=== PATIENT | male | born 1965 | race Caucasian/White ===

== ENCOUNTER 2016-09-19 11:50 | Inpatient (IN) | payer MEDICARE, OTHER ==
[2016-09-19] VITALS (7 sets, daily range): BP systolic 130–153; BP diastolic 80–96
[~2016-09-19] VITALS: Ht 182.9 cm; Wt 86.0 kg
[~2016-09-19 11:50] MED LIST: ALBU83IN INH; ATIV1TAB7 PO; BACL10TA2 PO; DEXT30SUSP PO; DOXY10CA PO; FENT25PA TD; GABA600T PO; GABA800T PO; KETO10TAB PO; METO50TA2 PO; MIRT30TA3 PO; MUCI600T34 PO; NAPR500T2 PO; NEUR300C PO; OXYC-517 PO; PARO30TA70 PO; PARO40TA2 PO; PRAZ2CAP PO; PRED10TA FT; PROA1AER INH; SPIR1CAP INH; SYMB16INH INH; SYMB80INH INH; TRAZ50TA4 PO; TYLE1TAB5 PO
[2016-09-19] MEDS ORDERED: NS 1,000 ML IV SCH (12:38)
[2016-09-19] MEDS ORDERED: LORazepam 2 MG/ML VIAL (J2060) IV STA ×2 (12:38→14:41)
[2016-09-19] MEDS ORDERED: PANTOPRAZOLE 40MG INJ (PROTONIX) (C9113) IV ONE (12:45)
[2016-09-19] MEDS ORDERED: NS 500 ML IV ONE ×2 (12:45→14:00)
[2016-09-19 12:57] LABS: BASO # 0.1 K/mm3 (0.0-0.2); BASO % 0.8 % (0.0-1.0); EOS % 0.7 % (0.0-3.0); LARGE UNSTAINED CELL # 0.1 K/mm3 (0.0-0.4); LARGE UNSTAINED CELL % 1.3 % (0.0-4.0); LYMPH # 1.5 K/mm3 (1.5-4.5); LYMPH % 18.9 % (24.0-44.0); MEAN CORPUSCULAR HEMOGLOBIN 32.1 pg (27.0-33.0); MEAN CORPUSCULAR HGB CONC 33.1 g/dl (32.0-36.5); MEAN CORPUSCULAR VOLUME 97.1 fl (80.0-96.0); MONO # 0.6 K/mm3 (0.0-0.8); MONO % 8.1 % (0.0-5.0); NEUTROPHILS # 5.1 K/mm3 (1.8-7.7); NEUTROPHILS % 70.1 % (36.0-66.0); PLATELET COUNT, AUTOMATED 148 k/mm3 (150-450); RED CELL DISTRIBUTION WIDTH 13.4 % (11.5-14.5); WHITE BLOOD COUNT 7.3 K/mm3 (4.0-10.0)
[2016-09-19 13:01] LABS: INR 1.03
[2016-09-19 13:07] LABS: ALBUMIN/GLOBULIN RATIO 1.05 (1.00-1.93); ALKALINE PHOSPHATASE 79 U/L (45-117); ALT/SGPT 98 U/L (12-78); AMYLASE 109 U/L (25-115); ANION GAP 15 MEQ/L (8-16); AST/SGOT 127 U/L (15-37); BILIRUBIN,DIRECT 0.2 MG/DL (0.0-0.2); BILIRUBIN,TOTAL 0.7 MG/DL (0.2-1.0); BLOOD UREA NITROGEN 5 MG/DL (7-18); CALCIUM LEVEL 8.7 MG/DL (8.5-10.1); CARBON DIOXIDE LEVEL 18 MEQ/L (21-32); CHLORIDE LEVEL 106 MEQ/L (98-107); CREATININE FOR GFR 0.82 MG/DL (0.70-1.30); GLOMERULAR FILTRATION RATE > 60.0 (>56); GLUCOSE, FASTING 166 MG/DL (70-105); POTASSIUM SERUM 3.7 MEQ/L (3.5-5.1); SODIUM LEVEL 139 MEQ/L (136-145); TOTAL PROTEIN 7.8 GM/DL (6.4-8.2)
--- NOTE | 2016-09-19 13:54 | REP ---
PORTABLE CHEST: AP portable view of the chest is performed and compared to a prior study of 06/12/2016. Interstitial fibrosis bilaterally appears essentially stable. The cardiomediastinal silhouette has not definitely changed. The patient is somewhat rotated and the chin overlies the medial lung apices bilaterally. IMPRESSION: Grossly stable with no acute finding. Signed by Hermilo Aldridge MD 09/19/2016 04:53 P
[2016-09-19] MEDS ORDERED: ISOVUE-370 76% 100ML VIAL (Q9967) As Ordered ONE (14:15)
--- NOTE | 2016-09-19 15:28 | REP ---
CT ABDOMEN AND PELVIS WITH IV CONTRAST: TECHNIQUE: Axial contrast enhanced images from the lung bases to the pubic symphysis using 100 mL Isovue 370 intravenous contrast material with multiplanar reformations. Visualized lung bases again demonstrate dense calcific nodular opacities along the pleural surfaces on the right as seen on prior CT of the chest 06/12/2016. This is again suggestive of previous talc pleurodesis. Liver demonstrates diffuse fatty infiltration. Gallbladder is grossly unremarkable. The spleen, adrenals, pancreas and kidneys are unremarkable. There is no abdominal aortic aneurysm with mild scattered atherosclerotic calcifications. There is no adenopathy. There is no free air or free fluid. There is no bowel wall thickening. The appendix is normal. There is sigmoid and left colonic diverticulosis without evidence of acute diverticulitis. There is no pelvic mass. The urinary bladder is not well distended and not well evaluated. There is a left inguinal hernia which contains fat. There is an oval structure inferiorly in the left inguinal canal which I suspect represents the left testicle located in the canal. IMPRESSION: Small left inguinal hernia contains fat and the left testicle appears to be located in the left inguinal canal. Colonic diverticulosis without acute diverticulitis. No free air or free fluid. Fatty infiltration of the liver. Signed by Hermilo Aldridge MD 09/19/2016 04:55 P
[2016-09-19] MEDS ORDERED: NS 1,000 ML IV ONE (15:30)
[2016-09-19] MEDS ORDERED: LORazepam 2 MG TAB PO PRN (15:45)
[2016-09-19] MEDS ORDERED: SUCRALFATE 1 GM TAB PO ONE (16:00)
[2016-09-19] MEDS ORDERED: MULTIVITAMIN -ADULT INJECTION 10 ML, THIAMINE INJection 100 MG, FOLIC ACID 1 MG in NS 1... IV ONE (16:00)
[2016-09-19] MEDS ORDERED: IPRATROPIUM 0.5MG/ALBUTEROL 2.5MG INH SOL UD 3ML (DUONEB)(J7620) NEB PRN (16:15)
[2016-09-19] MEDS ORDERED: LEVALBUTEROL 1.25 MG/0.5 ML CONCENTRATE NEB NEB ONE (16:30)
[2016-09-19] MEDS ORDERED: METOPROLOL TART 50 MG TAB PO ONE (16:30)
[2016-09-19] MEDS ORDERED: diazePAM 5 MG TAB PO ONE (16:30)
[2016-09-19] MEDS ORDERED: LEVALBUTEROL 1.25 MG/0.5 ML CONCENTRATE NEB INH PRN (16:30)
[2016-09-19] MEDS: cloNIDine 0.1 MG TAB PO SCH ×3 (17:00→23:56)
[2016-09-19 18:37] LABS: ANION GAP 9 MEQ/L (8-16); BLOOD UREA NITROGEN 4 MG/DL (7-18); CALCIUM LEVEL 7.6 MG/DL (8.5-10.1); CARBON DIOXIDE LEVEL 21 MEQ/L (21-32); CHLORIDE LEVEL 110 MEQ/L (98-107); GLOMERULAR FILTRATION RATE > 60.0 (>56); GLUCOSE, FASTING 101 MG/DL (70-105); SODIUM LEVEL 140 MEQ/L (136-145)
--- NOTE | 2016-09-19 19:11 | ECGEPIP ---
Stationary ECG Study [facility] - ED Test Date: 2016-09-19 Pat Name: GENOVEVA LUNA Department: Room: - Gender: M Chief Strategy Officer: minnie : 1965 Requested By: INGRID Leon Order Number: [id number] Reading MD: Fahad Carlson Measurements Intervals [place] Rate: 120 P: 8 ND: 293 QRS: 13 QRSD: 83 T: -4 QT: 305 QTc: 432 Interpretive Statements SINUS TACHYCARDIA NSTTW ABNORMALITIES SIMILAR TO 06/12/16 Electronically Signed On 09-19-2016 19:10:39 EDT by Fahad Carlson
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
[2016-09-19] MEDS: IPRATROPIUM 0.5MG/ALBUTEROL 2.5MG INH SOL UD 3ML (DUONEB)(J7620) NEB SCH (20:00)
[2016-09-19] MEDS: ONDANSETRON 4MG/2ML VIAL (J2405) IV PRN (20:15)
[2016-09-19] MEDS: chlordiazePOXIDE 25 MG CAP PO SCH ×2 (20:16→21:56)
[2016-09-19] MEDS: METOPROLOL TART 50 MG TAB PO SCH (20:16)
[2016-09-19] MEDS: LISINOPRIL 5 MG TAB PO SCH (20:16)
[2016-09-19] MEDS: PANTOPRAZOLE 40MG INJ (PROTONIX) (C9113) IV SCH (20:16)
[2016-09-19] MEDS: LORazepam 1 MG TAB PO PRN ×2 (20:18→23:56)
[2016-09-19] MEDS: SUCRALFATE 1 GM TAB PO SCH (21:56)
[2016-09-19] MEDS: LEVALBUTEROL 1.25 MG/0.5 ML CONCENTRATE NEB INH SCH (22:06)
[2016-09-20] VITALS (13 sets, daily range): BP systolic 117–143; BP diastolic 72–95
[2016-09-20] MEDS ORDERED: MULTIVITAMIN -ADULT INJECTION 10 ML, THIAMINE INJection 100 MG, FOLIC ACID 1 MG in NS 1... IV ONE (02:00)
[2016-09-20] MEDS: SUCRALFATE 1 GM TAB PO SCH ×4 (03:23→20:55)
[2016-09-20] MEDS: chlordiazePOXIDE 25 MG CAP PO SCH ×3 (03:23→12:04)
[2016-09-20] MEDS: LEVALBUTEROL 1.25 MG/0.5 ML CONCENTRATE NEB INH SCH ×6 (04:00→19:55)
[2016-09-20] MEDS: cloNIDine 0.1 MG TAB PO SCH ×2 (05:00→09:00)
[2016-09-20 05:26] LABS: BASO % 0.4 % (0.0-1.0); EOS # 0.1 K/mm3 (0.0-0.50); EOS % 2.3 % (0.0-3.0); LARGE UNSTAINED CELL # 0.1 K/mm3 (0.0-0.4); LYMPH # 1.1 K/mm3 (1.5-4.5); MEAN CORPUSCULAR HEMOGLOBIN 32.1 pg (27.0-33.0); MEAN CORPUSCULAR HGB CONC 33.3 g/dl (32.0-36.5); MEAN CORPUSCULAR VOLUME 96.1 fl (80.0-96.0); MONO # 0.3 K/mm3 (0.0-0.8); MONO % 8.9 % (0.0-5.0); NEUTROPHILS # 2.3 K/mm3 (1.8-7.7); NEUTROPHILS % 60.5 % (36.0-66.0); RED CELL DISTRIBUTION WIDTH 13.3 % (11.5-14.5); WHITE BLOOD COUNT 3.9 K/mm3 (4.0-10.0)
[2016-09-20 05:29] LABS: PLATELET COUNT, AUTOMATED 82 k/mm3 (150-450)
[2016-09-20 05:31] LABS: ALBUMIN 2.8 GM/DL (3.2-5.2); ALBUMIN/GLOBULIN RATIO 1.04 (1.00-1.93); ALKALINE PHOSPHATASE 54 U/L (45-117); ALT/SGPT 64 U/L (12-78); ANION GAP 7 MEQ/L (8-16); AST/SGOT 68 U/L (15-37); BILIRUBIN,DIRECT 0.3 MG/DL (0.0-0.2); BILIRUBIN,TOTAL 1.1 MG/DL (0.2-1.0); BLOOD UREA NITROGEN 5 MG/DL (7-18); CALCIUM LEVEL 7.1 MG/DL (8.5-10.1); CARBON DIOXIDE LEVEL 24 MEQ/L (21-32); CHLORIDE LEVEL 110 MEQ/L (98-107); CREATININE FOR GFR 0.68 MG/DL (0.70-1.30); GLOMERULAR FILTRATION RATE > 60.0 (>56); GLUCOSE, FASTING 88 MG/DL (70-105); POTASSIUM SERUM 3.5 MEQ/L (3.5-5.1); SODIUM LEVEL 141 MEQ/L (136-145); TOTAL PROTEIN 5.5 GM/DL (6.4-8.2)
[2016-09-20] MEDS: IPRATROPIUM 0.5MG/ALBUTEROL 2.5MG INH SOL UD 3ML (DUONEB)(J7620) NEB SCH ×4 (07:23→19:55)
[2016-09-20 07:48] LABS: MAGNESIUM LEVEL 1.5 MG/DL (1.8-2.4)
[2016-09-20] MEDS: LISINOPRIL 5 MG TAB PO SCH ×2 (09:00→20:55)
[2016-09-20] MEDS: METOPROLOL TART 50 MG TAB PO SCH ×2 (09:00→20:55)
[2016-09-20] MEDS: PANTOPRAZOLE 40MG INJ (PROTONIX) (C9113) IV SCH ×2 (09:35→20:50)
[2016-09-20 10:14] LABS: VITAMIN B12 LEVEL 370 PG/ML (247-911)
[2016-09-20] MEDS: LORazepam 1 MG TAB PO PRN ×2 (10:25→11:36)
[2016-09-20] MEDS ORDERED: SLF 3 ML SYR IV PRN (10:30)
--- NOTE | 2016-09-20 12:20 | REP ---
SCROTAL ULTRASOUND: Real-time sonographic evaluation of the scrotum and contents performed. Correlation with CT 09/19/2016. On the CT exam, there was a question raised of possible left testicle in the left inguinal canal. Both testicles are within the scrotum and are normal in size and echotexture, right testicle measuring 3.6 x 2.2 x 3.2 cm and the left testicle 4.1 x 2.3 x 2.9 cm. There is no testicular mass or torsion. Blood flow is seen in each testicle with duplex Doppler evaluation, RI right testicle 0.8, left testicle 0.61. A cyst in the body of the right epididymis measures 10 x 7 x 8 mm. Mildly prominent venous structures posteriorly on the left suggest a small varicocele with venous structures measuring up to 3 mm in diameter. IMPRESSION: Both testicles within the scrotal sac with no mass or torsion. Cyst in the body of the right epididymis. Small left varicocele. Signed by Hermilo Aldridge MD 09/20/2016 05:37 P
[2016-09-20] MEDS ORDERED: LORazepam 2 MG/ML VIAL (J2060) IV PRN (12:45)
[2016-09-20] MEDS ORDERED: POTASSIUM CHLORIDE 10 MEQ SR TABLET PO ONE (12:45)
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
--- NOTE | 2016-09-20 12:58 | IPNPDOC ---
Date Seen The patient was seen on 09/20/16. Progress Note SUBJECTIVE: Patient tells me that he feels well today he tells me that he still is having shakes and tremors but he denies nausea or vomiting he tells me that he has no abdominal pain whatsoever and no chest pain or no shortness of breath. He feels better than he did yesterday OBJECTIVE PHYSICAL EXAMINATION: VITAL SIGNS: Please see below. GENERAL: Disheveled middle-aged man laying in bed on his right side he does not appear to be in any acute distress HEENT: Disheveled old facial scars poor dentation malodorous moist mucous membranes, he is not diaphoretic CARDIOVASCULAR: S1-S2 not tachycardic. RESPIRATORY: Clear to auscultation bilaterally. ABDOMINAL: Sounds are present abdomen soft obese and nontender EXTREMITIES: No clubbing cyanosis or edema LABORATORY DATA: Please see below. MICROBIOLOGY: Please see below. IMAGING: He had a chest x-ray that was grossly stable with no acute findings The patient had a CT of the abdomen and pelvis, which revealed small left inguinal hernia contains fat and possibly left testicle in the left inguinal canal colonic diverticulosis without acute diverticulitis no free air fatty infiltrate of the liver Scrotal ultrasound revealed both testicles within the scrotal sac with no mass or torsion small left varicocele and assist in the body of the right epididymis DVT prophylaxis ordered?: Sequentials and teds no pharmacological agents in the setting of possible bleeding ASSESSMENT AND PLAN: This is a 51-year-old man with alcohol withdrawal syndrome. PROBLEMS: (1) Alcohol withdrawal The patient's symptoms are well-controlled at this time he is not hypertensive diaphoretic febrile or tachycardic. At this time we'll discontinue the Librium protocol and provide him with Librium when necessary and IV Ativan when necessary only. He does appear to still have some tremors on exam. The patient is on full gases multivitamin and thiamine. This is also likely the etiology for the patient's mild pancytopenia we'll check a peripheral smear. (2) Upper GI bleed The patient is on Protonix and Carafate he has been seen by Dr. Ervin who reportedly told him there were no intervention needed at this time and Dr. Ervin has advanced his diet to a regular diet, the patient may have had a mild Kady-Roca tear secondary to dry heaving. Continue to monitor H&H continue with PPI Protonix and the patient does have a history of taking ibuprofen and an increased rate for chronic pain at the present time is not having any abdominal symptoms. (3) Depression with suicidal ideation The patient reported that he thought about taking a whole lot of pills or ramming his car into another car to end his own life. For the time being we'll continue with a one-to-one sitter he would likely benefit from a psychiatry consultation prior to any dispositioning to ensure he does not require inpatient mental health services (4) Left inguinal hernia Dr. Ervin's help is appreciated there is no testicular torsion or migration. The patient has a left-sided varicocele which would benefit from outpatient follow-up along with his left internal hernia (5) Marfan syndrome optimize BP control the patient is not exhibiting any signs or symptoms of aortic dissection at this time his symptoms are resolving we'll hold off on echocardiogram will reassess if there is a change in the patient's clinical status (6) History of type C viral hepatitis received ribavirin treatment in past- around year 1999 reportedly obtained hepatitis C from blood transfusion when he was in the many [place], [place]. May be contributing factor to his fatty liver but also likely significant alcohol abuse (7) Chronic back pain dorsal column stimulator, would avoid NSAIDs in the acute setting appears quite comfortable at this time (8) Abdominal pain Resolved likely related to dry heaves potentially some gastritis continue with PPI and Carafate (9) HTN (hypertension) Continue home metoprolol the patient has also been had lisinopril added monitor his blood pressures closely. We'll hold off on clonidine as he does not appear to be the most compliant patient I suspect he would suffer from a rebound hypertension if he would have her stop taking this. At this time it also does not appear that he needs his medications to control his blood pressure (10) COPD (chronic obstructive pulmonary disease) Stable he is not requiring any oxygen he is at his baseline respiratory status continue with Xopenex DISPOSITION: We'll continue to monitor the patient closely. VS, I&O, 24H, Fishbone Vital Signs/I&O Vital Signs Date Time Temp Pulse Resp B/P Pulse Ox O2 Delivery O2 Flow Rate FiO2 09/20/16 11:35 80 135/89 09/20/16 11:30 97.9 22 96 Room Air I&O- Last 24 Hours up to 6 AM 09/20/16 06:00 Intake Total 4560 ml Output Total 300 ml Balance 4260 ml Laboratory Data 24H LABS Laboratory Tests 2 09/19/16 16:50: Lactic Acid Level 1.4 09/19/16 17:53: Anion Gap 9, Blood Urea Nitrogen 4L, Creatinine 0.80, Sodium Level 140, Potassium Level 4.0, Chloride Level 110H, Carbon Dioxide Level 21, Calcium Level 7.6L, Folate 24.0, Glomerular Filtration Rate > 60.0, Vitamin B12 Level 370 09/19/16 20:44: Lactic Acid Level 1.3 09/20/16 05:00: Anion Gap 7L, Calcium Level 7.1L, Glomerular Filtration Rate > 60.0, Aspartate Amino Transf (AST/SGOT) 68H, Alanine Aminotransferase (ALT/SGPT) 64, Alkaline Phosphatase 54, Total Bilirubin 1.1#H, Direct Bilirubin 0.3H, Albumin 2.8#L, Albumin/Globulin Ratio 1.04, White Blood Count 3.9L, Red Blood Count 4.07L, Hemoglobin 13.1L, Hematocrit 39.1L, Mean Corpuscular Volume 96.1H, Mean Corpuscular Hemoglobin 32.1, Mean Corpuscular Hemoglobin Concent 33.3, Red Cell Distribution Width 13.3, Platelet Count 82L, Neutrophils (%) (Auto) 60.5, Lymphocytes (%) (Auto) 26.0, Monocytes (%) (Auto) 8.9H, Eosinophils (%) (Auto) 2.3, Basophils (%) (Auto) 0.4, Neutrophils # (Auto) 2.3, Lymphocytes # (Auto) 1.1L, Monocytes # (Auto) 0.3, Eosinophils # (Auto) 0.1, Basophils # (Auto) 0.0, Large Unclassified Cells # 0.1, Large Unclassified Cells % 2.0, Magnesium Level 1.5L, Thyroid Stimulating Hormone (TSH) 2.670, Total Protein 5.5#L CBC/BMP Laboratory Tests 09/19/16 17:53 Calcium Level 7.6 L 09/19/16 23:43 09/20/16 05:00 Red Blood Count 4.07 L, Mean Corpuscular Volume 96.1 H, Mean Corpuscular Hemoglobin 32.1, Mean Corpuscular Hemoglobin Concent 33.3, Red Cell Distribution Width 13.3, Neutrophils (%) (Auto) 60.5, Lymphocytes (%) (Auto) 26.0, Monocytes (%) (Auto) 8.9 H, Eosinophils (%) (Auto) 2.3, Basophils (%) ( Auto) 0.4, Neutrophils # (Auto) 2.3, Lymphocytes # (Auto) 1.1 L, Monocytes # ( Auto) 0.3, Eosinophils # (Auto) 0.1, Basophils # (Auto) 0.0 Microbiology Microbiology 09/19/16 Blood Culture, Received Pending 09/19/16 Blood Culture, Received Pending MEI ENRIQUEZ MD Sep 20, 2016 12:58
--- NOTE | 2016-09-20 13:01 | IPN ---
DATE: 09/20/2016 The patient overnight has been stable. No hematemesis. No nausea, vomiting. Has not undergone any significant DTs overnight. From a GI standpoint, has not had any melanotic stools. No blood per rectum. Has tolerated clears without any nausea, vomiting, and states that overall his abdominal epigastric pain has resolved/resolving. His laboratory findings reveal that he has a stable hematocrit this morning. Since last night, his lactic acid is stable and not elevated. He has been afebrile. Abdomen is benign on exam. IMPRESSION AND PLAN: 1. Patient has GI bleeding and seems to be stable at this time. I would recommend that we start him on a regular diet and if he tolerates a regular diet and has a stable hematocrit, he can be discharged to home from a surgical standpoint and followup with GI as an outpatient. I do feel that a GI followup is more appropriate given that he has a much higher risk of esophageal varices or gastric varices, although I am not seeing any evidence of this on the CAT scan for gastric varices, esophageal varices. I am concerned there is some contrast along the distal esophagus in the mucosa suggesting some venous phase uptake, i.e. veins are prominent in this area. If GI evaluation/followup is not arranged, I would be glad to see him in my office in 2-3 weeks for followup. 2. Inguinal hernia. As I stated previously, I am not seeing a significant abnormality on his physical exam. His scrotal ultrasound results are not back as of yet. I do not see any evidence of significant abnormality on the left-hand side. Thus, he can followup on a as needed basis concerning this issue as well. If the final ultrasound report dictates something contrary to this, I would recommend urology followup.
[2016-09-20 13:39] LABS: REASON FOR REVIEW COMPREHENSIVE REVIEW
[2016-09-20] MEDS: MAG SULF 1GM/100ML (MAG RUN) 1 GM in APPROPRIATE DILUENT 1 EA IV SCH ×2 (14:00→14:20)
[2016-09-20] MEDS: SLF 3 ML SYR IV SCH ×2 (14:21→20:56)
[2016-09-20] MEDS: MULTIVITAMINS/MINERALS THERAP 1 TAB PO SCH (14:49)
[2016-09-20] MEDS: ONDANSETRON 4MG/2ML VIAL (J2405) IV PRN ×2 (14:49→20:50)
[2016-09-20] MEDS: THIAMINE 100 MG TAB PO SCH (14:49)
[2016-09-20] MEDS: FOLIC ACID 1 MG TAB PO SCH (14:49)
[2016-09-20] MEDS ORDERED: ALBUTEROL 90 MCG/ACT 8GM HFA INHALER INH PRN (17:15)
[2016-09-20] MEDS: GABAPENTIN 300 MG CAP PO SCH ×2 (18:00→20:54)
[2016-09-20] MEDS: chlordiazePOXIDE 25 MG CAP PO PRN (18:18)
[2016-09-20] MEDS: PARoxetine 10MG TABLET PO SCH (18:45)
--- NOTE | 2016-09-20 19:32 | ECHO ---
DATE OF PROCEDURE: 09/20/2016 AGE: 51 GENDER: Male HEIGHT: 72 inches WEIGHT: 169 pounds BODY SURFACE AREA: 1.99 m2. Inpatient progressive care unit (PCU) Room 3219. REFERRING PHYSICIAN: Brianna Bose INDICATION: Marfan's. Dilated aortic root. Murmur. MEASUREMENTS: 2-D measurements: RV - 4.2 cm LV - 5.2 cm Septum- 1.1 cm Posterior wall- 1.1 cm Aortic root- 4.1 cm LA - 3.8 cm LVEF- 65% Doppler measurements: AV - 1.2 m/s LVOT - 0.98 m/s LVOT diameter 2.2 cm MV-E - 77 A- 86 E/A ratio 0.9 Early mitral deceleration time: 190 m/s E-Prime 6.2 A-Prime 14 E/E Prime ratio 12.5 PV - 0.8 m/s Pulmonary artery acceleration time 99 m/s RVSP- 34 mmHg IVC - 2.1 cm COMMENTS: Normal sinus rhythm without intraventricular conduction disturbance. Slightly challenging study in light of the patient's chest configuration but diagnostically useful information was still obtained. Left atrial size upper limits of normal. Normal left ventricular size. Right heart chamber sizes were both of borderline increased. Normal left ventricle (LV) wall thickness. On real-time imaging from the parasternal and apical injections, wall motion appeared to be symmetrical and normal. Normal-appearing mitral valvular apparatus and leaflet excursion with no posterior systolic buckling. Three equal size aortic cusps of normal thickness and cusp separation. At least mildly dilated aortic root but normal ascending aortic size. No apparent intracardiac mass or pericardial effusion. Color flow Doppler study taken from the parasternal and projection showed at least mild aortic, very mild mitral and trace aortic insufficiency. Guided continuous wave Doppler of his aortic valve showed a normal peak systolic velocity against LV outflow tract obstruction. Pulsed and continuous wave Doppler of his LV inflow tract taken from the apical four-chamber projection showed normal diastolic filling velocities against mitral stenosis. There was slightly more prominent late diastolic / atrial dependent filling pattern. His early mitral deceleration time was normal but tissue Doppler of his mitral annulus to suggest degree of LV diastolic dysfunction as well. Current estimated mean left atrial pressure however was upper limits of normal at 12 - 13 mmHg. Pulsed and continuous wave Doppler of his pulmonary trunk showed a normal peak systolic velocity against right ventricular (RV) outflow tract obstruction. His pulmonary artery acceleration time was mildly abbreviated suggestive an elevated pulmonary vascular resistance. Guided continuous wave Doppler of his tricuspid valve allowed our estimation of his right ventricular systolic pressure (at least mildly elevated). His inferior vena cava was upper limits of normal in size. CONCLUSIONS: Normal left ventricular size, wall thickness and wall motion. Borderline dilated left atrium with Doppler evidence of an impairment of LV diastolic function but currently normal to upper limits of normal estimated mean left atrial pressure. Borderline dilated right heart chambers with Doppler with normal right ventricular systolic function. Mildly elevated pulmonary arterial pressure. Slightly dilated IVC size. At least mildly dilated aortic root with mild aortic insufficiency. No intrinsic aortic valvular abnormality. Normal appearing mitral valve with very mild insufficiency.
[2016-09-20] MEDS: SYMBICORT 160/4.5MCG INHALER 6GM INH SCH (19:54)
[2016-09-20] MEDS ORDERED: TIOTROPIUM INHALER/CAPSULE (SPIRIVA) INH SCH (20:00)
[2016-09-20] MEDS: BACLOFEN 10 MG TAB PO SCH (20:55)
[2016-09-20] MEDS ORDERED: traZODone 100 MG TAB PO SCH (21:00)
[2016-09-20] MEDS ORDERED: chlordiazePOXIDE 25 MG CAP PO SCH (21:00)
[2016-09-20] MEDS ORDERED: MIRTAZAPINE 15 MG TAB PO SCH (21:00)
[2016-09-20] MEDS ORDERED: PRAZOSIN 1 MG CAP PO SCH (21:00)
[2016-09-21] VITALS (7 sets, daily range): BP systolic 93–155; BP diastolic 55–107
[2016-09-21] MEDS: chlordiazePOXIDE 25 MG CAP PO PRN ×3 (01:35→15:40)
[2016-09-21] MEDS: LEVALBUTEROL 1.25 MG/0.5 ML CONCENTRATE NEB INH SCH ×5 (04:00→16:00)
[2016-09-21] MEDS: SLF 3 ML SYR IV SCH ×2 (04:01→12:18)
[2016-09-21] MEDS: SUCRALFATE 1 GM TAB PO SCH ×3 (04:01→15:39)
[2016-09-21] MEDS ORDERED: ACETAMINOPHEN TAB 650MG DOSE (2X325MG) PO ONE (04:15)
[2016-09-21 05:37] LABS: BASO % 0.3 % (0.0-1.0); EOS # 0.1 K/mm3 (0.0-0.50); EOS % 1.7 % (0.0-3.0); LARGE UNSTAINED CELL # 0.1 K/mm3 (0.0-0.4); LARGE UNSTAINED CELL % 1.8 % (0.0-4.0); LYMPH % 24.8 % (24.0-44.0); MEAN CORPUSCULAR HEMOGLOBIN 32.5 pg (27.0-33.0); MEAN CORPUSCULAR VOLUME 98.6 fl (80.0-96.0); MONO # 0.2 K/mm3 (0.0-0.8); MONO % 5.7 % (0.0-5.0); NEUTROPHILS # 2.6 K/mm3 (1.8-7.7); NEUTROPHILS % 65.6 % (36.0-66.0); RED CELL DISTRIBUTION WIDTH 13.1 % (11.5-14.5)
[2016-09-21 05:43] LABS: PLATELET COUNT, AUTOMATED 86 k/mm3 (150-450)
[2016-09-21 05:51] LABS: ALBUMIN 2.9 GM/DL (3.2-5.2); ALBUMIN/GLOBULIN RATIO 1.12 (1.00-1.93); ALKALINE PHOSPHATASE 55 U/L (45-117); ALT/SGPT 51 U/L (12-78); ANION GAP 8 MEQ/L (8-16); AST/SGOT 48 U/L (15-37); BILIRUBIN,DIRECT 0.2 MG/DL (0.0-0.2); BILIRUBIN,TOTAL 0.8 MG/DL (0.2-1.0); BLOOD UREA NITROGEN 4 MG/DL (7-18); CALCIUM LEVEL 7.7 MG/DL (8.5-10.1); CARBON DIOXIDE LEVEL 25 MEQ/L (21-32); CHLORIDE LEVEL 111 MEQ/L (98-107); CREATININE FOR GFR 0.81 MG/DL (0.70-1.30); GLOMERULAR FILTRATION RATE > 60.0 (>56); GLUCOSE, FASTING 145 MG/DL (70-105); POTASSIUM SERUM 3.3 MEQ/L (3.5-5.1); SODIUM LEVEL 144 MEQ/L (136-145); TOTAL PROTEIN 5.5 GM/DL (6.4-8.2)
[2016-09-21] MEDS: IPRATROPIUM 0.5MG/ALBUTEROL 2.5MG INH SOL UD 3ML (DUONEB)(J7620) NEB SCH ×3 (07:36→15:26)
[2016-09-21] MEDS: SYMBICORT 160/4.5MCG INHALER 6GM INH SCH (07:36)
[2016-09-21] MEDS: PANTOPRAZOLE 40MG INJ (PROTONIX) (C9113) IV SCH (08:59)
[2016-09-21] MEDS: BACLOFEN 10 MG TAB PO SCH (09:00)
[2016-09-21] MEDS: THIAMINE 100 MG TAB PO SCH (09:00)
[2016-09-21] MEDS: FOLIC ACID 1 MG TAB PO SCH (09:00)
[2016-09-21] MEDS: LISINOPRIL 5 MG TAB PO SCH (09:00)
[2016-09-21] MEDS: GABAPENTIN 300 MG CAP PO SCH ×2 (09:01→15:39)
[2016-09-21] MEDS: PARoxetine 10MG TABLET PO SCH (09:01)
[2016-09-21] MEDS: MULTIVITAMINS/MINERALS THERAP 1 TAB PO SCH (09:01)
[2016-09-21] MEDS: METOPROLOL TART 50 MG TAB PO SCH (09:01)
[2016-09-21] MEDS: oxyCODONE 5MG TAB PO PRN ×2 (11:07→17:38)
[2016-09-21] MEDS ORDERED: oxyCODONE 5MG TAB PO ONE (12:15)
[2016-09-21] MEDS ORDERED: chlordiazePOXIDE 25 MG CAP PO SCH (19:00)
[2016-09-21] MEDS ORDERED: SUCR1TA PO (19:13)
[2016-09-21] MEDS ORDERED: VITMTA PO (19:13)
[2016-09-21] MEDS ORDERED: THIA100TA PO (19:13)
[2016-09-21] MEDS ORDERED: FOLI1TAB2 PO (19:13)
[2016-09-21] MEDS ORDERED: CHLO25CA PO (19:13)
[2016-09-21] MEDS ORDERED: PROT1TAB2 PO (19:13)
--- NOTE | 2016-09-22 08:16 | CR ---
DATE OF CONSULTATION: 09/21/2016 HISTORY OF PRESENT ILLNESS: This is a 51-year-old white man with serious problems with alcohol abuse who is admitted for delirium tremens and mild gastrointestinal bleed. At this point, he seems to be stable and seemed to be detoxifying without any major complications. I was asked to see the patient because at some point the patient had voiced thoughts of suicide saying that he wanted to take pills or maybe crash his car. The patient tells me that he said that early on when he was not feeling good physically because he was detoxing. He said that they asked him if he was going to hurt himself and how he would hurt himself and he said that is why he mentioned no specific manner. He says that he had no suicidal intention then or now. He says that he is feeling much better now that he has completed detoxification. He denies that he is having depression at this point. We discussed the fact that apparently his had kicked him out of the home and that he had been staying at a motel. He says that his plan is to go back to that motel but then he has decided that he does not want to drink anymore and he wants to seek treatment for that. He does say that he gets psychiatric treatment through the [facility] and they have him on Paxil 25 mg once daily. He says that he has some posttraumatic stress disorder (PTSD) symptoms, mostly in the form of nightmares, but again this is a chronic condition for the patient. I did not elicit any hypomanic or manic-like symptoms in this patient, or obsessive compulsive disorder (OCD) or panic disorder. PAST PSYCHIATRIC HISTORY: He has never had any admission to a psychiatric unit. As I said above, he has [facility] for PTSD symptoms, mostly in the way of nightmares, and he is on Paxil 25 mg daily. SUBSTANCE ABUSE HISTORY: He says that he was drinking anywhere from 12 to 20 beers every day. He denies using any drugs. ABUSE HISTORY: He denies any history of physical or sexual abuse. FAMILY HISTORY: He says that he was adopted. MEDICAL HISTORY: As I said, he has just completed detoxification and it appears that he was having delirium tremens when he was first admitted. 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 MENTAL STATUS EXAMINATION: This patient is alert and oriented times three. Eye contact is fairly good. Psychomotor activity is normal. There is no formal thought disorder. He said his mood is good. Affect is full range and appropriate. He is not suicidal. Concentration is fair. Memory intact. Insight and judgment good. DIAGNOSES: 1. Posttraumatic stress disorder (PTSD) by history. 2. Alcohol use disorder, severe. 3. Status post alcohol withdrawal syndrome. TREATMENT PLAN: I do want to clarify that in reviewing the patient's admission note and progress notes, the patient did have withdrawal symptoms, but there was no evidence of any delirium tremens. At this point, the patient is denying suicidal ideation. He did say that he voiced some suicidal thoughts but that was at the beginning when he was not feeling good physically. Therefore, from a psychiatric point of view, he is not committable. He does not want to the psychiatric unit. He is determined, he says, that he does not want to go back to drinking again after going back to the motel, but he is aware that [facility] outpatient addictions program has walk-in appointments every day in the morning. I told him to get there as soon as possible in the morning on Friday and he said that he will. I discussed with the patient that he might benefit from inpatient treatment and that they might be able to then help him with referral. The patient's father had actually been visiting the patient and I asked him if it was possible for him to go and stay with his parents, but basically he says that both parents tend to drink every day also and so that is not a stable environment for him.
--- NOTE | 2016-09-22 14:52 | DSES ---
DATE OF ADMISSION: 09/19/2016 DATE OF DISCHARGE: 09/21/2016 DISCHARGE DIAGNOSIS: Alcohol withdrawal. SECONDARY DIAGNOSES: 1. Depression with suicidal ideation. 2. Upper gastrointestinal bleed. 3. Left inguinal hernia. 4. Questionable Marfan's syndrome. 5. Hepatitis C. 6. Chronic back pain. 7. Hypertension. 8. Chronic obstructive pulmonary disease (COPD). HOSPITALIZATION COURSE: The patient is a 51-year-old man who recently had an argument with his and was living in a motel. He has chronic severe alcohol use disorder. He has been drinking more heavily in the recent weeks. He has been trying to stop drinking, but he began having severe nausea, vomiting, abdominal pain. He did have some hematemesis. The patient was admitted to the medical/surgical floor and was admitted to the hospitalist service. He was seen in consultation by Dr. Ervin. Initially, there was some concern that one of his testicles was in his inguinal sac based on imaging; however, physical examination and scrotal ultrasound did not reveal this and instead it was noted to be likely a varicocele. Hemoglobin and hematocrit remained stable. It was felt that his bleeding may have been related to some gastritis. Dr. Ervin was concerned that given his history of hepatitis C he may be at risk for esophageal varices and suggested that he should followup with gastroenterology in the near future on the outpatient setting. 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 No interventions were required. He was placed on proton pump inhibitor and Carafate. In regard to his inguinal hernia, there was no significant abnormality and he should likely have outpatient urology referral as well in regard to his varicocele. In terms of his alcohol withdrawal, the patient was treated medically. His symptoms did resolve and were easily controlled. In regard to his suicidal ideation, he was seen by Dr. Eddy of psychiatry, who did not feel that he warranted inpatient mental health and did not feel that he was a risk to himself. He was provided with contact information as a walk in to [facility] addictions services on Friday morning. SUBJECTIVE: The patient reports that he is feeling well. He denies any complaints and wants to go home. OBJECTIVE: VITAL SIGNS: Temperature 98.2, pulse 86, respiratory rate 19, blood pressure 140/74, oxygen saturation 98% on room air. GENERAL: He is a disheveled, middle aged, man resting comfortably in bed. No acute distress. HEENT: He has old facial scars. Moist mucous membranes. No elevation in central venous pressure. CARDIOVASCULAR EXAM: S1, S2. Regular. RESPIRATORY EXAM: Clear. ABDOMINAL EXAM: Obese. He has some tenderness in the right upper quadrant. EXTREMITIES: No clubbing, cyanosis or edema. There is no tremor. LABORATORY STUDIES: WBC 4.0, hemoglobin 12.8, platelet count is 86. Chemistry panel: Sodium 144, potassium 3.3, chloride 111, bicarbonate 25, BUN 4, creatinine 0.8. IMAGING: The patient had a scrotal ultrasound that revealed a cyst in the body of the right epididymis, small left varicocele. ASSESSMENT AND PLAN: 51-year-old man with alcohol withdrawal syndrome. 1. Alcohol withdrawal syndrome. He will be discharged with medications to control his symptoms as he is recovering. He is provided with contact information and advised to report to [facility] addiction services Friday morning at 8:00 a.m. He is provided with folic acid, multivitamin, and thiamine. This is most likely the etiology for his pancytopenia. 2. Upper gastrointestinal bleed, likely secondary to some mild gastritis associated . 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 Avoid taking ibuprofen. 3. Depression with suicidal ideation. Dr. Eddy's help is appreciated. Dr. Eddy does not feel as though he is a risk to himself and does not warrant inpatient mental health services. 4. Left sided epididymal cyst and small varicocele. Consider outpatient urology followup. 5. Marfan's syndrome. Blood pressure controlled. No issues at this time. He had an echocardiogram, which revealed borderline dilated right hear chambers without significant gross abnormality. 6. Hepatitis C, status post treatment and reported cure in the year 1999. 7. Chronic pain. He has a dorsal column stimulator. Would avoid nonsteroidal antiinflammatory drugs in the future. 8. Hypertension. He was on metoprolol. This seems to be enough to control his blood pressure. He does not require any new prescriptions for this on his discharge. 9. Chronic obstructive pulmonary disease (COPD). He is at his baseline respiratory status. DISPOSITION: The patient is discharged home to his previous living environment. He is to followup with his primary care provider in 7 days, followup with psychiatric as soon as possible, followup with [facility] addiction clinic Friday morning. His activity and diet are as prior to admission; however, he is to avoid alcohol. I tried to electronically prescribe controlled substance but was having a computer malfunction and it was unable to be transmitted. As such, a paper prescription was provided for chloride chlordiazepoxide 50 mg every four hours as needed for withdrawal symptoms, #18, folic acid 1 mg daily, multivitamin one tablet daily, Protonix 40 mg daily, Carafate 1 gram every 6 hours, thiamine 100 mg daily, ProAir HFA 108 mcg two puffs four times a day as needed for shortness of breath, Baclofen 10 mg twice a day, Symbicort 160/4.5 two puffs inhaled twice a day, gabapentin 600 mg three times a day, metoprolol tartrate 50 mg twice a day, mirtazapine 30 mg at night, paroxetine 30 mg daily, Prazosin 6 mg at night, Spiriva 18 mcg inhaled at night, trazodone 100 mg at night. Greater than 30 minutes was spent organizing disposition.
[2016-09-22] MEDS ORDERED: chlordiazePOXIDE 25 MG CAP PO SCH (21:00)
== END 2016-09-21 19:50 | disposition home or self-care (01) | DRG 896 ==
LOC: M ED 13:40 → M ED INP 15:15 → M PCU 18:40
PROVIDERS: ADMIT General Practice; ATTEND Internal Medicine
DX: F10.239 Alcohol dependence with withdrawal, unspecified (principal); K29.21 Alcoholic gastritis with bleeding; Q87.40 Marfan syndrome, unspecified; D61.818 Other pancytopenia; J44.9 Chronic obstructive pulmonary disease, unspecified; F32.9 Major depressive disorder, single episode, unspecified; I10 Essential (primary) hypertension; R91.8 Other nonspecific abnormal finding of lung field; K76.0 Fatty (change of) liver, not elsewhere classified; F17.210 Nicotine dependence, cigarettes, uncomplicated; R10.13 Epigastric pain; K40.90 Unilateral inguinal hernia, without obstruction or gangrene, not specified as recurrent; M54.9 Dorsalgia, unspecified; I86.1 Scrotal varices; F43.12 Post-traumatic stress disorder, chronic; E66.9 Obesity, unspecified; N50.3 Cyst of epididymis; G89.29 Other chronic pain; Z88.8 Allergy status to other drugs, medicaments and biological substances; Z79.899 Other long term (current) drug therapy; Z86.19 Personal history of other infectious and parasitic diseases

== ENCOUNTER 2017-06-15 15:04 | Emergency (ER) | payer OTHER, MEDICARE ==
[2017-06-15] MEDS: ALBUTEROL SULFATE 2.5 MG/0.5 ML INH NEB SOLN NEB ×2 (18:12→20:08)
[2017-06-15 18:35] LABS: BASO # 0.1 10^3/uL (0.0-0.2); BASO % 0.7 % (0.0-1.0); EOS # 0.3 10^3/uL (0.0-0.50); EOS % 4.5 % (0.0-3.0); HEMOGLOBIN 14.8 g/dl (14.0-18.0); IMMATURE GRANULOCYTE % 0.4 % (0-0); LYMPH # 2.3 10^3/uL (1.5-4.5); LYMPH % 31.4 % (24.0-44.0); MEAN CORPUSCULAR HEMOGLOBIN 30.6 pg (27.0-33.0); MEAN CORPUSCULAR HGB CONC 33.6 g/dl (32.0-36.5); MEAN CORPUSCULAR VOLUME 90.9 fl (80.0-96.0); MONO # 0.6 10^3/uL (0.0-0.8); PLATELET COUNT, AUTOMATED 150 10^3/uL (150-450); RED BLOOD COUNT 4.84 10^6/uL (4.30-6.10); RED CELL DISTRIBUTION WIDTH 12.9 % (11.5-14.5); WHITE BLOOD COUNT 7.4 10^3/uL (4.0-10.0)
[2017-06-15] MEDS: NS 1,000 ML IV (18:40)
[2017-06-15] MEDS: KETOROLAC 30 MG/ML VIAL (J1885) IV (18:40)
[2017-06-15] MEDS: methylPREDNISolone INJ 125 MG/2 ML VIAL (J2930) IV (18:40)
[2017-06-15 18:59] LABS: ALBUMIN 4.1 GM/DL (3.2-5.2); ALBUMIN/GLOBULIN RATIO 1.32 (1.00-1.93); ALKALINE PHOSPHATASE 59 U/L (45-117); ALT/SGPT 21 U/L (12-78); ANION GAP 10 MEQ/L (8-16); AST/SGOT 18 U/L (7-37); BILIRUBIN,DIRECT < 0.1 MG/DL (0.0-0.2); BILIRUBIN,TOTAL 0.3 MG/DL (0.2-1.0); BLOOD UREA NITROGEN 9 MG/DL (7-18); CALCIUM LEVEL 8.3 MG/DL (8.5-10.1); CARBON DIOXIDE LEVEL 26 MEQ/L (21-32); CHLORIDE LEVEL 106 MEQ/L (98-107); CREATININE FOR GFR 1.19 MG/DL (0.70-1.30); GLOMERULAR FILTRATION RATE > 60.0 (>56); GLUCOSE, FASTING 108 MG/DL (70-105); NT-PRO BNP 22 PG/ML (<125); POTASSIUM SERUM 3.8 MEQ/L (3.5-5.1); SODIUM LEVEL 142 MEQ/L (136-145); TOTAL PROTEIN 7.2 GM/DL (6.4-8.2)
[2017-06-15] MEDS: LevoFLOXacin IV 750 MG in APPROPRIATE DILUENT 1 EA IV (19:51)
[2017-06-15] MEDS: MORPHINE 2 MG/ML 1ML SYRINGE IV (20:05)
== END 2017-06-15 22:21 | disposition home or self-care (01) ==
LOC: M ED 15:04
DX: J44.0 Chronic obstructive pulmonary disease with (acute) lower respiratory infection (principal); I10 Essential (primary) hypertension; B19.9 Unspecified viral hepatitis without hepatic coma; E78.5 Hyperlipidemia, unspecified; F33.9 Major depressive disorder, recurrent, unspecified; K21.9 Gastro-esophageal reflux disease without esophagitis; F10.11 Alcohol abuse, in remission; F17.210 Nicotine dependence, cigarettes, uncomplicated; Z79.899 Other long term (current) drug therapy; Z88.8 Allergy status to other drugs, medicaments and biological substances; Z87.09 Personal history of other diseases of the respiratory system; Z87.820 Personal history of traumatic brain injury; Z86.39 Personal history of other endocrine, nutritional and metabolic disease; Z98.890 Other specified postprocedural states; Z90.2 Acquired absence of lung [part of]
CPT/HCPCS: J1956

== ENCOUNTER 2017-07-16 20:13 | Inpatient (IN) | payer OTHER ==
[2017-07-16] MEDS: PRAVASTATIN 20 MG TAB PO (21:00)
[2017-07-16] MEDS: traZODone 50 MG TAB PO (21:00)
[2017-07-16] MEDS: dexameTHASONE 20 MG/5 ML VIAL (J1100) IV (21:15)
[2017-07-16] MEDS: IPRATROPIUM 0.5MG/ALBUTEROL 2.5MG INH SOL UD 3ML (DUONEB)(J7620) NEB ×3 (21:22→21:23)
[2017-07-16 23:07] LABS: ABG BASE EXCESS 0.4 (-2.0-2.0); ABG HCO3 23.3 MEQ/L (22.0-26.0); ABG O2 SATURATION 91.9 % (95.0-99.0); ABG PARTIAL PRESSURE CO2 32.4 mmHg (35.0-45.0); ABG PARTIAL PRESSURE O2 59.7 mmHg (75.0-100.0); ABG STANDARD HCO3 24.7 MEQ/L (22.0-26.0); ABG TOTAL CO2 24.3 MEQ/L (22.0-29.0); ABG pH (ARTERIAL) 7.474 UNITS (7.350-7.450)
[2017-07-16 23:23] LABS: BASO # 0.1 10^3/uL (0.0-0.2); BASO % 0.8 % (0.0-1.0); EOS # 0.2 10^3/uL (0.0-0.50); EOS % 2.7 % (0.0-3.0); HEMATOCRIT 38.3 % (42.0-52.0); HEMOGLOBIN 13.1 g/dl (14.0-18.0); IMMATURE GRANULOCYTE # 0.1 10^3/uL (0-0); IMMATURE GRANULOCYTE % 1.6 % (0-0); LYMPH # 1.2 10^3/uL (1.5-4.5); LYMPH % 15.7 % (24.0-44.0); MEAN CORPUSCULAR HEMOGLOBIN 30.8 pg (27.0-33.0); MEAN CORPUSCULAR HGB CONC 34.2 g/dl (32.0-36.5); MEAN CORPUSCULAR VOLUME 90.1 fl (80.0-96.0); MONO # 0.8 10^3/uL (0.0-0.8); MONO % 9.9 % (0.0-5.0); NEUTROPHILS # 5.5 10^3/uL (1.8-7.7); NEUTROPHILS % 69.3 % (36.0-66.0); PLATELET COUNT, AUTOMATED 135 10^3/uL (150-450); RED BLOOD COUNT 4.25 10^6/uL (4.30-6.10); RED CELL DISTRIBUTION WIDTH 13.1 % (11.5-14.5); WHITE BLOOD COUNT 7.9 10^3/uL (4.0-10.0)
[2017-07-16 23:45] LABS: ANION GAP 9 MEQ/L (8-16); BLOOD UREA NITROGEN 20 MG/DL (7-18); CALCIUM LEVEL 8.2 MG/DL (8.5-10.1); CARBON DIOXIDE LEVEL 24 MEQ/L (21-32); CHLORIDE LEVEL 105 MEQ/L (98-107); CREATININE FOR GFR 1.04 MG/DL (0.70-1.30); GLOMERULAR FILTRATION RATE > 60.0 (>56); GLUCOSE, FASTING 88 MG/DL (70-100); NT-PRO BNP 18 PG/ML (<125); POTASSIUM SERUM 4.1 MEQ/L (3.5-5.1); SODIUM LEVEL 138 MEQ/L (136-145)
[2017-07-17] MEDS: IPRATROPIUM 0.5MG/ALBUTEROL 2.5MG INH SOL UD 3ML (DUONEB)(J7620) NEB ×4 (00:29→19:49)
[2017-07-17] MEDS ORDERED: ONDANSETRON 4MG/2ML VIAL (J2405) IV ×2 (01:45→14:30)
[2017-07-17 02:18] LABS: LACTIC ACID SEPSIS PROTOCOL 1.1 MMOL/L (0.4-2.0)
[2017-07-17] MEDS: KETOROLAC 30 MG/ML VIAL (J1885) IV ×3 (03:08→19:57)
[2017-07-17] MEDS: MIRTAZAPINE 15 MG TAB PO ×2 (03:56→20:39)
[2017-07-17] MEDS: methylPREDNISolone INJ 40 MG/1 ML VIAL (J2920) IV ×2 (05:55→18:00)
[2017-07-17] MEDS: BENZONATATE 100 MG CAP PO ×3 (05:55→20:39)
[2017-07-17] MEDS: FIORICET TAB PO ×3 (06:04→20:40)
[2017-07-17] MEDS: ENOXAPARIN 40 MG/0.4 ML SYRINGE (J1650) SC (08:31)
[2017-07-17] MEDS: buPROPion **XL** TABLET 150MG (WELLBUTRIN XL) PO (08:31)
[2017-07-17] MEDS: GABAPENTIN 300 MG CAP PO ×3 (08:31→20:36)
[2017-07-17] MEDS: DOXYCYCLINE HYCLATE 100 MG TAB PO ×2 (08:32→20:40)
[2017-07-17] MEDS: BACLOFEN 10 MG TAB PO ×3 (08:32→20:39)
[2017-07-17] MEDS: TAMSULOSIN 0.4 MG CAP PO (08:33)
[2017-07-17] MEDS: METOPROLOL SUCC (TopROL XL) 50MG **XL** TAB PO ×2 (08:33→20:38)
[2017-07-17] MEDS: QUEtiapine FUMARATE 50 MG TAB PO ×3 (08:33→20:36)
[2017-07-17] MEDS: FAMOTIDINE 20 MG TAB PO ×2 (08:33→18:00)
[2017-07-17] MEDS: SENOKOT S TAB PO ×2 (08:33→20:40)
[2017-07-17] MEDS: FORMOTEROL FUMARATE 20 MCG/2 ML INHALATION SOLUTION (PERFOROMIST) INH ×2 (09:14→19:48)
[2017-07-17] MEDS: BUDESONIDE 0.5 MG/2 ML INHALATION SUSPENSION INH ×2 (09:14→19:48)
[2017-07-17] MEDS: PERCOCET 5MG/325MG TAB PO ×2 (09:53→18:07)
[2017-07-17 13:17] LABS: BEDSIDE GLUCOSE 575 MG/DL (70-105)
[2017-07-17] MEDS ORDERED: HEPARIN SOD (PORCINE) 5000 UNITS/ML VIAL SC (14:00)
[2017-07-17 14:03] LABS: BEDSIDE GLUCOSE CONFIRMATION 576 MG/DL (LESS THAN 200)
[2017-07-17] MEDS ORDERED: GLUCOSE 4 GM CHEW TABLET PO (14:15)
[2017-07-17] MEDS ORDERED: GLUCAGON FOR INJ 1 MG VIAL (J1610) SC (14:15)
[2017-07-17] MEDS ORDERED: DEXTROSE 50% 50 ML SYRINGE IV (14:15)
[2017-07-17] MEDS ORDERED: ACETAMINOPHEN TAB 650MG DOSE (2X325MG) PO (14:30)
[2017-07-17] MEDS: HumaLOG INSULIN (NovoLOG) PER UNIT SC ×3 (14:42→20:36)
[2017-07-17 14:54] LABS: BASO % 0.1 % (0.0-1.0); HEMATOCRIT 34.4 % (42.0-52.0); HEMOGLOBIN 11.8 g/dl (14.0-18.0); IMMATURE GRANULOCYTE # 0.1 10^3/uL (0-0); IMMATURE GRANULOCYTE % 0.7 % (0-0); LYMPH # 0.7 10^3/uL (1.5-4.5); LYMPH % 5.1 % (24.0-44.0); MEAN CORPUSCULAR HEMOGLOBIN 31.1 pg (27.0-33.0); MEAN CORPUSCULAR HGB CONC 34.3 g/dl (32.0-36.5); MEAN CORPUSCULAR VOLUME 90.5 fl (80.0-96.0); MONO # 0.6 10^3/uL (0.0-0.8); MONO % 4.9 % (0.0-5.0); NEUTROPHILS # 11.7 10^3/uL (1.8-7.7); NEUTROPHILS % 89.2 % (36.0-66.0); PLATELET COUNT, AUTOMATED 132 10^3/uL (150-450); RED CELL DISTRIBUTION WIDTH 13.1 % (11.5-14.5); WHITE BLOOD COUNT 13.1 10^3/uL (4.0-10.0)
[2017-07-17 15:07] LABS: INR 1.06; PARTIAL THROMBOPLASTIN TIME 29.8 SECONDS (26.8-37.9); PROTHROMBIN TIME 13.9 SECONDS (12.4-14.5)
[2017-07-17 15:16] LABS: ANION GAP 11 MEQ/L (8-16); BLOOD UREA NITROGEN 22 MG/DL (7-18); CARBON DIOXIDE LEVEL 21 MEQ/L (21-32); CHLORIDE LEVEL 101 MEQ/L (98-107); CREATININE FOR GFR 1.52 MG/DL (0.70-1.30); GLOMERULAR FILTRATION RATE 51.9 (>56); POTASSIUM SERUM 4.3 MEQ/L (3.5-5.1); SODIUM LEVEL 133 MEQ/L (136-145)
[2017-07-17 15:20] LABS: CK-MB VALUE MASS 1.3 NG/ML (0.0-3.6); CPK CREATINE PHOSPHOKINASE 81 U/L (39-308); TROPONIN I < 0.02 NG/ML (< 0.10)
[2017-07-17 15:26] LABS: GLUCOSE, FASTING 502 MG/DL (70-100)
[2017-07-17 15:38] LABS: ESTIMATED AVERAGE GLUCOSE 126 MG/DL (60-110)
[2017-07-17 17:07] LABS: BEDSIDE GLUCOSE 346 MG/DL (70-105)
[2017-07-17 20:20] LABS: BEDSIDE GLUCOSE 360 MG/DL (70-105)
[2017-07-17] MEDS: LEVEMIR (INSULIN DETEMIR) 1 UNITS/0.01ML SC (20:35)
[2017-07-17] MEDS: PRAZOSIN 1 MG CAP PO (20:37)
[2017-07-17] MEDS: traZODone 50 MG TAB PO (20:38)
[2017-07-17] MEDS: PRAVASTATIN 20 MG TAB PO (20:38)
[2017-07-17] MEDS: DOCUSATE SODIUM 100 MG CAP PO (20:39)
[2017-07-17] MEDS ORDERED: PREGABALIN 50 MG CAP (LYRICA) PO (21:00)
[2017-07-17 21:02] LABS: CK-MB VALUE MASS 1.8 NG/ML (0.0-3.6); CPK CREATINE PHOSPHOKINASE 92 U/L (39-308); MB/CK RELATIVE INDEX 1.95 (< OR =4); TROPONIN I < 0.02 NG/ML (< 0.10)
[2017-07-17 21:45] LABS: BEDSIDE GLUCOSE 505 MG/DL (70-105)
[2017-07-17] MEDS ORDERED: NS 500 ML IV (22:30)
[2017-07-17] MEDS ORDERED: MORPHINE 2 MG/ML 1ML SYRINGE IV (22:30)
[2017-07-17] MEDS ORDERED: NS 1,000 ML IV (22:45)
[2017-07-18] MEDS: PREGABALIN 50 MG CAP (LYRICA) PO (01:54)
[2017-07-18] MEDS: PERCOCET 5MG/325MG TAB PO (01:59)
[2017-07-18] MEDS: IPRATROPIUM 0.5MG/ALBUTEROL 2.5MG INH SOL UD 3ML (DUONEB)(J7620) NEB ×5 (02:00→20:00)
[2017-07-18 02:44] LABS: INFLUENZA A AMPLIFICATION NEGATIVE (NEGATIVE); INFLUENZA B AMPLIFICATION NEGATIVE (NEGATIVE); RSV AMPLIFICATION NEGATIVE (NEGATIVE)
[2017-07-18 04:32] LABS: KETONE, URINE AUTO RFX NEGATIVE (NEGATIVE); LEUKOCYTE ESTERASE UR AUTO RFX NEGATIVE (NEGATIVE); NITRITE, URINE AUTO RFX NEGATIVE (NEGATIVE); RBC, URINE AUTO RFX 0 /HPF (0-3); SPECIFIC GRAVITY UR AUTO RFX 1.032 (1.002-1.035); SQUAM EPITHELIAL CELL UR AURFX 0 /HPF (0-6); WBC, URINE AUTO RFX 0 /HPF (0-3)
[2017-07-18] MEDS: NS 500 ML IV (04:33)
[2017-07-18 04:50] LABS: CREATININE,RANDOM URINE 97.6 MG/DL
[2017-07-18 04:50] LABS: SODIUM,RANDOM URINE 20 MEQ/L
[2017-07-18] MEDS: HEPARIN SOD (PORCINE) 5000 UNITS/ML VIAL SC (05:54)
[2017-07-18] MEDS: methylPREDNISolone INJ 40 MG/1 ML VIAL (J2920) IV (05:54)
[2017-07-18] MEDS: BENZONATATE 100 MG CAP PO ×3 (05:54→21:22)
[2017-07-18] MEDS: FIORICET TAB PO ×3 (05:55→21:23)
[2017-07-18] MEDS: NS 1,000 ML IV ×3 (06:00→21:24)
[2017-07-18] MEDS: BUDESONIDE 0.5 MG/2 ML INHALATION SUSPENSION INH ×2 (06:54→21:01)
[2017-07-18] MEDS: FORMOTEROL FUMARATE 20 MCG/2 ML INHALATION SOLUTION (PERFOROMIST) INH ×2 (06:54→21:01)
[2017-07-18 06:55] LABS: BASO % 0.1 % (0.0-1.0); HEMOGLOBIN 11.7 g/dl (14.0-18.0); IMMATURE GRANULOCYTE # 0.2 10^3/uL (0-0); IMMATURE GRANULOCYTE % 1.3 % (0-0); LYMPH # 1.2 10^3/uL (1.5-4.5); LYMPH % 8.3 % (24.0-44.0); MEAN CORPUSCULAR HEMOGLOBIN 31.4 pg (27.0-33.0); MEAN CORPUSCULAR HGB CONC 34.4 g/dl (32.0-36.5); MEAN CORPUSCULAR VOLUME 91.2 fl (80.0-96.0); MONO # 1.3 10^3/uL (0.0-0.8); MONO % 9.3 % (0.0-5.0); NEUTROPHILS # 11.4 10^3/uL (1.8-7.7); PLATELET COUNT, AUTOMATED 134 10^3/uL (150-450); RED BLOOD COUNT 3.73 10^6/uL (4.30-6.10); RED CELL DISTRIBUTION WIDTH 13.4 % (11.5-14.5); WHITE BLOOD COUNT 14.1 10^3/uL (4.0-10.0)
[2017-07-18 07:04] LABS: INR 0.93; PROTHROMBIN TIME 12.5 SECONDS (12.4-14.5)
[2017-07-18 07:05] LABS: PARTIAL THROMBOPLASTIN TIME 29.2 SECONDS (26.8-37.9)
[2017-07-18 07:08] LABS: ANION GAP 8 MEQ/L (8-16); BLOOD UREA NITROGEN 21 MG/DL (7-18); CALCIUM LEVEL 7.9 MG/DL (8.5-10.1); CARBON DIOXIDE LEVEL 24 MEQ/L (21-32); CHLORIDE LEVEL 108 MEQ/L (98-107); CREATININE FOR GFR 1.09 MG/DL (0.70-1.30); GLOMERULAR FILTRATION RATE > 60.0 (>56); GLUCOSE, FASTING 259 MG/DL (70-100); POTASSIUM SERUM 4.2 MEQ/L (3.5-5.1); SODIUM LEVEL 140 MEQ/L (136-145)
[2017-07-18 07:19] LABS: LACTIC ACID SEPSIS PROTOCOL 3.5 MMOL/L (0.4-2.0)
[2017-07-18 07:26] LABS: ALBUMIN 3.5 GM/DL (3.2-5.2); ALKALINE PHOSPHATASE 57 U/L (45-117); ALT/SGPT 20 U/L (12-78); AST/SGOT 12 U/L (7-37); BILIRUBIN,DIRECT < 0.1 MG/DL (0.0-0.2); BILIRUBIN,TOTAL 0.2 MG/DL (0.2-1.0); C REACTIVE PROTEIN QUANTITATIV 1.99 MG/DL (0.00-0.30); LIPASE 102 U/L (73-393); NT-PRO BNP 262 PG/ML (<125); THYROID STIMULATING HORMONE 0.613 uIU/ML (0.358-3.740); TOTAL PROTEIN 6.2 GM/DL (6.4-8.2)
[2017-07-18] MEDS: HumaLOG INSULIN (NovoLOG) PER UNIT SC ×4 (07:58→21:00)
[2017-07-18] MEDS: MORPHINE 2 MG/ML 1ML SYRINGE IV ×4 (07:59→21:16)
[2017-07-18] MEDS: DOCUSATE SODIUM 100 MG CAP PO ×2 (09:00→21:20)
[2017-07-18] MEDS: SENOKOT S TAB PO (09:00)
[2017-07-18] MEDS: BACLOFEN 10 MG TAB PO ×3 (09:15→21:22)
[2017-07-18] MEDS: LEVEMIR (INSULIN DETEMIR) 1 UNITS/0.01ML SC ×2 (09:15→21:17)
[2017-07-18] MEDS: DOXYCYCLINE HYCLATE 100 MG TAB PO ×2 (09:16→21:21)
[2017-07-18] MEDS: QUEtiapine FUMARATE 50 MG TAB PO ×3 (09:16→21:20)
[2017-07-18] MEDS: METOPROLOL SUCC (TopROL XL) 50MG **XL** TAB PO ×2 (09:16→21:23)
[2017-07-18] MEDS: GABAPENTIN 300 MG CAP PO ×3 (09:16→21:21)
[2017-07-18] MEDS: buPROPion **XL** TABLET 150MG (WELLBUTRIN XL) PO (09:16)
[2017-07-18] MEDS: LIDOCAINE 5% (LIDODERM) PATCH TD (09:17)
[2017-07-18] MEDS: traMADol 50 MG TAB PO (09:17)
[2017-07-18] MEDS: DUTASTERIDE 0.5 MG CAP (AVODART) PO (10:34)
[2017-07-18] MEDS: DEXTROMETHORPHAN 60MG/10ML SUSP 90ML BTL(DELSYM) PO (11:57)
[2017-07-18 12:07] LABS: BEDSIDE GLUCOSE 272 MG/DL (70-105)
[2017-07-18 12:20] LABS: ABG BASE EXCESS -2.8 (-2.0-2.0); ABG HCO3 21.1 MEQ/L (22.0-26.0); ABG O2 SATURATION 95.4 % (95.0-99.0); ABG PARTIAL PRESSURE CO2 33.8 mmHg (35.0-45.0); ABG PARTIAL PRESSURE O2 79.3 mmHg (75.0-100.0); ABG STANDARD HCO3 22.1 MEQ/L (22.0-26.0); ABG TOTAL CO2 22.1 MEQ/L (22.0-29.0); ABG pH (ARTERIAL) 7.413 UNITS (7.350-7.450)
[2017-07-18 12:54] LABS: D-DIMER QUANT 376.3 ng/ml (<500)
[2017-07-18] MEDS: methylPREDNISolone INJ 125 MG/2 ML VIAL (J2930) IV ×2 (14:14→21:16)
[2017-07-18] MEDS: **NOTE PATIENT COMMENT** MISC XX (14:28)
[2017-07-18] MEDS: ALBUTEROL SULFATE 2.5 MG/0.5 ML INH NEB SOLN NEB (15:23)
[2017-07-18] MEDS: FAMOTIDINE 20 MG TAB PO (17:31)
[2017-07-18 17:46] LABS: BEDSIDE GLUCOSE 243 MG/DL (70-105)
[2017-07-18] MEDS: CYCLOBENZAPRINE 5MG TABLET PO (19:01)
[2017-07-18] MEDS: traZODone 50 MG TAB PO (21:18)
[2017-07-18] MEDS: MIRTAZAPINE 15 MG TAB PO (21:18)
[2017-07-18 21:19] LABS: BEDSIDE GLUCOSE 165 MG/DL (70-105)
[2017-07-18] MEDS: PRAZOSIN 1 MG CAP PO (21:19)
[2017-07-18] MEDS: PRAVASTATIN 20 MG TAB PO (21:21)
[2017-07-18] MEDS: LIDOCAINE 4% CREAM 5GM (LMX4) TOP (21:24)
[2017-07-19] MEDS: DEXTROMETHORPHAN 60MG/10ML SUSP 90ML BTL(DELSYM) PO ×2 (00:55→12:43)
[2017-07-19] MEDS: CYCLOBENZAPRINE 5MG TABLET PO ×5 (00:55→23:46)
[2017-07-19] MEDS: MORPHINE 2 MG/ML 1ML SYRINGE IV ×5 (00:56→22:14)
[2017-07-19] MEDS: LIDOCAINE 4% CREAM 5GM (LMX4) TOP ×7 (00:58→23:46)
[2017-07-19] MEDS: IPRATROPIUM 0.5MG/ALBUTEROL 2.5MG INH SOL UD 3ML (DUONEB)(J7620) NEB ×4 (01:16→21:02)
[2017-07-19] MEDS: BENZONATATE 100 MG CAP PO ×3 (06:11→20:45)
[2017-07-19] MEDS: FIORICET TAB PO ×3 (06:12→20:45)
[2017-07-19] MEDS: methylPREDNISolone INJ 125 MG/2 ML VIAL (J2930) IV ×2 (06:12→17:23)
[2017-07-19] MEDS: NS 1,000 ML IV (06:13)
[2017-07-19 06:43] LABS: BASO % 0.2 % (0.0-1.0); HEMATOCRIT 35.2 % (42.0-52.0); HEMOGLOBIN 11.8 g/dl (14.0-18.0); IMMATURE GRANULOCYTE # 0.4 10^3/uL (0-0); LYMPH % 8.1 % (24.0-44.0); MEAN CORPUSCULAR HEMOGLOBIN 30.7 pg (27.0-33.0); MEAN CORPUSCULAR HGB CONC 33.5 g/dl (32.0-36.5); MEAN CORPUSCULAR VOLUME 91.7 fl (80.0-96.0); MONO # 0.9 10^3/uL (0.0-0.8); MONO % 7.3 % (0.0-5.0); NEUTROPHILS # 9.6 10^3/uL (1.8-7.7); NEUTROPHILS % 81.4 % (36.0-66.0); PLATELET COUNT, AUTOMATED 127 10^3/uL (150-450); RED BLOOD COUNT 3.84 10^6/uL (4.30-6.10); RED CELL DISTRIBUTION WIDTH 13.7 % (11.5-14.5); WHITE BLOOD COUNT 11.8 10^3/uL (4.0-10.0)
[2017-07-19 07:06] LABS: ANION GAP 6 MEQ/L (8-16); BLOOD UREA NITROGEN 12 MG/DL (7-18); CALCIUM LEVEL 7.9 MG/DL (8.5-10.1); CARBON DIOXIDE LEVEL 27 MEQ/L (21-32); CHLORIDE LEVEL 110 MEQ/L (98-107); CREATININE FOR GFR 0.95 MG/DL (0.70-1.30); GLOMERULAR FILTRATION RATE > 60.0 (>56); GLUCOSE, FASTING 252 MG/DL (70-100); POTASSIUM SERUM 4.9 MEQ/L (3.5-5.1); SODIUM LEVEL 143 MEQ/L (136-145)
[2017-07-19] MEDS: FORMOTEROL FUMARATE 20 MCG/2 ML INHALATION SOLUTION (PERFOROMIST) INH (07:09)
[2017-07-19] MEDS: BUDESONIDE 0.5 MG/2 ML INHALATION SUSPENSION INH (07:09)
[2017-07-19] MEDS: ADVAIR HFA 230/21MCG INHALER INH ×2 (08:00→20:00)
[2017-07-19] MEDS: LEVEMIR (INSULIN DETEMIR) 1 UNITS/0.01ML SC ×2 (08:23→20:43)
[2017-07-19] MEDS: buPROPion **XL** TABLET 150MG (WELLBUTRIN XL) PO (08:24)
[2017-07-19] MEDS: GABAPENTIN 300 MG CAP PO ×3 (08:24→20:46)
[2017-07-19] MEDS: HumaLOG INSULIN (NovoLOG) PER UNIT SC ×4 (08:24→20:48)
[2017-07-19] MEDS: DOXYCYCLINE HYCLATE 100 MG TAB PO ×2 (08:24→20:47)
[2017-07-19] MEDS: BACLOFEN 10 MG TAB PO ×3 (08:24→20:46)
[2017-07-19] MEDS: DOCUSATE SODIUM 100 MG CAP PO ×2 (08:24→20:50)
[2017-07-19] MEDS: QUEtiapine FUMARATE 50 MG TAB PO ×3 (08:25→20:46)
[2017-07-19] MEDS: METOPROLOL SUCC (TopROL XL) 50MG **XL** TAB PO ×2 (08:25→20:47)
[2017-07-19] MEDS: DUTASTERIDE 0.5 MG CAP (AVODART) PO (08:25)
[2017-07-19 12:52] LABS: BEDSIDE GLUCOSE 294 MG/DL (70-105)
[2017-07-19] MEDS: traMADol 50 MG TAB PO ×2 (14:22→20:47)
[2017-07-19] MEDS: FAMOTIDINE 20 MG TAB PO (16:24)
[2017-07-19] MEDS: VOLTAREN 1% TOP ×2 (16:25→20:42)
[2017-07-19 17:11] LABS: BEDSIDE GLUCOSE 193 MG/DL (70-105)
[2017-07-19] MEDS: FLUTICASONE PROP 0.05% NASAL SPRAY 16 GM (FLONASE) (20:38)
[2017-07-19] MEDS: AZELASTINE 137MCG NASAL SPY 30 ML (ASTELIN) (20:40)
[2017-07-19] MEDS: PRAZOSIN 1 MG CAP PO (20:44)
[2017-07-19] MEDS: MIRTAZAPINE 15 MG TAB PO (20:46)
[2017-07-19] MEDS: traZODone 50 MG TAB PO (20:46)
[2017-07-19] MEDS: PRAVASTATIN 20 MG TAB PO (20:48)
[2017-07-20] MEDS: IPRATROPIUM 0.5MG/ALBUTEROL 2.5MG INH SOL UD 3ML (DUONEB)(J7620) NEB ×4 (02:00→20:00)
[2017-07-20 03:24] LABS: BEDSIDE GLUCOSE 123 MG/DL (70-105)
[2017-07-20] MEDS: LIDOCAINE 4% CREAM 5GM (LMX4) TOP ×5 (03:24→21:00)
[2017-07-20] MEDS: methylPREDNISolone INJ 125 MG/2 ML VIAL (J2930) IV ×3 (04:53→21:00)
[2017-07-20] MEDS: BENZONATATE 100 MG CAP PO ×3 (04:54→21:02)
[2017-07-20] MEDS: CYCLOBENZAPRINE 5MG TABLET PO ×3 (04:54→17:11)
[2017-07-20] MEDS: DEXTROMETHORPHAN 60MG/10ML SUSP 90ML BTL(DELSYM) PO ×2 (04:55→17:12)
[2017-07-20] MEDS: ALBUTEROL SULFATE 2.5 MG/0.5 ML INH NEB SOLN NEB ×3 (05:29→15:30)
[2017-07-20 06:51] LABS: BASO % 0.2 % (0.0-1.0); EOS % 0.1 % (0.0-3.0); HEMATOCRIT 35.4 % (42.0-52.0); HEMOGLOBIN 12.1 g/dl (14.0-18.0); IMMATURE GRANULOCYTE # 0.5 10^3/uL (0-0); IMMATURE GRANULOCYTE % 4.3 % (0-0); LYMPH # 1.4 10^3/uL (1.5-4.5); LYMPH % 11.5 % (24.0-44.0); MEAN CORPUSCULAR HGB CONC 34.2 g/dl (32.0-36.5); MEAN CORPUSCULAR VOLUME 90.8 fl (80.0-96.0); MONO # 1.4 10^3/uL (0.0-0.8); NEUTROPHILS # 9.1 10^3/uL (1.8-7.7); NEUTROPHILS % 72.9 % (36.0-66.0); PLATELET COUNT, AUTOMATED 133 10^3/uL (150-450); RED CELL DISTRIBUTION WIDTH 13.5 % (11.5-14.5); WHITE BLOOD COUNT 12.4 10^3/uL (4.0-10.0)
[2017-07-20 07:18] LABS: ANION GAP 7 MEQ/L (8-16); BLOOD UREA NITROGEN 16 MG/DL (7-18); CARBON DIOXIDE LEVEL 27 MEQ/L (21-32); CHLORIDE LEVEL 107 MEQ/L (98-107); CREATININE FOR GFR 0.79 MG/DL (0.70-1.30); GLOMERULAR FILTRATION RATE > 60.0 (>56); GLUCOSE, FASTING 132 MG/DL (70-100); SODIUM LEVEL 141 MEQ/L (136-145)
[2017-07-20] MEDS: ADVAIR HFA 230/21MCG INHALER INH ×2 (08:21→21:19)
[2017-07-20] MEDS: QUEtiapine FUMARATE 50 MG TAB PO ×3 (08:27→21:03)
[2017-07-20] MEDS: METOPROLOL SUCC (TopROL XL) 50MG **XL** TAB PO ×2 (08:27→21:04)
[2017-07-20] MEDS: DOCUSATE SODIUM 100 MG CAP PO ×2 (08:28→21:04)
[2017-07-20] MEDS: GABAPENTIN 300 MG CAP PO ×3 (08:28→21:03)
[2017-07-20] MEDS: buPROPion **XL** TABLET 150MG (WELLBUTRIN XL) PO (08:28)
[2017-07-20] MEDS: BACLOFEN 10 MG TAB PO ×3 (08:28→21:03)
[2017-07-20] MEDS: FIORICET TAB PO (08:28)
[2017-07-20] MEDS: LEVEMIR (INSULIN DETEMIR) 1 UNITS/0.01ML SC ×2 (08:29→21:01)
[2017-07-20] MEDS: DUTASTERIDE 0.5 MG CAP (AVODART) PO (08:29)
[2017-07-20] MEDS: CEFTRIAXONE SOD 2 GM in APPROPRIATE DILUENT 1 EA IV (08:29)
[2017-07-20] MEDS: HumaLOG INSULIN (NovoLOG) PER UNIT SC ×4 (08:30→21:00)
[2017-07-20] MEDS: VOLTAREN 1% TOP ×2 (08:30→21:00)
[2017-07-20] MEDS: FLUTICASONE PROP 0.05% NASAL SPRAY 16 GM (FLONASE) ×2 (08:31→20:59)
[2017-07-20] MEDS: AZELASTINE 137MCG NASAL SPY 30 ML (ASTELIN) ×2 (08:31→20:59)
[2017-07-20] MEDS: DOXYCYCLINE HYCLATE 100 MG TAB PO (09:00)
[2017-07-20 11:01] LABS: C REACTIVE PROTEIN QUANTITATIV 0.73 MG/DL (0.00-0.30)
[2017-07-20] MEDS: MORPHINE 2 MG/ML 1ML SYRINGE IV ×4 (11:49→21:02)
[2017-07-20] MEDS: CHLORASEPTIC SPRAY MT ×2 (15:05→21:05)
[2017-07-20] MEDS: FAMOTIDINE 20 MG TAB PO (17:11)
[2017-07-20 18:44] LABS: BEDSIDE GLUCOSE 124 MG/DL (70-105)
[2017-07-20] MEDS: traMADol 50 MG TAB PO (19:55)
[2017-07-20 20:05] LABS: BEDSIDE GLUCOSE 170 MG/DL (70-105)
[2017-07-20] MEDS: MIRTAZAPINE 15 MG TAB PO (21:02)
[2017-07-20] MEDS: PRAZOSIN 1 MG CAP PO (21:03)
[2017-07-20] MEDS: PRAVASTATIN 20 MG TAB PO (21:04)
[2017-07-20] MEDS: traZODone 50 MG TAB PO (21:04)
[2017-07-21] MEDS: CYCLOBENZAPRINE 5MG TABLET PO ×5 (00:13→23:44)
[2017-07-21] MEDS: LIDOCAINE 4% CREAM 5GM (LMX4) TOP ×7 (00:14→23:45)
[2017-07-21] MEDS: IPRATROPIUM 0.5MG/ALBUTEROL 2.5MG INH SOL UD 3ML (DUONEB)(J7620) NEB ×4 (01:31→20:00)
[2017-07-21] MEDS: MORPHINE 2 MG/ML 1ML SYRINGE IV ×6 (02:41→21:25)
[2017-07-21] MEDS: methylPREDNISolone INJ 125 MG/2 ML VIAL (J2930) IV ×3 (05:57→21:25)
[2017-07-21] MEDS: DEXTROMETHORPHAN 60MG/10ML SUSP 90ML BTL(DELSYM) PO (06:00)
[2017-07-21] MEDS: BENZONATATE 100 MG CAP PO ×3 (06:00→21:27)
[2017-07-21] MEDS: HumaLOG INSULIN (NovoLOG) PER UNIT SC ×4 (07:30→21:00)
[2017-07-21] MEDS: ADVAIR HFA 230/21MCG INHALER INH ×2 (07:53→20:00)
[2017-07-21] MEDS: ALBUTEROL SULFATE 2.5 MG/0.5 ML INH NEB SOLN NEB ×2 (07:54→17:52)
[2017-07-21 07:56] LABS: HEMATOCRIT 34.6 % (42.0-52.0); HEMOGLOBIN 11.7 g/dl (14.0-18.0); MEAN CORPUSCULAR HGB CONC 33.8 g/dl (32.0-36.5); MEAN CORPUSCULAR VOLUME 91.8 fl (80.0-96.0); PLATELET COUNT, AUTOMATED 141 10^3/uL (150-450); RED BLOOD COUNT 3.77 10^6/uL (4.30-6.10); RED CELL DISTRIBUTION WIDTH 13.6 % (11.5-14.5); WHITE BLOOD COUNT 15.3 10^3/uL (4.0-10.0)
[2017-07-21 08:05] LABS: ADD MANUAL DIFFER YES; DIFF SLIDE NUMBER 28; POS COUNT POS FLAG; POSITIVE MORPH POS FLAG
[2017-07-21 08:39] LABS: BANDS 3 % (< 11); LYMPHOCYTES 7 % (16-52); MONOCYTES 7 % (0-8); MYELOCYTES 3 % (0-0); NEUTROPHILS 80 % (35-75)
[2017-07-21 08:40] LABS: PLATELET CLUMPS SMALL AMT; PLATELET ESTIMATE NORMAL (NORMAL)
[2017-07-21 08:46] LABS: ANION GAP 7 MEQ/L (8-16); BLOOD UREA NITROGEN 19 MG/DL (7-18); C REACTIVE PROTEIN QUANTITATIV 0.74 MG/DL (0.00-0.30); CALCIUM LEVEL 8.5 MG/DL (8.5-10.1); CARBON DIOXIDE LEVEL 26 MEQ/L (21-32); CHLORIDE LEVEL 107 MEQ/L (98-107); CREATININE FOR GFR 0.88 MG/DL (0.70-1.30); GLOMERULAR FILTRATION RATE > 60.0 (>56); GLUCOSE, FASTING 204 MG/DL (70-100); POTASSIUM SERUM 4.2 MEQ/L (3.5-5.1); SODIUM LEVEL 140 MEQ/L (136-145)
[2017-07-21] MEDS: LEVEMIR (INSULIN DETEMIR) 1 UNITS/0.01ML SC ×2 (09:00→21:24)
[2017-07-21] MEDS: GABAPENTIN 300 MG CAP PO ×3 (09:01→21:28)
[2017-07-21] MEDS: DOCUSATE SODIUM 100 MG CAP PO ×2 (09:01→21:27)
[2017-07-21] MEDS: DUTASTERIDE 0.5 MG CAP (AVODART) PO (09:01)
[2017-07-21] MEDS: buPROPion **XL** TABLET 150MG (WELLBUTRIN XL) PO (09:02)
[2017-07-21] MEDS: METOPROLOL SUCC (TopROL XL) 50MG **XL** TAB PO ×2 (09:02→21:28)
[2017-07-21] MEDS: QUEtiapine FUMARATE 50 MG TAB PO ×3 (09:02→21:27)
[2017-07-21] MEDS: BACLOFEN 10 MG TAB PO ×3 (09:02→21:26)
[2017-07-21] MEDS: AZELASTINE 137MCG NASAL SPY 30 ML (ASTELIN) ×2 (09:03→21:30)
[2017-07-21] MEDS: CEFTRIAXONE SOD 2 GM in APPROPRIATE DILUENT 1 EA IV (09:03)
[2017-07-21] MEDS: FLUTICASONE PROP 0.05% NASAL SPRAY 16 GM (FLONASE) ×2 (09:03→21:29)
[2017-07-21 11:36] LABS: BEDSIDE GLUCOSE 306 MG/DL (70-105)
[2017-07-21] MEDS: TIOTROPIUM INHALER/CAPSULE (SPIRIVA) INH (13:31)
[2017-07-21] MEDS: traMADol 50 MG TAB PO (14:17)
[2017-07-21] MEDS: FAMOTIDINE 20 MG TAB PO (16:02)
[2017-07-21 17:23] LABS: BEDSIDE GLUCOSE 260 MG/DL (70-105)
[2017-07-21 20:03] LABS: BEDSIDE GLUCOSE 268 MG/DL (70-105)
[2017-07-21] MEDS: PRAZOSIN 1 MG CAP PO (21:26)
[2017-07-21] MEDS: MIRTAZAPINE 15 MG TAB PO (21:27)
[2017-07-21] MEDS: PRAVASTATIN 20 MG TAB PO (21:28)
[2017-07-21] MEDS: traZODone 50 MG TAB PO (21:34)
[2017-07-22] MEDS: MORPHINE 2 MG/ML 1ML SYRINGE IV ×7 (00:39→22:52)
[2017-07-22] MEDS: IPRATROPIUM 0.5MG/ALBUTEROL 2.5MG INH SOL UD 3ML (DUONEB)(J7620) NEB ×4 (00:47→20:00)
[2017-07-22] MEDS: LIDOCAINE 4% CREAM 5GM (LMX4) TOP ×6 (05:54→23:36)
[2017-07-22] MEDS: CYCLOBENZAPRINE 5MG TABLET PO ×4 (05:54→23:36)
[2017-07-22] MEDS: BENZONATATE 100 MG CAP PO ×3 (05:54→21:41)
[2017-07-22] MEDS: methylPREDNISolone INJ 125 MG/2 ML VIAL (J2930) IV ×3 (05:54→21:45)
[2017-07-22] MEDS: DEXTROMETHORPHAN 60MG/10ML SUSP 90ML BTL(DELSYM) PO ×2 (05:55→21:46)
[2017-07-22 06:39] LABS: HEMATOCRIT 36.5 % (42.0-52.0); HEMOGLOBIN 12.5 g/dl (14.0-18.0); MEAN CORPUSCULAR HEMOGLOBIN 31.1 pg (27.0-33.0); MEAN CORPUSCULAR HGB CONC 34.2 g/dl (32.0-36.5); MEAN CORPUSCULAR VOLUME 90.8 fl (80.0-96.0); PLATELET COUNT, AUTOMATED 158 10^3/uL (150-450); RED BLOOD COUNT 4.02 10^6/uL (4.30-6.10); RED CELL DISTRIBUTION WIDTH 13.4 % (11.5-14.5)
[2017-07-22 06:43] LABS: ADD MANUAL DIFFER YES; DIFF SLIDE NUMBER 16; POS COUNT POS FLAG; POSITIVE MORPH POS FLAG
[2017-07-22 06:52] LABS: ANION GAP 8 MEQ/L (8-16); BLOOD UREA NITROGEN 20 MG/DL (7-18); C REACTIVE PROTEIN QUANTITATIV 0.49 MG/DL (0.00-0.30); CALCIUM LEVEL 8.1 MG/DL (8.5-10.1); CARBON DIOXIDE LEVEL 27 MEQ/L (21-32); CHLORIDE LEVEL 103 MEQ/L (98-107); CREATININE FOR GFR 1.01 MG/DL (0.70-1.30); GLOMERULAR FILTRATION RATE > 60.0 (>56); GLUCOSE, FASTING 260 MG/DL (70-100); POTASSIUM SERUM 4.3 MEQ/L (3.5-5.1); SODIUM LEVEL 138 MEQ/L (136-145)
[2017-07-22] MEDS: ADVAIR HFA 230/21MCG INHALER INH ×2 (07:16→20:32)
[2017-07-22] MEDS: TIOTROPIUM INHALER/CAPSULE (SPIRIVA) INH (07:18)
[2017-07-22 07:23] LABS: ATYPICAL LYMPH 3 % (0-5); BANDS 1 % (< 11); LYMPHOCYTES 7 % (16-52); METAMYELOCYTES 1 % (0-0); MONOCYTES 5 % (0-8); MYELOCYTES 3 % (0-0); NEUTROPHILS 80 % (35-75); PLATELET ESTIMATE NORMAL (NORMAL)
[2017-07-22 07:24] LABS: ANISOCYTOSIS 1+; POLYCHROMASIA 1+
[2017-07-22 08:06] LABS: ALPHA 1 ANTITRYPSIN 145 mg/dL (90-200)
[2017-07-22] MEDS: HumaLOG INSULIN (NovoLOG) PER UNIT SC ×4 (08:13→21:45)
[2017-07-22] MEDS: CEFTRIAXONE SOD 2 GM in APPROPRIATE DILUENT 1 EA IV (08:13)
[2017-07-22] MEDS: LEVEMIR (INSULIN DETEMIR) 1 UNITS/0.01ML SC ×2 (08:14→21:44)
[2017-07-22] MEDS: METOPROLOL SUCC (TopROL XL) 50MG **XL** TAB PO ×2 (08:15→21:44)
[2017-07-22] MEDS: DOCUSATE SODIUM 100 MG CAP PO ×2 (08:15→21:42)
[2017-07-22] MEDS: BACLOFEN 10 MG TAB PO ×3 (08:15→21:42)
[2017-07-22] MEDS: GABAPENTIN 300 MG CAP PO ×3 (08:16→21:43)
[2017-07-22] MEDS: AZELASTINE 137MCG NASAL SPY 30 ML (ASTELIN) ×2 (08:16→21:40)
[2017-07-22] MEDS: DUTASTERIDE 0.5 MG CAP (AVODART) PO (08:16)
[2017-07-22] MEDS: QUEtiapine FUMARATE 50 MG TAB PO ×3 (08:16→21:42)
[2017-07-22] MEDS: FLUTICASONE PROP 0.05% NASAL SPRAY 16 GM (FLONASE) ×2 (08:16→21:40)
[2017-07-22] MEDS: buPROPion **XL** TABLET 150MG (WELLBUTRIN XL) PO (08:16)
[2017-07-22 12:13] LABS: BEDSIDE GLUCOSE 276 MG/DL (70-105)
[2017-07-22 12:13] LABS: BEDSIDE GLUCOSE 247 MG/DL (70-105)
[2017-07-22 14:16] LABS: GAD-65 AUTOANTIBODY <5.0 U/mL (0.0-5.0)
[2017-07-22] MEDS: FAMOTIDINE 20 MG TAB PO (17:07)
[2017-07-22 17:39] LABS: BEDSIDE GLUCOSE 297 MG/DL (70-105)
[2017-07-22 20:53] LABS: BEDSIDE GLUCOSE 297 MG/DL (70-105)
[2017-07-22] MEDS: MIRTAZAPINE 15 MG TAB PO (21:41)
[2017-07-22] MEDS: traZODone 50 MG TAB PO (21:42)
[2017-07-22] MEDS: PRAZOSIN 1 MG CAP PO (21:43)
[2017-07-22] MEDS: PRAVASTATIN 20 MG TAB PO (21:43)
[2017-07-23] MEDS: ALBUTEROL SULFATE 2.5 MG/0.5 ML INH NEB SOLN NEB ×2 (00:35→05:56)
[2017-07-23] MEDS: IPRATROPIUM 0.5MG/ALBUTEROL 2.5MG INH SOL UD 3ML (DUONEB)(J7620) NEB ×4 (00:36→20:27)
[2017-07-23] MEDS: LIDOCAINE 4% CREAM 5GM (LMX4) TOP ×5 (04:00→21:06)
[2017-07-23] MEDS: CYCLOBENZAPRINE 5MG TABLET PO ×3 (05:27→17:22)
[2017-07-23] MEDS: methylPREDNISolone INJ 125 MG/2 ML VIAL (J2930) IV ×2 (05:27→15:32)
[2017-07-23] MEDS: BENZONATATE 100 MG CAP PO ×3 (05:27→21:06)
[2017-07-23] MEDS: MORPHINE 2 MG/ML 1ML SYRINGE IV ×6 (05:28→21:07)
[2017-07-23 07:01] LABS: HEMATOCRIT 36.8 % (42.0-52.0); HEMOGLOBIN 12.4 g/dl (14.0-18.0); MEAN CORPUSCULAR HEMOGLOBIN 30.3 pg (27.0-33.0); MEAN CORPUSCULAR HGB CONC 33.7 g/dl (32.0-36.5); PLATELET COUNT, AUTOMATED 135 10^3/uL (150-450); RED BLOOD COUNT 4.09 10^6/uL (4.30-6.10); RED CELL DISTRIBUTION WIDTH 13.4 % (11.5-14.5); WHITE BLOOD COUNT 17.7 10^3/uL (4.0-10.0)
[2017-07-23 07:04] LABS: ADD MANUAL DIFFER YES; DIFF SLIDE NUMBER 5; POS COUNT POS FLAG; POSITIVE MORPH POS FLAG
[2017-07-23 07:13] LABS: ANION GAP 7 MEQ/L (8-16); BLOOD UREA NITROGEN 19 MG/DL (7-18); C REACTIVE PROTEIN QUANTITATIV 0.66 MG/DL (0.00-0.30); CALCIUM LEVEL 8.1 MG/DL (8.5-10.1); CARBON DIOXIDE LEVEL 30 MEQ/L (21-32); CHLORIDE LEVEL 102 MEQ/L (98-107); CREATININE FOR GFR 0.94 MG/DL (0.70-1.30); GLOMERULAR FILTRATION RATE > 60.0 (>56); GLUCOSE, FASTING 240 MG/DL (70-100); POTASSIUM SERUM 3.9 MEQ/L (3.5-5.1); SODIUM LEVEL 139 MEQ/L (136-145)
[2017-07-23 07:45] LABS: ANISOCYTOSIS 1+; ATYPICAL LYMPH 1 % (0-5); BANDS 1 % (< 11); EOSINOPHILS 1 % (0-5); HYPOCHROMASIA 1+; LYMPHOCYTES 13 % (16-52); MONOCYTES 5 % (0-8); MYELOCYTES 3 % (0-0); NEUTROPHILS 76 % (35-75); PLATELET ESTIMATE DECREASED (NORMAL); POLYCHROMASIA 1+
[2017-07-23] MEDS: DUTASTERIDE 0.5 MG CAP (AVODART) PO (08:24)
[2017-07-23] MEDS: DOCUSATE SODIUM 100 MG CAP PO ×2 (08:24→21:06)
[2017-07-23] MEDS: GABAPENTIN 300 MG CAP PO ×3 (08:25→21:04)
[2017-07-23] MEDS: HumaLOG INSULIN (NovoLOG) PER UNIT SC ×4 (08:25→21:03)
[2017-07-23] MEDS: BACLOFEN 10 MG TAB PO ×3 (08:25→21:06)
[2017-07-23] MEDS: LEVEMIR (INSULIN DETEMIR) 1 UNITS/0.01ML SC ×2 (08:25→21:04)
[2017-07-23] MEDS: buPROPion **XL** TABLET 150MG (WELLBUTRIN XL) PO (08:26)
[2017-07-23] MEDS: QUEtiapine FUMARATE 50 MG TAB PO ×3 (08:26→21:04)
[2017-07-23] MEDS: CEFDINIR 300 MG CAP (OMNICEF) PO ×2 (08:26→21:06)
[2017-07-23] MEDS: METOPROLOL TART 50 MG TAB PO (08:32)
[2017-07-23] MEDS: cloNIDine 0.1 MG TAB PO (08:32)
[2017-07-23] MEDS: AZELASTINE 137MCG NASAL SPY 30 ML (ASTELIN) ×2 (08:33→21:08)
[2017-07-23] MEDS: FLUTICASONE PROP 0.05% NASAL SPRAY 16 GM (FLONASE) ×2 (08:33→21:08)
[2017-07-23] MEDS: ADVAIR HFA 230/21MCG INHALER INH ×2 (08:42→20:27)
[2017-07-23] MEDS: TIOTROPIUM INHALER/CAPSULE (SPIRIVA) INH (08:42)
[2017-07-23 12:18] LABS: BEDSIDE GLUCOSE 353 MG/DL (70-105)
[2017-07-23 16:58] LABS: BEDSIDE GLUCOSE 363 MG/DL (70-105)
[2017-07-23] MEDS: FAMOTIDINE 20 MG TAB PO (17:22)
[2017-07-23] MEDS: NYSTATIN 500,000 U/5 ML SUSP UDC SS ×2 (17:22→21:05)
[2017-07-23 20:47] LABS: BEDSIDE GLUCOSE 397 MG/DL (70-105)
[2017-07-23] MEDS: DEXTROMETHORPHAN 60MG/10ML SUSP 90ML BTL(DELSYM) PO (21:04)
[2017-07-23] MEDS: PRAZOSIN 1 MG CAP PO (21:05)
[2017-07-23] MEDS: traZODone 50 MG TAB PO (21:05)
[2017-07-23] MEDS: MIRTAZAPINE 15 MG TAB PO (21:06)
[2017-07-23] MEDS: PRAVASTATIN 20 MG TAB PO (21:06)
[2017-07-23] MEDS: METOPROLOL SUCC (TopROL XL) 50MG **XL** TAB PO (21:13)
[2017-07-24 00:07] LABS: A1A FOR PHENOTYPE 152 mg/dL (90-200)
[2017-07-24] MEDS: MORPHINE 2 MG/ML 1ML SYRINGE IV ×6 (01:34→16:27)
[2017-07-24] MEDS: IPRATROPIUM 0.5MG/ALBUTEROL 2.5MG INH SOL UD 3ML (DUONEB)(J7620) NEB ×4 (02:00→20:00)
[2017-07-24] MEDS: LIDOCAINE 4% CREAM 5GM (LMX4) TOP ×6 (04:00→21:34)
[2017-07-24] MEDS: BENZONATATE 100 MG CAP PO ×3 (06:15→21:36)
[2017-07-24] MEDS: CYCLOBENZAPRINE 5MG TABLET PO ×4 (06:15→18:21)
[2017-07-24] MEDS: amLODIPine 10 MG TAB PO (06:56)
[2017-07-24 07:09] LABS: HEMATOCRIT 37.3 % (42.0-52.0); HEMOGLOBIN 12.7 g/dl (14.0-18.0); PLATELET COUNT, AUTOMATED 150 10^3/uL (150-450); RED CELL DISTRIBUTION WIDTH 13.5 % (11.5-14.5); WHITE BLOOD COUNT 20.3 10^3/uL (4.0-10.0)
[2017-07-24 07:18] LABS: ADD MANUAL DIFFER YES; DIFF SLIDE NUMBER 9; POS COUNT POS FLAG; POSITIVE MORPH POS FLAG
[2017-07-24 07:28] LABS: ANION GAP 10 MEQ/L (8-16); BLOOD UREA NITROGEN 20 MG/DL (7-18); C REACTIVE PROTEIN QUANTITATIV 0.41 MG/DL (0.00-0.30); CARBON DIOXIDE LEVEL 27 MEQ/L (21-32); CHLORIDE LEVEL 99 MEQ/L (98-107); CREATININE FOR GFR 0.87 MG/DL (0.70-1.30); GLOMERULAR FILTRATION RATE > 60.0 (>56); GLUCOSE, FASTING 271 MG/DL (70-100); SODIUM LEVEL 136 MEQ/L (136-145)
[2017-07-24 07:39] LABS: BANDS 1 % (< 11); LYMPHOCYTES 7 % (16-52); METAMYELOCYTES 4 % (0-0); MONOCYTES 4 % (0-8); MYELOCYTES 3 % (0-0); NEUTROPHILS 81 % (35-75)
[2017-07-24 07:40] LABS: PLATELET ESTIMATE DECREASED (NORMAL)
[2017-07-24] MEDS: ADVAIR HFA 230/21MCG INHALER INH ×2 (07:48→20:51)
[2017-07-24] MEDS: TIOTROPIUM INHALER/CAPSULE (SPIRIVA) INH (07:48)
[2017-07-24] MEDS: LEVEMIR (INSULIN DETEMIR) 1 UNITS/0.01ML SC ×2 (08:05→21:34)
[2017-07-24] MEDS: DUTASTERIDE 0.5 MG CAP (AVODART) PO (08:06)
[2017-07-24] MEDS: HumaLOG INSULIN (NovoLOG) PER UNIT SC ×4 (08:06→21:00)
[2017-07-24] MEDS: NYSTATIN 500,000 U/5 ML SUSP UDC SS ×3 (08:06→21:36)
[2017-07-24] MEDS: CEFDINIR 300 MG CAP (OMNICEF) PO ×2 (08:07→21:38)
[2017-07-24] MEDS: QUEtiapine FUMARATE 50 MG TAB PO ×3 (08:07→21:37)
[2017-07-24] MEDS: predniSONE 20 MG TAB PO (08:07)
[2017-07-24] MEDS: DOCUSATE SODIUM 100 MG CAP PO ×2 (08:08→21:37)
[2017-07-24] MEDS: GABAPENTIN 300 MG CAP PO ×3 (08:09→21:37)
[2017-07-24] MEDS: MORPHINE 30 MG SA TAB PO (08:09)
[2017-07-24] MEDS: buPROPion **XL** TABLET 150MG (WELLBUTRIN XL) PO (08:09)
[2017-07-24] MEDS: METOPROLOL SUCC (TopROL XL) 50MG **XL** TAB PO ×2 (08:10→21:38)
[2017-07-24] MEDS: BACLOFEN 10 MG TAB PO ×3 (08:12→21:36)
[2017-07-24] MEDS: FLUTICASONE PROP 0.05% NASAL SPRAY 16 GM (FLONASE) ×2 (08:12→21:36)
[2017-07-24] MEDS: AZELASTINE 137MCG NASAL SPY 30 ML (ASTELIN) ×2 (08:13→21:36)
[2017-07-24] MEDS ORDERED: NALOXONE INJ 0.4 MG/1 ML VIAL (J2310) IV (09:45)
[2017-07-24] MEDS: LISINOPRIL 10 MG TAB PO (11:21)
[2017-07-24] MEDS: DEXTROMETHORPHAN 60MG/10ML SUSP 90ML BTL(DELSYM) PO (18:21)
[2017-07-24] MEDS: FAMOTIDINE 20 MG TAB PO (18:21)
[2017-07-24] MEDS: ALPRAZolam 0.5 MG TAB PO (20:07)
[2017-07-24] MEDS: traMADol 50 MG TAB PO (20:07)
[2017-07-24 20:35] LABS: BEDSIDE GLUCOSE 198 MG/DL (70-105)
[2017-07-24 20:35] LABS: BEDSIDE GLUCOSE 241 MG/DL (70-105)
[2017-07-24] MEDS: VOLTAREN 1% TOP (21:35)
[2017-07-24] MEDS: traZODone 50 MG TAB PO (21:36)
[2017-07-24] MEDS: MIRTAZAPINE 15 MG TAB PO (21:37)
[2017-07-24] MEDS: PRAVASTATIN 20 MG TAB PO (21:37)
[2017-07-24] MEDS: PRAZOSIN 1 MG CAP PO (21:39)
[2017-07-24] MEDS: ALBUTEROL SULFATE 2.5 MG/0.5 ML INH NEB SOLN NEB (22:03)
[2017-07-25] MEDS: CYCLOBENZAPRINE 5MG TABLET PO ×3 (00:19→12:06)
[2017-07-25] MEDS: LIDOCAINE 4% CREAM 5GM (LMX4) TOP ×4 (00:19→12:08)
[2017-07-25] MEDS: IPRATROPIUM 0.5MG/ALBUTEROL 2.5MG INH SOL UD 3ML (DUONEB)(J7620) NEB ×2 (02:00→08:00)
[2017-07-25] MEDS: BENZONATATE 100 MG CAP PO (05:10)
[2017-07-25] MEDS: ALPRAZolam 0.5 MG TAB PO ×2 (05:10→12:07)
[2017-07-25] MEDS: traMADol 50 MG TAB PO (05:11)
[2017-07-25 06:57] LABS: HEMATOCRIT 36.3 % (42.0-52.0); HEMOGLOBIN 12.2 g/dl (14.0-18.0); MEAN CORPUSCULAR HGB CONC 33.6 g/dl (32.0-36.5); MEAN CORPUSCULAR VOLUME 92.4 fl (80.0-96.0); PLATELET COUNT, AUTOMATED 113 10^3/uL (150-450); RED BLOOD COUNT 3.93 10^6/uL (4.30-6.10); RED CELL DISTRIBUTION WIDTH 13.7 % (11.5-14.5); WHITE BLOOD COUNT 17.4 10^3/uL (4.0-10.0)
[2017-07-25 07:01] LABS: ADD MANUAL DIFFER YES; DIFF SLIDE NUMBER 55; POS COUNT POS FLAG; POSITIVE MORPH POS FLAG
[2017-07-25] MEDS: ADVAIR HFA 230/21MCG INHALER INH (07:13)
[2017-07-25] MEDS: TIOTROPIUM INHALER/CAPSULE (SPIRIVA) INH (07:15)
[2017-07-25 07:19] LABS: ANION GAP 5 MEQ/L (8-16); BLOOD UREA NITROGEN 22 MG/DL (7-18); CALCIUM LEVEL 7.9 MG/DL (8.5-10.1); CARBON DIOXIDE LEVEL 32 MEQ/L (21-32); CHLORIDE LEVEL 104 MEQ/L (98-107); CREATININE FOR GFR 0.88 MG/DL (0.70-1.30); GLOMERULAR FILTRATION RATE > 60.0 (>56); GLUCOSE, FASTING 146 MG/DL (70-100); POTASSIUM SERUM 4.2 MEQ/L (3.5-5.1); SODIUM LEVEL 141 MEQ/L (136-145)
[2017-07-25 07:47] LABS: ATYPICAL LYMPH 1 % (0-5); BANDS 2 % (< 11); LYMPHOCYTES 17 % (16-52); METAMYELOCYTES 4 % (0-0); MONOCYTES 8 % (0-8); MYELOCYTES 6 % (0-0); NEUTROPHILS 62 % (35-75); PLATELET ESTIMATE DECREASED (NORMAL)
[2017-07-25] MEDS: GABAPENTIN 300 MG CAP PO (07:51)
[2017-07-25] MEDS: LEVEMIR (INSULIN DETEMIR) 1 UNITS/0.01ML SC (07:51)
[2017-07-25] MEDS: BACLOFEN 10 MG TAB PO (07:52)
[2017-07-25] MEDS: buPROPion **XL** TABLET 150MG (WELLBUTRIN XL) PO (07:52)
[2017-07-25] MEDS: NYSTATIN 500,000 U/5 ML SUSP UDC SS (07:52)
[2017-07-25] MEDS: predniSONE 20 MG TAB PO (07:52)
[2017-07-25] MEDS: DOCUSATE SODIUM 100 MG CAP PO (07:52)
[2017-07-25] MEDS: CEFDINIR 300 MG CAP (OMNICEF) PO (07:52)
[2017-07-25] MEDS: DUTASTERIDE 0.5 MG CAP (AVODART) PO (07:53)
[2017-07-25] MEDS: QUEtiapine FUMARATE 50 MG TAB PO ×2 (07:53→12:07)
[2017-07-25] MEDS: LISINOPRIL 10 MG TAB PO (07:53)
[2017-07-25] MEDS: FLUTICASONE PROP 0.05% NASAL SPRAY 16 GM (FLONASE) (07:54)
[2017-07-25] MEDS: HumaLOG INSULIN (NovoLOG) PER UNIT SC ×2 (07:54→12:08)
[2017-07-25] MEDS: AZELASTINE 137MCG NASAL SPY 30 ML (ASTELIN) (07:55)
[2017-07-25] MEDS: METOPROLOL SUCC (TopROL XL) 50MG **XL** TAB PO (07:56)
[2017-07-25] MEDS: MORPHINE 30 MG TAB **MSIR PO (08:03)
[2017-07-25 11:39] LABS: BEDSIDE GLUCOSE 381 MG/DL (70-105)
[2017-07-26 18:14] LABS: BEDSIDE GLUCOSE 301 MG/DL (70-105)
== END 2017-07-25 12:45 | disposition home or self-care (01) | DRG 191 ==
LOC: M ED INP 07-17 01:31 → M MS5PR 07-17 02:48 → M ED 20:13
DX: J44.1 Chronic obstructive pulmonary disease with (acute) exacerbation (principal); E87.2 Acidosis; N17.9 Acute kidney failure, unspecified; Q87.40 Marfan syndrome, unspecified; F32.9 Major depressive disorder, single episode, unspecified; I10 Essential (primary) hypertension; G89.29 Other chronic pain; N40.0 Benign prostatic hyperplasia without lower urinary tract symptoms; R07.89 Other chest pain; J98.01 Acute bronchospasm; R73.03 Prediabetes; F41.9 Anxiety disorder, unspecified; E78.5 Hyperlipidemia, unspecified; Z79.899 Other long term (current) drug therapy; Z87.891 Personal history of nicotine dependence; Z88.8 Allergy status to other drugs, medicaments and biological substances; Z90.2 Acquired absence of lung [part of]

== ENCOUNTER 2017-09-12 17:35 | Emergency (ER) | payer OTHER ==
[2017-09-12 18:58] LABS: BASO % 0.5 % (0.0-1.0); EOS # 0.3 10^3/uL (0.0-0.50); EOS % 3.1 % (0.0-3.0); HEMATOCRIT 40.5 % (42.0-52.0); HEMOGLOBIN 13.8 g/dl (13.5-17.5); IMMATURE GRANULOCYTE % 0.3 % (0-3.0); LYMPH # 2.3 10^3/uL (1.5-4.5); LYMPH % 25.9 % (24.0-44.0); MEAN CORPUSCULAR HEMOGLOBIN 30.7 pg (27.0-33.0); MEAN CORPUSCULAR HGB CONC 34.1 g/dl (32.0-36.5); MEAN CORPUSCULAR VOLUME 90.2 fl (80.0-96.0); MONO # 0.9 10^3/uL (0.0-0.8); NEUTROPHILS # 5.3 10^3/uL (1.8-7.7); NEUTROPHILS % 60.2 % (36.0-66.0); PLATELET COUNT, AUTOMATED 166 10^3/uL (150-450); RED BLOOD COUNT 4.49 10^6/uL (4.30-6.10); RED CELL DISTRIBUTION WIDTH 12.9 % (11.5-14.5); WHITE BLOOD COUNT 8.8 10^3/uL (4.0-10.0)
[2017-09-12] MEDS: KETOROLAC 30 MG/ML VIAL (J1885) IV (18:58)
[2017-09-12 19:22] LABS: ERYTHROCYTE SEDIMENTATION RATE 24 mm/hr (0-20)
[2017-09-12 19:28] LABS: ANION GAP 6 MEQ/L (8-16); BLOOD UREA NITROGEN 12 MG/DL (7-18); C REACTIVE PROTEIN QUANTITATIV 1.16 MG/DL (0.00-0.30); CALCIUM LEVEL 8.7 MG/DL (8.5-10.1); CARBON DIOXIDE LEVEL 25 MEQ/L (21-32); CHLORIDE LEVEL 108 MEQ/L (98-107); CREATININE FOR GFR 0.95 MG/DL (0.70-1.30); GLOMERULAR FILTRATION RATE > 60.0 (>56); GLUCOSE, FASTING 68 MG/DL (70-100); POTASSIUM SERUM 4.4 MEQ/L (3.5-5.1); SODIUM LEVEL 139 MEQ/L (136-145)
[2017-09-12] MEDS ORDERED: ISOVUE-370 76% 100ML VIAL (Q9967) As Ordered (19:32)
[2017-09-12] MEDS: CLINDAMYCIN 150 MG CAP PO (20:39)
[2017-09-12] MEDS: ACETAMINOPHEN 325 MG TAB PO (20:39)
== END 2017-09-12 21:00 | disposition home or self-care (01) ==
LOC: M ED 17:35
DX: L03.211 Cellulitis of face (principal); I10 Essential (primary) hypertension; N40.0 Benign prostatic hyperplasia without lower urinary tract symptoms; K21.9 Gastro-esophageal reflux disease without esophagitis; K75.9 Inflammatory liver disease, unspecified; J43.9 Emphysema, unspecified; Q87.40 Marfan syndrome, unspecified; F10.10 Alcohol abuse, uncomplicated; F43.10 Post-traumatic stress disorder, unspecified; F17.200 Nicotine dependence, unspecified, uncomplicated; Z79.899 Other long term (current) drug therapy; Z88.8 Allergy status to other drugs, medicaments and biological substances; Z98.890 Other specified postprocedural states; Z87.820 Personal history of traumatic brain injury
CPT/HCPCS: Q9967

== ENCOUNTER 2017-09-29 11:24 | Emergency (ER) | payer OTHER ==
[2017-09-29] MEDS: TETRACAINE 0.5% OPHTH SOLN 4ML OS (13:30)
[2017-09-29] MEDS: FLUORESCEIN OPHTH 1 MG STRIP OS (13:30)
== END 2017-09-29 14:45 | disposition home or self-care (01) ==
LOC: M ED 11:24
DX: H57.12 Ocular pain, left eye (principal); H57.8 Other specified disorders of eye and adnexa; I10 Essential (primary) hypertension; E78.5 Hyperlipidemia, unspecified; K21.9 Gastro-esophageal reflux disease without esophagitis; N40.0 Benign prostatic hyperplasia without lower urinary tract symptoms; B18.2 Chronic viral hepatitis C; K76.0 Fatty (change of) liver, not elsewhere classified; F33.9 Major depressive disorder, recurrent, unspecified; F41.9 Anxiety disorder, unspecified; F17.210 Nicotine dependence, cigarettes, uncomplicated; R56.9 Unspecified convulsions; Z87.820 Personal history of traumatic brain injury; Z96.1 Presence of intraocular lens; Z85.821 Personal history of Merkel cell carcinoma
CPT/HCPCS: 99283

== ENCOUNTER 2017-12-21 14:25 | Emergency (ER) | payer OTHER ==
[2017-12-21] MEDS: predniSONE 20 MG TAB PO (17:00)
[2017-12-21] MEDS ORDERED: MOXIFLOXACIN 400 MG TAB PO (17:15)
== END 2017-12-21 17:18 | disposition home or self-care (01) ==
LOC: M ED 14:25
DX: J44.1 Chronic obstructive pulmonary disease with (acute) exacerbation (principal); I10 Essential (primary) hypertension; E78.00 Pure hypercholesterolemia, unspecified; F17.200 Nicotine dependence, unspecified, uncomplicated; K76.0 Fatty (change of) liver, not elsewhere classified; Q87.40 Marfan syndrome, unspecified; F33.9 Major depressive disorder, recurrent, unspecified; F43.10 Post-traumatic stress disorder, unspecified; Z88.8 Allergy status to other drugs, medicaments and biological substances; Z79.899 Other long term (current) drug therapy; Z87.01 Personal history of pneumonia (recurrent)
CPT/HCPCS: 71046

== ENCOUNTER 2018-04-10 00:20 | Inpatient (IN) | payer OTHER ==
[2018-04-10 01:11] LABS: BASO % 0.6 % (0.0-1.0); EOS # 0.2 10^3/uL (0.0-0.50); EOS % 2.5 % (0.0-3.0); HEMATOCRIT 39.6 % (42.0-52.0); HEMOGLOBIN 13.4 g/dl (13.5-17.5); IMMATURE GRANULOCYTE % 1.2 % (0-3.0); LYMPH # 1.7 10^3/uL (1.5-4.5); LYMPH % 24.8 % (24.0-44.0); MEAN CORPUSCULAR HGB CONC 33.8 g/dl (32.0-36.5); MEAN CORPUSCULAR VOLUME 91.7 fl (80.0-96.0); MONO # 0.7 10^3/uL (0.0-0.8); MONO % 10.7 % (0.0-5.0); NEUTROPHILS # 4.1 10^3/uL (1.8-7.7); NEUTROPHILS % 60.2 % (36.0-66.0); PLATELET COUNT, AUTOMATED 123 10^3/uL (150-450); RED BLOOD COUNT 4.32 10^6/uL (4.30-6.10); RED CELL DISTRIBUTION WIDTH 13.3 % (11.5-14.5); WHITE BLOOD COUNT 6.7 10^3/uL (4.0-10.0)
[2018-04-10] MEDS: NS 1,000 ML IV ×3 (01:11→04:30)
[2018-04-10] MEDS: PANTOPRAZOLE 40MG INJ (PROTONIX) (C9113) IV ×4 (01:11→20:31)
[2018-04-10 01:19] LABS: INR 0.98; PROTHROMBIN TIME 13.1 SECONDS (12.1-14.4)
[2018-04-10 01:20] LABS: PARTIAL THROMBOPLASTIN TIME 26.7 SECONDS (25.4-37.6)
[2018-04-10 01:31] LABS: ALT/SGPT 78 U/L (12-78); ANION GAP 9 MEQ/L (8-16); AST/SGOT 60 U/L (7-37); BLOOD UREA NITROGEN 12 MG/DL (7-18); CALCIUM LEVEL 8.5 MG/DL (8.5-10.1); CARBON DIOXIDE LEVEL 27 MEQ/L (21-32); CHLORIDE LEVEL 104 MEQ/L (98-107); GLOMERULAR FILTRATION RATE > 60.0 (>56); GLUCOSE, FASTING 126 MG/DL (70-100); POTASSIUM SERUM 4.3 MEQ/L (3.5-5.1); SODIUM LEVEL 140 MEQ/L (136-145)
[2018-04-10 01:32] LABS: ALBUMIN 3.6 GM/DL (3.2-5.2); ALBUMIN/GLOBULIN RATIO 1.29 (1.00-1.93); ALKALINE PHOSPHATASE 72 U/L (45-117); BILIRUBIN,DIRECT 0.1 MG/DL (0.0-0.2); BILIRUBIN,TOTAL 0.3 MG/DL (0.2-1.0); LIPASE 112 U/L (73-393); TOTAL PROTEIN 6.4 GM/DL (6.4-8.2)
[2018-04-10] MEDS: LORazepam 2 MG/ML VIAL (J2060) IV (01:55)
[2018-04-10] MEDS ORDERED: ALBUTEROL 90 MCG/ACT 8GM HFA INHALER INH (03:15)
[2018-04-10] MEDS: NICOTINE 14 MG/24 HR TRANSDERMAL TD (04:16)
[2018-04-10] MEDS: MORPHINE 4 MG/ML 1ML VIAL/SYRINGE (J2270) IV ×4 (04:27→21:38)
[2018-04-10] MEDS ORDERED: OXAZEPAM 10 MG CAP PO (07:45)
[2018-04-10] MEDS ORDERED: IPRATROPIUM 0.5MG/ALBUTEROL 2.5MG INH SOL UD 3ML (DUONEB)(J7620) NEB (07:45)
[2018-04-10 07:50] LABS: HEMATOCRIT 34.8 % (42.0-52.0); HEMOGLOBIN 11.7 g/dl (13.5-17.5)
[2018-04-10] MEDS: IPRATROPIUM 0.5MG/ALBUTEROL 2.5MG INH SOL UD 3ML (DUONEB)(J7620) NEB ×3 (08:00→20:00)
[2018-04-10 08:12] LABS: ETHYL ALCOHOL (ETHANOL) < 0.003 % (0.000-0.010)
[2018-04-10] MEDS: TIOTROPIUM INHALER/CAPSULE (SPIRIVA) INH (10:21)
[2018-04-10] MEDS: SYMBICORT 160/4.5MCG INHALER 6GM INH ×2 (10:21→19:55)
[2018-04-10] MEDS: SUCRALFATE SUSP 1GM/10ML UD PO ×3 (10:21→17:27)
[2018-04-10] MEDS: TAMSULOSIN 0.4 MG CAP PO (10:22)
[2018-04-10] MEDS: GABAPENTIN 400 MG CAP PO ×3 (10:22→20:29)
[2018-04-10] MEDS: MULTIVITAMINS/MINERALS THERAP 1 TAB PO (10:23)
[2018-04-10] MEDS: FOLIC ACID 1 MG TAB PO (10:23)
[2018-04-10] MEDS: QUEtiapine FUMARATE 50 MG TAB PO ×2 (10:23→17:27)
[2018-04-10] MEDS: THIAMINE 100 MG TAB PO (10:23)
[2018-04-10] MEDS: ROSUVASTATIN 10 MG TAB (CRESTOR) PO (10:23)
[2018-04-10 12:38] LABS: HEMATOCRIT 35.4 % (42.0-52.0); HEMOGLOBIN 12.1 g/dl (13.5-17.5)
[2018-04-10 18:02] LABS: HEMATOCRIT 35.3 % (42.0-52.0)
[2018-04-10 18:09] LABS: POS COUNT POS FLAG
[2018-04-10] MEDS ORDERED: MORPHINE 4 MG/ML 1ML VIAL/SYRINGE (J2270) IV (18:15)
[2018-04-10] MEDS: ONDANSETRON 4 MG TAB (S0181) PO (20:27)
[2018-04-10] MEDS: buPROPion **XL** TABLET 150MG (WELLBUTRIN XL) PO (20:28)
[2018-04-10] MEDS: traZODone 50 MG TAB PO (20:29)
[2018-04-10] MEDS: MIRTAZAPINE 15 MG TAB PO (20:29)
[2018-04-10] MEDS: PRAZOSIN 1 MG CAP PO (20:30)
[2018-04-10] MEDS: QUEtiapine FUMARATE 200 MG TAB PO (21:00)
[2018-04-11 00:46] LABS: HEMATOCRIT 33.9 % (42.0-52.0); HEMOGLOBIN 11.4 g/dl (13.5-17.5)
[2018-04-11] MEDS: NS 1,000 ML IV ×2 (01:00→12:36)
[2018-04-11] MEDS: IPRATROPIUM 0.5MG/ALBUTEROL 2.5MG INH SOL UD 3ML (DUONEB)(J7620) NEB ×4 (02:00→19:48)
[2018-04-11] MEDS: MORPHINE 4 MG/ML 1ML VIAL/SYRINGE (J2270) IV ×3 (03:59→21:45)
[2018-04-11 05:37] LABS: HEMOGLOBIN 11.3 g/dl (13.5-17.5); MEAN CORPUSCULAR HGB CONC 33.2 g/dl (32.0-36.5); MEAN CORPUSCULAR VOLUME 93.4 fl (80.0-96.0); PLATELET COUNT, AUTOMATED 101 10^3/uL (150-450); RED BLOOD COUNT 3.64 10^6/uL (4.30-6.10); RED CELL DISTRIBUTION WIDTH 13.5 % (11.5-14.5); WHITE BLOOD COUNT 4.8 10^3/uL (4.0-10.0)
[2018-04-11 06:01] LABS: ALBUMIN 3.1 GM/DL (3.2-5.2); ALBUMIN/GLOBULIN RATIO 1.15 (1.00-1.93); ALKALINE PHOSPHATASE 62 U/L (45-117); ALT/SGPT 52 U/L (12-78); ANION GAP 9 MEQ/L (8-16); AST/SGOT 34 U/L (7-37); BILIRUBIN,TOTAL 0.4 MG/DL (0.2-1.0); BLOOD UREA NITROGEN 9 MG/DL (7-18); CALCIUM LEVEL 7.8 MG/DL (8.5-10.1); CARBON DIOXIDE LEVEL 26 MEQ/L (21-32); CHLORIDE LEVEL 108 MEQ/L (98-107); CREATININE FOR GFR 0.95 MG/DL (0.70-1.30); GLOMERULAR FILTRATION RATE > 60.0 (>56); GLUCOSE, FASTING 94 MG/DL (70-100); POTASSIUM SERUM 4.1 MEQ/L (3.5-5.1); SODIUM LEVEL 143 MEQ/L (136-145); TOTAL PROTEIN 5.8 GM/DL (6.4-8.2)
[2018-04-11] MEDS: SUCRALFATE SUSP 1GM/10ML UD PO ×3 (07:30→17:41)
[2018-04-11] MEDS: QUEtiapine FUMARATE 50 MG TAB PO ×2 (08:00→11:36)
[2018-04-11] MEDS: PANTOPRAZOLE 40MG INJ (PROTONIX) (C9113) IV ×2 (08:32→21:42)
[2018-04-11] MEDS: TIOTROPIUM INHALER/CAPSULE (SPIRIVA) INH (08:39)
[2018-04-11] MEDS: SYMBICORT 160/4.5MCG INHALER 6GM INH ×2 (08:39→19:48)
[2018-04-11] MEDS ORDERED: PROPOFOL 200 MG/20 ML VIAL As Ordered ×2 (09:07→10:13)
[2018-04-11] MEDS ORDERED: LIDOCAINE 2% INJ 100 MG/5 ML SDV (FOR ANES.) As Ordered (09:07)
[2018-04-11] MEDS ORDERED: fentaNYL 100 MCG/2 ML INJECTION (J3010) As Ordered (10:02)
[2018-04-11] MEDS ORDERED: PERCOCET 5MG/325MG TAB As Ordered (10:51)
[2018-04-11] MEDS: PERCOCET 5MG/325MG TAB PO (10:54)
[2018-04-11] MEDS ORDERED: ONDANSETRON 4MG/2ML VIAL (J2405) IV (11:00)
[2018-04-11] MEDS ORDERED: fentaNYL 100 MCG/2 ML INJECTION (J3010) IV (11:00)
[2018-04-11] MEDS ORDERED: METOCLOPRAMIDE INJ 10MG/2ML VIAL (J2765) IV (11:00)
[2018-04-11] MEDS: LR 1,000 ML IV (11:00)
[2018-04-11] MEDS: TAMSULOSIN 0.4 MG CAP PO (11:35)
[2018-04-11] MEDS: ROSUVASTATIN 10 MG TAB (CRESTOR) PO (11:35)
[2018-04-11] MEDS: GABAPENTIN 400 MG CAP PO ×3 (11:35→21:35)
[2018-04-11] MEDS: THIAMINE 100 MG TAB PO (11:35)
[2018-04-11] MEDS: MULTIVITAMINS/MINERALS THERAP 1 TAB PO (11:36)
[2018-04-11] MEDS: FOLIC ACID 1 MG TAB PO (11:36)
[2018-04-11 11:47] LABS: HEMATOCRIT 34.4 % (42.0-52.0); HEMOGLOBIN 11.5 g/dl (13.5-17.5)
[2018-04-11] MEDS: CHLORASEPTIC SPRAY MT (17:41)
[2018-04-11 18:02] LABS: HEMATOCRIT 35.1 % (42.0-52.0); HEMOGLOBIN 11.9 g/dl (13.5-17.5)
[2018-04-11] MEDS: PRAZOSIN 1 MG CAP PO (21:35)
[2018-04-11] MEDS: buPROPion **XL** TABLET 150MG (WELLBUTRIN XL) PO (21:36)
[2018-04-11] MEDS: traZODone 50 MG TAB PO (21:36)
[2018-04-11] MEDS: QUEtiapine FUMARATE 200 MG TAB PO (21:41)
[2018-04-11] MEDS: MIRTAZAPINE 15 MG TAB PO (21:41)
[2018-04-11 23:41] LABS: HEMATOCRIT 33.2 % (42.0-52.0); HEMOGLOBIN 11.1 g/dl (13.5-17.5)
[2018-04-12] MEDS: IPRATROPIUM 0.5MG/ALBUTEROL 2.5MG INH SOL UD 3ML (DUONEB)(J7620) NEB ×3 (01:58→13:19)
[2018-04-12 05:57] LABS: HEMATOCRIT 33.1 % (42.0-52.0); HEMOGLOBIN 11.3 g/dl (13.5-17.5); MEAN CORPUSCULAR HEMOGLOBIN 31.7 pg (27.0-33.0); MEAN CORPUSCULAR HGB CONC 34.1 g/dl (32.0-36.5); RED BLOOD COUNT 3.56 10^6/uL (4.30-6.10); RED CELL DISTRIBUTION WIDTH 13.3 % (11.5-14.5); WHITE BLOOD COUNT 4.4 10^3/uL (4.0-10.0)
[2018-04-12 05:58] LABS: PLATELET COUNT, AUTOMATED 99 10^3/uL (150-450)
[2018-04-12 06:01] LABS: IMMATURE PLATELET FRACTION % 7.1 % (0.0-10.9)
[2018-04-12 06:20] LABS: ALT/SGPT 50 U/L (12-78); ANION GAP 8 MEQ/L (8-16); AST/SGOT 33 U/L (7-37); BLOOD UREA NITROGEN 9 MG/DL (7-18); CARBON DIOXIDE LEVEL 27 MEQ/L (21-32); CHLORIDE LEVEL 109 MEQ/L (98-107); CREATININE FOR GFR 0.96 MG/DL (0.70-1.30); GLOMERULAR FILTRATION RATE > 60.0 (>56); GLUCOSE, FASTING 116 MG/DL (70-100); POTASSIUM SERUM 3.8 MEQ/L (3.5-5.1); SODIUM LEVEL 144 MEQ/L (136-145)
[2018-04-12 06:21] LABS: ALBUMIN/GLOBULIN RATIO 1.11 (1.00-1.93); ALKALINE PHOSPHATASE 61 U/L (45-117); BILIRUBIN,TOTAL 0.4 MG/DL (0.2-1.0); MAGNESIUM LEVEL 1.9 MG/DL (1.8-2.4); TOTAL PROTEIN 5.7 GM/DL (6.4-8.2)
[2018-04-12] MEDS: TIOTROPIUM INHALER/CAPSULE (SPIRIVA) INH (07:33)
[2018-04-12] MEDS: SYMBICORT 160/4.5MCG INHALER 6GM INH (07:33)
[2018-04-12] MEDS: TAMSULOSIN 0.4 MG CAP PO (09:04)
[2018-04-12] MEDS: THIAMINE 100 MG TAB PO (09:04)
[2018-04-12] MEDS: FOLIC ACID 1 MG TAB PO (09:04)
[2018-04-12] MEDS: SUCRALFATE SUSP 1GM/10ML UD PO ×2 (09:05→12:07)
[2018-04-12] MEDS: MULTIVITAMINS/MINERALS THERAP 1 TAB PO (09:05)
[2018-04-12] MEDS: GABAPENTIN 400 MG CAP PO (09:05)
[2018-04-12] MEDS: ROSUVASTATIN 10 MG TAB (CRESTOR) PO (09:05)
[2018-04-12] MEDS: PANTOPRAZOLE 40MG TAB (PROTONIX) PO (09:05)
[2018-04-12] MEDS: QUEtiapine FUMARATE 50 MG TAB PO ×2 (09:05→12:09)
[2018-04-12] MEDS: MORPHINE 4 MG/ML 1ML VIAL/SYRINGE (J2270) IV (09:18)
[2018-04-12 11:46] LABS: HEMATOCRIT 34.6 % (42.0-52.0); HEMOGLOBIN 11.6 g/dl (13.5-17.5)
== END 2018-04-12 15:41 | disposition home or self-care (01) | DRG 379 ==
LOC: M ED 00:20 → M ED INP 03:17 → M PCU 11:54
PROC: 0W3P8ZZ Control Bleeding in Gastrointestinal Tract, Via Natural or Artificial Opening Endoscopic (ICD-10-PCS; principal; 2018-04-11 09:00)
PROC: 0DB78ZX Excision of Stomach, Pylorus, Via Natural or Artificial Opening Endoscopic, Diagnostic (ICD-10-PCS; 2018-04-11 09:00)
DX: K28.4 Chronic or unspecified gastrojejunal ulcer with hemorrhage (principal); J44.9 Chronic obstructive pulmonary disease, unspecified; K29.71 Gastritis, unspecified, with bleeding; F32.9 Major depressive disorder, single episode, unspecified; I10 Essential (primary) hypertension; E78.5 Hyperlipidemia, unspecified; F17.210 Nicotine dependence, cigarettes, uncomplicated; G89.29 Other chronic pain; K21.0 Gastro-esophageal reflux disease with esophagitis; Z79.899 Other long term (current) drug therapy; Z88.8 Allergy status to other drugs, medicaments and biological substances

== ENCOUNTER 2018-07-08 11:10 | Emergency (ER) | payer OTHER ==
[~2018-07-08] VITALS: Ht 182.9 cm; Wt 95.5 kg
[~2018-07-08 11:10] MED LIST changes: +AVEL1TAB3 PO; +BACL1TAB9 PO; +BENZ200C70 PO; +BUPR1TAB53 PO; +BUPR300T34 PO; +CEFD300CAP PO; +CHLO25CA PO; +CLEO300C2 PO; +CRES10TA32 PO; +DOXY100T2 PO; -DOXY10CA PO; +EYE5SOL OS; +FIOR1CAP PO; +FLOM0.4C39 PO; +FOLI1TAB11 PO; -GABA600T PO; +GABA600T4 PO; -GABA800T PO; +GABA800T4 PO; +IPRA0.00 INH; +IPRA0.00 NEB; +LEVA750T7 PO; +METO1TAB7 PO; -METO50TA2 PO; +METO50TA7 PO; +MIRT-16 PO; +MIRT45TA4 PO; -MUCI600T34 PO; +MUCI600T37 PO; +NAPR-885 PO; -NAPR500T2 PO; +NICO21DI34 TD; +OCUF0.25 OS; +PANT40TA3 PO; +PARO30TA3 PO; -PARO30TA70 PO; +PATIENT COMMENT; +PRAV40TA2 PO; -PRED10TA FT; +PRED10TA2 FT; +PRED10TA2 PO; +PRED20TA PO; -PROA1AER INH; +PROAAER10 INH; +PROT1TAB2 PO; +QUET5TAB PO; +RANI150T PO; +SUCR10SS PO; +SUCR1TA PO; +THIA100TA PO; +TRAZ-160 PO; -TRAZ50TA4 PO; +VITMTA PO; +VIVI380I IM; +VOLT1GEL15 TD; +ZOFR4TAB14 SL
--- NOTE | 2018-07-08 12:02 | REP ---
Chest two views HISTORY: Cough Comparison: 12/21/2017 A minimal increase in interstitial markings is present in the lungs consistent with chronic interstitial change. The heart is normal in size. The pulmonary vasculature is normal in appearance. The bony structure is intact. A dorsal column stimulator is present in the mid thoracic spinal canal. IMPRESSION: Chronic interstitial change. Electronically Signed by Ran Frost MD 07/08/2018 11:53 A
[2018-07-08 12:18] LABS: INFLUENZA A AMPLIFICATION NEGATIVE (NEGATIVE); INFLUENZA B AMPLIFICATION NEGATIVE (NEGATIVE)
[2018-07-08 12:30] VITALS: BP 136/92
[2018-07-08] MEDS ORDERED: PRED20TA PO (12:37)
== END 2018-07-08 12:50 | disposition home or self-care (01) ==
LOC: M ED 11:10
DX: J06.9 Acute upper respiratory infection, unspecified (principal); J44.9 Chronic obstructive pulmonary disease, unspecified; I10 Essential (primary) hypertension; E78.00 Pure hypercholesterolemia, unspecified; K21.9 Gastro-esophageal reflux disease without esophagitis; F32.9 Major depressive disorder, single episode, unspecified

== ENCOUNTER 2018-07-16 13:10 | Emergency (ER) | payer OTHER ==
[~2018-07-16] VITALS: Ht 182.9 cm; Wt 95.5 kg
[2018-07-16] MEDS ORDERED: PANT40TA3 (13:18)
[2018-07-16] MEDS ORDERED: MORPHINE 4 MG/ML 1ML VIAL/SYRINGE (J2270) IM ONE (14:00)
--- NOTE | 2018-07-16 14:43 | REP ---
Clinical: Trauma. Fall. Technique: Frontal view of the pelvis with neutral and frog lateral views of the right hip. Findings: Osseous structures and joint spaces are intact and there is no evidence for acute fracture dislocation. Mild age-related degenerative changes include increased sclerosis to the acetabular roof with subtle marginal spurring and minimal joint space narrowing. Surrounding soft tissues are unremarkable. Impression: Age-related degenerative changes. No acute fracture or dislocation appreciated. Electronically Signed by Cristiano Trevino MD 07/16/2018 02:35 P
[2018-07-16] MEDS ORDERED: NORCOTAB PO (15:00)
[2018-07-16 15:06] VITALS: BP 125/94
== END 2018-07-16 15:08 | disposition home or self-care (01) ==
LOC: M ED 13:10
DX: S79.911A Unspecified injury of right hip, initial encounter (principal); W19.XXXA Unspecified fall, initial encounter; Y92.018 Other place in single-family (private) house as the place of occurrence of the external cause; K21.9 Gastro-esophageal reflux disease without esophagitis; F33.9 Major depressive disorder, recurrent, unspecified; N40.0 Benign prostatic hyperplasia without lower urinary tract symptoms; Q87.40 Marfan syndrome, unspecified; Z88.8 Allergy status to other drugs, medicaments and biological substances; F17.210 Nicotine dependence, cigarettes, uncomplicated
CPT/HCPCS: 73502; 96372; 99283; J2270

== ENCOUNTER 2018-07-20 21:04 | Emergency (ER) | payer OTHER ==
[~2018-07-20] VITALS: Ht 182.9 cm; Wt 95.5 kg
[2018-07-20 21:04] VITALS: BP 169/106
[~2018-07-20 21:04] MED LIST changes: +NORCOTAB PO; +PANT40TA3
[2018-07-20] MEDS ORDERED: FLUC200T2 PO (23:20)
[2018-07-20] MEDS ORDERED: FLUCONAZOLE 100 MG TAB PO ONE (23:30)
== END 2018-07-21 00:05 | disposition home or self-care (01) ==
LOC: M ED 21:04
DX: B37.0 Candidal stomatitis (principal); B37.81 Candidal esophagitis; I10 Essential (primary) hypertension; J44.9 Chronic obstructive pulmonary disease, unspecified; Z90.2 Acquired absence of lung [part of]; Z87.820 Personal history of traumatic brain injury; K21.9 Gastro-esophageal reflux disease without esophagitis; N40.0 Benign prostatic hyperplasia without lower urinary tract symptoms; K76.0 Fatty (change of) liver, not elsewhere classified; Q87.40 Marfan syndrome, unspecified; F32.9 Major depressive disorder, single episode, unspecified; F10.10 Alcohol abuse, uncomplicated; F43.10 Post-traumatic stress disorder, unspecified; F17.200 Nicotine dependence, unspecified, uncomplicated; Z88.8 Allergy status to other drugs, medicaments and biological substances; Z79.899 Other long term (current) drug therapy; Z79.51 Long term (current) use of inhaled steroids

== ENCOUNTER 2018-08-02 15:09 | Emergency (ER) | payer OTHER ==
[~2018-08-02] VITALS: Ht 182.9 cm; Wt 95.5 kg
[~2018-08-02 15:09] MED LIST changes: +FLUC200T2 PO
[2018-08-02] MEDS ORDERED: KETO10TAB PO (17:25)
[2018-08-02] MEDS ORDERED: PERCOCET 5MG/325MG TAB PO ONE (17:30)
[2018-08-02 17:32] VITALS: BP 126/94
== END 2018-08-02 17:39 | disposition home or self-care (01) ==
LOC: M ED 15:09
DX: R10.30 Lower abdominal pain, unspecified (principal); I10 Essential (primary) hypertension; K21.9 Gastro-esophageal reflux disease without esophagitis; N40.0 Benign prostatic hyperplasia without lower urinary tract symptoms; F10.20 Alcohol dependence, uncomplicated; Z87.820 Personal history of traumatic brain injury; J44.9 Chronic obstructive pulmonary disease, unspecified; F43.10 Post-traumatic stress disorder, unspecified; Q87.40 Marfan syndrome, unspecified; Z86.19 Personal history of other infectious and parasitic diseases; Z96.9 Presence of functional implant, unspecified; Z72.0 Tobacco use; Z79.899 Other long term (current) drug therapy; Z88.8 Allergy status to other drugs, medicaments and biological substances

== ENCOUNTER 2018-08-26 01:10 | Emergency (ER) | payer OTHER ==
[~2018-08-26] VITALS: Ht 182.9 cm; Wt 88.6 kg
[2018-08-26 02:12] LABS: BASO % 0.4 % (0.0-1.0); EOS # 0.1 10^3/uL (0.0-0.50); EOS % 2.4 % (0.0-3.0); HEMOGLOBIN 12.8 g/dl (13.5-17.5); LYMPH # 1.6 10^3/uL (1.5-4.5); LYMPH % 34.9 % (24.0-44.0); MEAN CORPUSCULAR HEMOGLOBIN 32.1 pg (27.0-33.0); MEAN CORPUSCULAR HGB CONC 33.7 g/dl (32.0-36.5); MEAN CORPUSCULAR VOLUME 95.2 fl (80.0-96.0); MONO # 0.4 10^3/uL (0.0-0.8); MONO % 8.5 % (0.0-5.0); NEUTROPHILS # 2.5 10^3/uL (1.8-7.7); NEUTROPHILS % 53.4 % (36.0-66.0); PLATELET COUNT, AUTOMATED 111 10^3/uL (150-450); RED BLOOD COUNT 3.99 10^6/uL (4.30-6.10); WHITE BLOOD COUNT 4.6 10^3/uL (4.0-10.0)
[2018-08-26 02:26] LABS: ALBUMIN 3.1 GM/DL (3.2-5.2); ALT/SGPT 75 U/L (12-78); BILIRUBIN,TOTAL 0.3 MG/DL (0.2-1.0); BLOOD UREA NITROGEN 5 MG/DL (7-18); CALCIUM LEVEL 7.8 MG/DL (8.5-10.1); CARBON DIOXIDE LEVEL 26 MEQ/L (21-32); CHLORIDE LEVEL 107 MEQ/L (98-107); CK-MB VALUE MASS < 1.0 NG/ML (<3.6); CPK CREATINE PHOSPHOKINASE 122 U/L (39-308); CREATININE FOR GFR 0.82 MG/DL (0.70-1.30); GLOMERULAR FILTRATION RATE > 60.0 (>56); GLUCOSE, FASTING 243 MG/DL (70-100); LIPASE 136 U/L (73-393); MB/CK RELATIVE INDEX 0.82 (< OR =4); POTASSIUM SERUM 4.3 MEQ/L (3.5-5.1); SODIUM LEVEL 141 MEQ/L (136-145); TOTAL PROTEIN 5.9 GM/DL (6.4-8.2); TROPONIN I < 0.02 NG/ML (< 0.10)
[2018-08-26] MEDS ORDERED: MULTIVITAMIN -ADULT INJECTION 10 ML, THIAMINE INJection 100 MG, FOLIC ACID 1 MG in NS 1... IV ONE (02:30)
[2018-08-26] MEDS ORDERED: PHENobarbital INJ 65 MG/ML VIAL (J2560) IV STA (02:38)
[2018-08-26] MEDS ORDERED: HumuLIN R (REGULAR) INSULIN (NovoLIN R) **100U/ML** PER UNIT IV ONE (03:15)
[2018-08-26 03:53] VITALS: BP 122/73
--- NOTE | 2018-08-26 20:50 | ECGEPIP ---
Stationary ECG Study [facility] - ED Test Date: 2018-08-26 Pat Name: GENOVEVA LUNA Department: Room: - Gender: M [employer] Operator: [facility] : 1965 Requested By: HARRIET ROBERTS Order Number: [id number] Reading MD: Jordyn Stoner Measurements Intervals [place] Rate: 123 P: 4 VT: 162 QRS: 2 QRSD: 84 T: -8 QT: 313 QTc: 448 Interpretive Statements SINUS TACHYCARDIA PRWP NSTTW ABNORMALITY ABNORMAL RHYTHM ECG Electronically Signed On 08-26-2018 20:50:42 EDT by Jordyn Stoner
== END 2018-08-26 04:03 | disposition home or self-care (01) ==
LOC: M ED 01:10
DX: E11.65 Type 2 diabetes mellitus with hyperglycemia (principal); F10.239 Alcohol dependence with withdrawal, unspecified; R00.0 Tachycardia, unspecified; E78.5 Hyperlipidemia, unspecified; J44.9 Chronic obstructive pulmonary disease, unspecified; G89.29 Other chronic pain; M54.9 Dorsalgia, unspecified; G57.61 Lesion of plantar nerve, right lower limb; Z87.09 Personal history of other diseases of the respiratory system; Z72.0 Tobacco use; Z79.899 Other long term (current) drug therapy; Z88.8 Allergy status to other drugs, medicaments and biological substances
CPT/HCPCS: 80053; 82550; 82553; 83690; 84484; 85025; 93005; 93041; 99284; J2560; J3411

== ENCOUNTER 2018-09-13 01:07 | Emergency (ER) | payer OTHER ==
[~2018-09-13] VITALS: Ht 182.9 cm; Wt 97.1 kg
[~2018-09-13 01:07] MED LIST changes: +CRES10TA PO; -CRES10TA32 PO; +FENT25DI33 TD; -FENT25PA TD; +HYDR-3715 PO; -MIRT-16 PO; +MIRT1TAB16 PO; -NORCOTAB PO
[2018-09-13] MEDS ORDERED: predniSONE 20 MG TAB PO ONE (01:45)
[2018-09-13] MEDS: IPRATROPIUM 0.5MG/ALBUTEROL 2.5MG INH SOL UD 3ML (DUONEB)(J7620) NEB SCH ×3 (01:59→02:28)
[2018-09-13 02:33] LABS: INFLUENZA A AMPLIFICATION NEGATIVE (NEGATIVE); INFLUENZA B AMPLIFICATION NEGATIVE (NEGATIVE)
[2018-09-13 03:03] VITALS: BP 142/82
[2018-09-13] MEDS ORDERED: IPRA0.00 NEB (03:08)
[2018-09-13] MEDS ORDERED: PRED20TA PO (03:08)
[2018-09-13] MEDS ORDERED: DOXY100C37 PO (03:09)
--- NOTE | 2018-09-13 09:14 | REP ---
Clinical: Cough. Technique: PA and lateral. Comparison: 07/08/2018. Findings: Pleuroparenchymal and postsurgical changes involving the right hemithorax remains stable. Prominent appearance to the right hilum is again noted. Cardiac silhouette is normal. Left hemithorax appears clear. Skeletal structures are intact. Impression: 1. Stable pleuroparenchymal and postsurgical changes involving the right hemithorax. 2. Prominent appearance to the right hilum concerning for possible underlying adenopathy. Electronically Signed by Cristiano Trevino MD 09/13/2018 09:06 A
--- NOTE | 2018-09-13 10:49 | ED PDOC ---
Post-Departure Follow-Up karrie neri faxed formal report of cxr for fu Amarilis Jarrett MD Sep 13, 2018 10:49
== END 2018-09-13 03:23 | disposition home or self-care (01) ==
LOC: M ED 01:07
DX: J44.1 Chronic obstructive pulmonary disease with (acute) exacerbation (principal); I10 Essential (primary) hypertension; E78.00 Pure hypercholesterolemia, unspecified; F11.11 Opioid abuse, in remission; F17.200 Nicotine dependence, unspecified, uncomplicated; Z86.19 Personal history of other infectious and parasitic diseases; Z88.8 Allergy status to other drugs, medicaments and biological substances; Z79.899 Other long term (current) drug therapy

== ENCOUNTER 2018-12-17 00:34 | Emergency (ER) | payer OTHER ==
[~2018-12-17] VITALS: Ht 182.9 cm; Wt 90.9 kg
[~2018-12-17 00:34] MED LIST changes: -BUPR300T34 PO; +BUPR300T92 PO; +DOXY100C37 PO; -TRAZ-160 PO; +TRAZ-252 PO
[2018-12-17 02:37] LABS: BASO % 0.6 % (0.0-1.0); EOS # 0.2 10^3/uL (0.0-0.50); EOS % 3.2 % (0.0-3.0); HEMATOCRIT 30.2 % (42.0-52.0); HEMOGLOBIN 9.8 g/dl (13.5-17.5); LYMPH # 1.3 10^3/uL (1.5-4.5); MEAN CORPUSCULAR HEMOGLOBIN 32.5 pg (27.0-33.0); MEAN CORPUSCULAR HGB CONC 32.5 g/dl (32.0-36.5); MONO # 0.5 10^3/uL (0.0-0.8); MONO % 8.7 % (0.0-5.0); PLATELET COUNT, AUTOMATED 134 10^3/uL (150-450); RED BLOOD COUNT 3.02 10^6/uL (4.30-6.10); WHITE BLOOD COUNT 6.2 10^3/uL (4.0-10.0)
[2018-12-17 03:04] LABS: ALBUMIN 2.9 GM/DL (3.2-5.2); ALT/SGPT 51 U/L (12-78); BILIRUBIN,TOTAL 0.7 MG/DL (0.2-1.0); BLOOD UREA NITROGEN 15 MG/DL (7-18); CARBON DIOXIDE LEVEL 24 MEQ/L (21-32); CHLORIDE LEVEL 105 MEQ/L (98-107); CREATININE FOR GFR 0.86 MG/DL (0.70-1.30); GLOMERULAR FILTRATION RATE > 60.0 (>56); GLUCOSE, FASTING 102 MG/DL (70-100); POTASSIUM SERUM 3.9 MEQ/L (3.5-5.1); SODIUM LEVEL 139 MEQ/L (136-145); TOTAL PROTEIN 6.3 GM/DL (6.4-8.2)
[2018-12-17] MEDS ORDERED: PERCOCET 5MG/325MG TAB PO ONE (03:30)
[2018-12-17 03:41] LABS: C REACTIVE PROTEIN QUANTITATIV 6.42 MG/DL (0.00-0.30)
[2018-12-17] MEDS ORDERED: PIPERACILLIN/TAZOBACTAM SOD 3.375 GM in D5W MINI-BAG PLUS 50 ML IV ONE (05:45)
[2018-12-17] MEDS: MORPHINE 4 MG/ML 1ML VIAL/SYRINGE (J2270) IV PRN ×2 (05:56→07:26)
[2018-12-17 07:51] VITALS: BP 139/86
--- NOTE | 2018-12-17 07:57 | REP ---
Clinical: Hip pain. Technique: Neutral and frog lateral views of the right hip. Findings: Evidence for prior hip replacement with orthopedic hardware in appropriate position. Osseous structures are intact and relatively normal. No acute fracture dislocation. No significant degenerative changes. Impression: Essentially normal right hip radiographs. Electronically Signed by Cristiano Trevino MD 12/17/2018 07:48 A
[2019-05-25] MEDS ORDERED: PERC5TAB12 PO ×3 (09:26→16:11)
[2019-05-25] MEDS ORDERED: PRED10TA2 PO ×3 (09:26→16:11)
[2019-05-25] MEDS ORDERED: MUCI1TAB16 PO ×2 (09:26→11:48)
[2019-05-25] MEDS ORDERED: mucomyst INH (09:26)
[2019-05-25] MEDS ORDERED: ACET20%4ML INH (11:48)
== END 2018-12-17 07:53 | disposition short-term general hospital (02) ==
LOC: M ED 00:34
DX: T84.51XA Infection and inflammatory reaction due to internal right hip prosthesis, initial encounter (principal); Y92.9 Unspecified place or not applicable; Y93.9 Activity, unspecified; R56.9 Unspecified convulsions; F10.239 Alcohol dependence with withdrawal, unspecified; Z79.899 Other long term (current) drug therapy; Z88.8 Allergy status to other drugs, medicaments and biological substances
CPT/HCPCS: 73502; 80053; 83605; 85025; 86140; 87040; 96365; 96375; 99285; J2270; J2543

== ENCOUNTER 2019-05-20 11:47 | Inpatient (IN) | payer OTHER ==
[~2019-05-20] VITALS: Ht 182.9 cm; Wt 99.7 kg
[~2019-05-20 11:47] MED LIST changes: +BUPR300T34 PO; -BUPR300T92 PO
[2019-05-20] MEDS ORDERED: METF500T13 PO (12:16)
[2019-05-20] MEDS ORDERED: D 10CHW PO (12:16)
[2019-05-20] MEDS ORDERED: DICL50TA2 PO (12:16)
[2019-05-20 13:04] LABS: BASO % 0.6 % (0.0-1.0); EOS # 0.2 10^3/uL (0.0-0.5); EOS % 2.5 % (0.0-3.0); HEMATOCRIT 38.4 % (42.0-52.0); LYMPH # 1.6 10^3/uL (1.5-5.0); LYMPH % 24.6 % (24.0-44.0); MEAN CORPUSCULAR HEMOGLOBIN 32.1 pg (27.0-33.0); MEAN CORPUSCULAR HGB CONC 33.9 g/dl (32.0-36.5); MEAN CORPUSCULAR VOLUME 94.8 fl (80.0-96.0); MONO # 0.7 10^3/uL (0.0-0.8); NEUTROPHILS # 3.9 10^3/uL (1.5-8.5); NEUTROPHILS % 60.8 % (36.0-66.0); RED BLOOD COUNT 4.05 10^6/uL (4.30-6.10); WHITE BLOOD COUNT 6.3 10^3/uL (4.0-10.0)
[2019-05-20 13:20] LABS: PLATELET COUNT, AUTOMATED 86 10^3/uL (150-450)
[2019-05-20 13:30] LABS: BLOOD UREA NITROGEN 8 MG/DL (7-18); CALCIUM LEVEL 8.7 MG/DL (8.5-10.1); CARBON DIOXIDE LEVEL 26 MEQ/L (21-32); CHLORIDE LEVEL 109 MEQ/L (98-107); CK-MB VALUE MASS < 1.0 NG/ML (<3.6); CPK CREATINE PHOSPHOKINASE 46 U/L (39-308); CREATININE FOR GFR 0.79 MG/DL (0.70-1.30); GLOMERULAR FILTRATION RATE > 60.0 (>56); GLUCOSE, FASTING 106 MG/DL (70-100); MB/CK RELATIVE INDEX 2.17 (< OR =4); POTASSIUM SERUM 4.1 MEQ/L (3.5-5.1); SODIUM LEVEL 141 MEQ/L (136-145); TROPONIN I < 0.02 NG/ML (< 0.10)
[2019-05-20] MEDS ORDERED: ISOVUE-370 76% 100ML VIAL (Q9967) As Ordered ONE (13:38)
--- NOTE | 2019-05-20 14:17 | REP ---
Clinical: Shortness of breath and hemoptysis. Technique: Axial contrast enhanced images from the thoracic inlet to the upper abdomen using 100 ml Isovue 370 intravenous contrast material with multiplanar re-formations. Comparison: 06/12/2016 Findings: Satisfactory enhancement of the pulmonary vasculature is achieved and no filling defects are identified to suggest pulmonary embolus. Further evaluation of the mediastinum demonstrates normal tortuous thoracic aorta without aneurysm or dissection. Heart and pericardium normal. The bilateral lung naranjo chronic scattered partially calcified pleural plaques and nodules along the right hemithorax are consistent with the previous history of talc pleurodesis and stable. No consolidation. No effusion. No pneumothorax. No significant adenopathy. Tracheobronchial tree is patent. Impression: No evidence for pulmonary embolus. No acute mediastinal or pleural parenchymal process. Chronic changes to the right hemithorax consistent with the given history of prior talc pleurodesis. Electronically Signed by Cristiano Trevino MD 05/20/2019 02:09 P
[2019-05-20] MEDS ORDERED: methylPREDNISolone INJ 125 MG/2 ML VIAL (J2930) IV ONE (14:30)
[2019-05-20] MEDS ORDERED: ALBUTEROL SULFATE 2.5 MG/0.5 ML INH NEB SOLN NEB ONE (14:30)
[2019-05-20] MEDS ORDERED: IPRATROPIUM 0.5MG/ALBUTEROL 2.5MG INH SOL UD 3ML (DUONEB)(J7620) NEB ONE (14:30)
[2019-05-20] MEDS ORDERED: ALBUTEROL SULFATE 2.5 MG/0.5 ML INH NEB SOLN NEB PRN (18:00)
--- NOTE | 2019-05-20 18:13 | ECGEPIP ---
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
[2019-05-20] MEDS ORDERED: GABA600T4 PO (18:26)
[2019-05-20] MEDS ORDERED: ROSU40TA4 PO (18:26)
[2019-05-20] MEDS ORDERED: ZYLO300T6 PO (18:26)
[2019-05-20] MEDS ORDERED: MIRT1TAB17 PO (18:26)
--- NOTE | 2019-05-20 18:43 | HPE ---
DATE OF ADMISSION: 05/20/2019 PRIMARY CARE PROVIDER: [facility] [place]. CHIEF COMPLAINT: Cough and fever for five days plus increasing shortness of breath. HISTORY OF PRESENT ILLNESS: Bharathi is a 53-year-old of the [employer] who is presenting to the emergency room (ER) today for cough and fever for about five days. He went to the urgent care, and they told him he had pneumonia. He had increasing shortness of breath, so he was referred here to the emergency department at [facility]. He says that over the last five days he has had increasing shortness of breath and it feels like he can not breathe. He normally does cough because he is a smoker. However, his sputum production has gone from clear and white to green, and if he coughs really hard, sometimes it will have some red specks in it. He states that he used to be a smoker and he quit within the last few months. However, his still does smoke at home. His past medical history is significant for bullous emphysema and spontaneous pneumothorax, for which he has had talc pleurodesis for. He denies orthopnea and wheezes. He says that he could walk all of his property for hunting about two weeks ago. However, he can barely walk 50 feet without stopping and gasping for air. He denies any chest pain or leg swelling. PAST MEDICAL HISTORY: 1. Bullous emphysema with history of spontaneous pneumothorax, status post talc pleurodesis. 2. Hepatitis C from blood transfusion when he was in the , status post treatment with interferon, cured. 3. Type 2 diabetes mellitus. 4. Hypertension. 5. Hyperlipidemia. 6. Posttraumatic stress disorder. HOME MEDICATIONS: - trazodone 150 mg at bedtime - DuoNebs every six hours as needed - albuterol inhaler every four hours as needed - budesonide 4.5 two puffs twice a day - baclofen 20 mg by mouth three times a day as needed - bupropion 300 mg in the morning - vitamin D 1000 units daily - metformin extended release 500 mg twice a day with breakfast and supper - metoprolol succinate 50 mg twice a day for hypertension - mirtazapine 40 mg by mouth daily - multivitamin - gabapentin 1200 mg three times a day - prazosin 6 mg at bedtime - Seroquel 50 mg at noon and nighttime - Crestor 40 mg by mouth daily - tamsulosin 0.4 mg by mouth daily - Spiriva inhaler at night PAST SURGICAL HISTORY: 1. Dorsal column stimulator. 2. Talc pleurodesis. 3. Right hip surgery. ALLERGIES: None. 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 He has been to [place], [place], [place], [place], [place], [place], and [place] as well as all over the [place]. He no longer smokes but was a previously heavy smoker. He also used to drink alcohol heavily but no longer does. He limits his alcohol to weekends, where occasionally he will have a social drink. He lives at home with his . FAMILY HISTORY: He is adopted and does not know his family history. REVIEW OF SYSTEMS: CONSTITUTIONAL: Positive for subjective fevers, maximum temperature (T-max) may have been between 100 and 101 at home. Denies chills, weight changes or night sweats. EYES: Denies visual changes, headaches, double vision, scotomas, floaters or feeling like a curtain got pulled down. EAR, NOSE, AND THROAT: Denies runny nose, epistaxis, sinus pain, stuffy ears, tinnitus, gingival bleeding or odynophagia. CARDIOVASCULAR: Denies chest pain, shortness of breath, paroxysmal nocturnal dyspnea (PND), orthopnea, edema or palpitations. RESPIRATORY: Positive for cough with sputum production and mild/minimal hemoptysis from coughing really hard. Denies wheezes, but does admit to exercise intolerance. GASTROINTESTINAL: Negative for abdominal pain, unintentional weight loss, difficulty swallowing, nausea, vomiting, constipation, obstipation, hematemesis, hematochezia, melena or tenesmus. Positive for chronic diarrhea. GENITOURINARY: Denies incontinence, dysuria, hesitancy or dribbling. MUSCULOSKELETAL: Positive for chronic pain, status dorsal column stimulator. Denies any new stiffness, joint swelling or decreased range of motion. INTEGUMENTARY: Denies any new pruritus, rashes, striae, lesions or wounds. NEUROLOGIC: Denies any changes to sight, smell, hearing, taste, seizures, headaches, paresthesias, or anesthesias. PSYCHIATRIC: Positive for posttraumatic stress disorder (PTSD) as well as some depression and anxiety with difficulty sleeping. Denies any new paranoia, anhedonia or episodes of tristen. ENDOCRINE: Positive for history of diabetes. Denies any tremor, palpitations, visual disturbances, constipation, dry skin, polydipsia or polyphagia. HEMATOLOGIC: Denies any anemia, purpura or petechiae. LYMPHATIC: Denies any new lumps or bumps anywhere. PHYSICAL EXAMINATION: VITAL SIGNS: Temperature 97.8, pulse 103 and regular, respiratory rate 24, blood pressure 131/93, 95% on room air. GENERAL: This is a well-nourished, well-developed, middle-aged female who appears slightly older than his stated age but is pleasant and cooperative. HEENT: Mucous membranes are moist. Conjunctivae are without pallor. Head is atraumatic, normocephalic. The patient has his own teeth and dentition is fair. There is tobacco staining on the front two teeth. NECK: Supple without lymphadenopathy or jugular venous distention (JVD). No thyromegaly. No carotid bruits. RESPIRATORY: Increased anteroposterior (AP) diameter with diminished breath sounds throughout with expiratory wheezes. He has diminished diaphragmatic motion bilaterally. No evidence of dullness to percussion. HEART: Somewhat distant heart sounds, mildly tachycardiac. No murmurs, gallops or rubs. Rhythm is regular. ABDOMEN: Soft with some tenderness to palpation in the epigastric area where he does have a hernia. Normoactive bowel sounds. EXTREMITIES: No clubbing, cyanosis or edema. Capillary refill is less than two seconds bilaterally in all four extremities. NEUROLOGIC: Muscle strength 5/5 throughout. Sensation is intact. Cranial nerves II-XII grossly intact. No focal deficits are noted. PSYCHIATRIC: Affect is full. He answers questions appropriately. No psychomotor agitation is noted. LABORATORY DATA: CBC: WBC 6.3, hemoglobin 13.1, hematocrit 38.4, platelets 86. Differential: Neutrophils 61%, lymphocytes 25%, monocytes 11%. CHEMISTRY: Sodium 141, potassium 4.1, chloride 109, carbon dioxide 26, BUN 8, creatinine 0.79, fasting glucose 106, lactic acid 1.8, calcium 8.7, total creatinine kinase 46, CK-MB less than 1. Troponin is less than 0.02. Microbiology: Respiratory panel negative. Blood culture times one pending. IMAGING STUDIES: CT angiography of the chest: No evidence for pulmonary embolus. No acute mediastinal or pleural parenchymal process. No infiltrates. Chronic changes to the right hemithorax consistent with given history of prior talc pleurodesis. ASSESSMENT: This is a 53-year-old male with a past medical history significant for bullous emphysema, chronic obstructive pulmonary disease (COPD) and spontaneous pneumothorax, status post pleurodesis who is presenting with what appears to be a COPD exacerbation. PLAN: 1. Acute exacerbation of chronic obstructive pulmonary disease (COPD) We will admit to the floor with routine laboratories and orders as well as steroids and aggressive pulmonary toilet. We will give him nebulizers and breathing treatments and maintain his saturation between 88% and 92%. 2. Diabetes mellitus. We will start him on basal insulin as steroids given for his COPD will most likely make him hyperglycemic. He will have consistent-carbohydrate diet as well as fingersticks in the morning time and nighttime. 3. Posttraumatic stress disorder (PTSD). Continue with his home mirtazapine, prazosin, Seroquel, and bupropion. 4. Chronic pain. Continue with the patient's gabapentin and baclofen with Tylenol as needed. 5. Benign prostatic hypertrophy (BPH). Continue tamsulosin. 6. Hyperlipidemia. Continue Crestor. 7. Hypertension. Continue metoprolol. The patient is a full code. DISPOSITION: Admit to the medical/surgical floor inpatient as we expect more than a two-midnight stay. I, Nitza Jaimes, have independently examined this patient and performed my own physical exam, as well as reviewed the documentation and edited where necessary. I have discussed in detail with the resident / student the findings and plan of treatment as documented by the resident / student and edited their note. I agree with their findings and treatment plan and have edited their documentation. I will continue to follow the patient during this hospital stay. DARRON
[2019-05-20 18:45] VITALS: BP 128/97
[2019-05-20] MEDS ORDERED: NAPROXEN 250 MG TAB PO PRN (19:00)
[2019-05-20] MEDS: IPRATROPIUM 0.5MG/ALBUTEROL 2.5MG INH SOL UD 3ML (DUONEB)(J7620) NEB SCH (19:47)
[2019-05-20] MEDS: ADVAIR HFA 230/21MCG INHALER INH SCH (19:47)
[2019-05-20] MEDS ORDERED: metFORMIN (GLUCOPHAGE) 500 MG TAB PO SCH (21:00)
[2019-05-20] MEDS ORDERED: LEVEMIR (INSULIN DETEMIR) 1 UNITS/0.01ML SC SCH (21:00)
[2019-05-20 21:01] VITALS: BP 135/96
[2019-05-20] MEDS: ACETAMINOPHEN TAB 650MG DOSE (2X325MG) PO PRN (21:18)
[2019-05-20] MEDS: guaiFENesin ER 600 MG TAB PO SCH (21:18)
[2019-05-20] MEDS: MIRTAZAPINE 15 MG TAB PO SCH (21:19)
[2019-05-20] MEDS: methylPREDNISolone INJ 125 MG/2 ML VIAL (J2930) IV SCH (21:19)
[2019-05-20] MEDS: GABAPENTIN 300 MG CAP PO SCH (21:19)
[2019-05-20] MEDS: traZODone 50 MG TAB PO SCH (21:19)
[2019-05-20] MEDS: QUEtiapine FUMARATE 50 MG TAB PO SCH (21:19)
[2019-05-20] MEDS: buPROPion **XL** TABLET 150MG (WELLBUTRIN XL) PO SCH (21:20)
[2019-05-20] MEDS: METOPROLOL SUCC (TopROL XL) 50MG **XL** TAB PO SCH (21:20)
[2019-05-20] MEDS: PRAZOSIN 1 MG CAP PO SCH (21:21)
[2019-05-21] MEDS: IPRATROPIUM 0.5MG/ALBUTEROL 2.5MG INH SOL UD 3ML (DUONEB)(J7620) NEB SCH ×4 (00:36→19:30)
[2019-05-21] MEDS: methylPREDNISolone INJ 125 MG/2 ML VIAL (J2930) IV SCH ×2 (06:04→17:19)
[2019-05-21 06:05] VITALS: BP 133/94
[2019-05-21] MEDS: ADVAIR HFA 230/21MCG INHALER INH SCH ×2 (07:48→19:31)
[2019-05-21 07:49] LABS: HEMATOCRIT 39.3 % (42.0-52.0); HEMOGLOBIN 12.6 g/dl (13.5-17.5); MEAN CORPUSCULAR HEMOGLOBIN 31.1 pg (27.0-33.0); MEAN CORPUSCULAR HGB CONC 32.1 g/dl (32.0-36.5); RED BLOOD COUNT 4.05 10^6/uL (4.30-6.10); WHITE BLOOD COUNT 7.7 10^3/uL (4.0-10.0)
[2019-05-21 08:00] LABS: CALCIUM LEVEL 8.4 MG/DL (8.5-10.1); CREATININE FOR GFR 1.36 MG/DL (0.70-1.30); GLOMERULAR FILTRATION RATE 58.6 (>56); MAGNESIUM LEVEL 1.9 MG/DL (1.8-2.4); POTASSIUM SERUM 3.8 MEQ/L (3.5-5.1)
[2019-05-21] MEDS ORDERED: TIOTROPIUM INHALER/CAPSULE (SPIRIVA) INH SCH (08:00)
[2019-05-21] MEDS ORDERED: DEXTROSE 50% 50 ML SYRINGE IV PRN (08:15)
[2019-05-21] MEDS ORDERED: GLUCAGON FOR INJ 1 MG VIAL (J1610) SC PRN (08:15)
[2019-05-21] MEDS ORDERED: GLUCOSE 4 GM CHEW TABLET PO PRN (08:15)
[2019-05-21 08:24] LABS: PLATELET COUNT, AUTOMATED 71 10^3/uL (150-450)
[2019-05-21] MEDS: allopurinoL 300 MG TAB PO SCH (09:15)
[2019-05-21] MEDS: PANTOPRAZOLE 40MG TAB (PROTONIX) PO SCH (09:15)
[2019-05-21] MEDS: ROSUVASTATIN 10 MG TAB (CRESTOR) PO SCH (09:15)
[2019-05-21] MEDS: TAMSULOSIN 0.4 MG CAP PO SCH (09:15)
[2019-05-21] MEDS: LEVEMIR (INSULIN DETEMIR) 1 UNITS/0.01ML SC SCH ×2 (09:15→20:18)
[2019-05-21] MEDS: METOPROLOL SUCC (TopROL XL) 50MG **XL** TAB PO SCH ×2 (09:15→20:17)
[2019-05-21] MEDS: VITAMIN D 1,000 INTERNATIONAL UNITS TABLET PO SCH (09:15)
[2019-05-21] MEDS: guaiFENesin ER 600 MG TAB PO SCH ×2 (09:16→20:16)
[2019-05-21] MEDS: GABAPENTIN 300 MG CAP PO SCH ×3 (09:16→20:16)
[2019-05-21] MEDS: ACETAMINOPHEN TAB 650MG DOSE (2X325MG) PO PRN ×2 (09:22→17:30)
[2019-05-21] MEDS: QUEtiapine FUMARATE 50 MG TAB PO SCH ×2 (12:37→20:15)
[2019-05-21] MEDS: HumaLOG INSULIN (NovoLOG) PER UNIT SC SCH ×3 (12:37→20:19)
[2019-05-21 14:00] VITALS: BP 110/77
--- NOTE | 2019-05-21 15:40 | IPNPDOC ---
Text Note Date of Service The patient was seen on 05/21/19. NOTE Subjective: Patient is seen at bedside in [address] [place]. He states that his breathing feels much better. He continues to cough, and now is starting to bring up mucus that is thick and green. He thinks that he needs additional assistance with bringing it up, and would like Mucinex as well as to try an Acapella device. He has been up and moving around, mostly to the chair or to the bathroom. He does not think he can walk around the floor without getting short of breath. He does think he is a little dehydrated, as he has chronic diarrhea, and as a hard time drinking water due to his difficulty breathing. He denies fevers, chills, nausea, vomiting, diarrhea, or leg swelling. Objective: Vitals: See below General: This is a well-nourished, well-developed, middle-aged female who appears slightly older than his stated age; is pleasant and cooperative. HEENT: Mucous membranes are moist. Conjunctivae are without pallor. Neck: Supple without lymphadenopathy or jugular venous distention (JVD). No thyromegaly. No carotid bruits. Lungs: Increased anteroposterior (AP) diameter with inspiratory and expiratory wheezes throughout. He has diminished diaphragmatic motion bilaterally. No evidence of dullness to percussion. Heart: Somewhat distant heart sounds, mildly tachycardiac. No murmurs, gallops or rubs. Rhythm is regular. Abdomen: Soft with some tenderness to palpation in the epigastric area where he does have a hernia. Normoactive bowel sounds. Extremities: No clubbing, cyanosis or edema. Neuro: Muscle strength 5/5 throughout. Sensation is intact. Cranial nerves II-XII grossly intact. No focal deficits are noted. Psych: Affect is full. He answers questions appropriately. ASSESSMENT: This is a 53-year-old male with a past medical history significant for bullous emphysema, chronic obstructive pulmonary disease (COPD) and spontaneous pneumothorax, status post pleurodesis who is presenting with what appears to be a COPD exacerbation. Hospital day #2, steroids day #2 PLAN: 1. Acute exacerbation of chronic obstructive pulmonary disease (COPD). Continue with steroids (day #2) and aggressive pulmonary toilet. Continue nebulizers and breathing treatments, and maintain his saturation between 88% and 92%. 2. Diabetes mellitus. Continue with basal insulin, with sliding scale before meals and daily at bedtime. Continue with consistent carbohydrate diet. On metformin on hold. 3. Posttraumatic stress disorder (PTSD). Continue with his home mirtazapine, prazosin, Seroquel, and bupropion. 4. Chronic pain. Continue with the patient's gabapentin and baclofen with Tylenol as needed. 5. Benign prostatic hypertrophy (BPH). Continue tamsulosin. 6. Hyperlipidemia. Continue Crestor. 7. Hypertension. Continue metoprolol. 8. Elevated creatinine. Patient states that he feels a little dehydrated, as he does have chronic diarrhea and with his breathing it is difficult for him to drink water. We will start some gentle IV hydration with normal saline. The patient is a FULL CODE. DISPOSITION: Potential discharge in 48-72 hours VS,Aldo, I+O VS, Aldo, I+O Laboratory Tests 05/21/19 07:09 Vital Signs Date Time Temp Pulse Resp B/P (MAP) Pulse Ox O2 Delivery O2 Flow Rate FiO2 05/21/19 09:15 102 133/94 05/21/19 06:05 97.4 19 94 Room Air I&O- Last 24 Hours up to 6 AM 05/21/19 06:00 Intake Total 900 ml Output Total 0 ml Balance 900 ml GME ATTESTATION GME ATTESTATION My faculty preceptor for this patient encounter was physically present during the encounter and was fully available. All aspects of the patient interview, examination, medical decision making process, and medical care plan development were reviewed and approved by the faculty preceptor. The faculty preceptor is aware and concurs with the plan as stated in the body of this note and will attest to such by his/her cosignature. ATTENDING NOTE I, Nitza Sommer, have independently examined this patient and performed my own physical exam, as well as reviewed the documentation and edited where necessary. I have discussed in detail with the resident / student the findings and plan of treatment as documented by the resident / student and edited their note. I agree with their findings and treatment plan and have edited their documentation. I will continue to follow the patient during this hospital stay. ADRIANNE PRECIADO D.O. May 21, 2019 15:40 NITZA SOMMER MD May 21, 2019 17:02
[2019-05-21] MEDS: NS 1,000 ML IV SCH (16:17)
[2019-05-21 19:56] VITALS: BP 110/77
[2019-05-21] MEDS: traZODone 50 MG TAB PO SCH (20:16)
[2019-05-21] MEDS: MIRTAZAPINE 15 MG TAB PO SCH (20:17)
[2019-05-21] MEDS: buPROPion **XL** TABLET 150MG (WELLBUTRIN XL) PO SCH (20:17)
[2019-05-21] MEDS: PRAZOSIN 1 MG CAP PO SCH (20:17)
[2019-05-22] MEDS: IPRATROPIUM 0.5MG/ALBUTEROL 2.5MG INH SOL UD 3ML (DUONEB)(J7620) NEB SCH ×5 (01:38→20:35)
[2019-05-22] MEDS: NS 1,000 ML IV SCH (02:23)
[2019-05-22] MEDS: ACETAMINOPHEN TAB 650MG DOSE (2X325MG) PO PRN ×2 (03:45→17:00)
[2019-05-22 05:45] VITALS: BP 116/77
[2019-05-22] MEDS ORDERED: NORCO, ANEXSIA 5/325MG TABLET (HYDROcodone/ACETAMINOPHEN) PO ONE (06:15)
[2019-05-22 06:19] LABS: HEMATOCRIT 34.8 % (42.0-52.0); MEAN CORPUSCULAR HEMOGLOBIN 31.3 pg (27.0-33.0); MEAN CORPUSCULAR HGB CONC 31.6 g/dl (32.0-36.5); MEAN CORPUSCULAR VOLUME 99.1 fl (80.0-96.0); RED BLOOD COUNT 3.51 10^6/uL (4.30-6.10); WHITE BLOOD COUNT 6.9 10^3/uL (4.0-10.0)
[2019-05-22] MEDS: methylPREDNISolone INJ 125 MG/2 ML VIAL (J2930) IV SCH (06:23)
[2019-05-22 06:27] LABS: PLATELET COUNT, AUTOMATED 65 10^3/uL (150-450)
[2019-05-22 06:48] LABS: BLOOD UREA NITROGEN 17 MG/DL (7-18); CARBON DIOXIDE LEVEL 21 MEQ/L (21-32); CHLORIDE LEVEL 106 MEQ/L (98-107); CREATININE FOR GFR 1.02 MG/DL (0.70-1.30); GLOMERULAR FILTRATION RATE > 60.0 (>56); GLUCOSE, FASTING 372 MG/DL (70-100); POTASSIUM SERUM 4.3 MEQ/L (3.5-5.1); SODIUM LEVEL 136 MEQ/L (136-145)
--- NOTE | 2019-05-22 06:51 | IPNPDOC ---
Text Note Date of Service The patient was seen on 05/22/19. NOTE Subjective: Patient is seen at bedside in 5 [place]. This morning he developed sudden onset right chest pain. Chest x-ray was done and was negative for pneumothorax. He was given [place], which he states does not relieve his pain. He is afraid to cough up mucus he causes of the right-sided chest pain, which he has had before and states that it is because of his talc pleurodesis and the pulling of the diaphragm when he coughs. He denies any palpitations or left-sided chest pain. He denies fevers, chills, nausea, vomiting, diarrhea, or leg swelling. Objective: Vitals: See below General: This is a well-nourished, well-developed, middle-aged female who appears slightly older than his stated age; is pleasant and cooperative. HEENT: Mucous membranes are moist. Conjunctivae are without pallor. Neck: Supple without lymphadenopathy or jugular venous distention (JVD). No thyromegaly. No carotid bruits. Chest: Right-sided chest pain or producible with palpation of the right-sided ribs 6 through 9 between the midclavicular and midaxillary lines. Lungs: Increased anteroposterior (AP) diameter. Lungs sound relatively clear; no adventitious breath sounds are appreciated, though he does have a diminished respiratory effort. He has diminished diaphragmatic motion bilaterally. No evidence of dullness to percussion. Heart: Somewhat distant heart sounds, mildly tachycardiac. No murmurs, gallops or rubs. Rhythm is regular. Abdomen: Soft with some tenderness to palpation in the epigastric area where he does have a hernia. Normoactive bowel sounds. Extremities: No clubbing, cyanosis or edema. Neuro: Muscle strength 5/5 throughout. Sensation is intact. Cranial nerves II-XII grossly intact. No focal deficits are noted. Psych: Affect is full. He answers questions appropriately. ASSESSMENT: This is a 53-year-old male with a past medical history significant for bullous emphysema, chronic obstructive pulmonary disease (COPD) and spontaneous pneumothorax, status post pleurodesis who is presenting with what appears to be a COPD exacerbation. Hospital day #3, steroids day #3 PLAN: 1. Acute exacerbation of chronic obstructive pulmonary disease (COPD). Continue with steroids (day #3) and aggressive pulmonary toilet. Continue nebulizers and breathing treatments, and maintain his saturation between 88% and 92%. 2. Diabetes mellitus. Continue with basal insulin, with sliding scale before meals and daily at bedtime. Continue with consistent carbohydrate diet. Home metformin on hold. 3. Posttraumatic stress disorder (PTSD). Continue with his home mirtazapine, prazosin, Seroquel, and bupropion. 4. Chronic pain, with right-sided chest pain. Continue home gabapentin. He does not use the baclofen because it doesn't work. Percocet has been ordered for pain. 5. Benign prostatic hypertrophy (BPH). Continue tamsulosin. 6. Hyperlipidemia. Continue Crestor. 7. Hypertension. Continue metoprolol. 8. Elevated creatinine. Patient stated he was dehydrated. Improved with some gentle IV hydration with normal saline. The patient is a FULL CODE. DISPOSITION: Potential discharge home in 24-48 hours VS,Fishbone, I+O VS, Fishbone, I+O Laboratory Tests 05/21/19 07:09 05/22/19 05:53 Vital Signs Date Time Temp Pulse Resp B/P (MAP) Pulse Ox O2 Delivery O2 Flow Rate FiO2 05/22/19 06:25 20 05/22/19 05:45 97.8 95 116/77 (90) 95 Room Air I&O- Last 24 Hours up to 6 AM 05/22/19 06:00 Intake Total 2750 ml Balance 2750 ml GME ATTESTATION GME ATTESTATION My faculty preceptor for this patient encounter was physically present during the encounter and was fully available. All aspects of the patient interview, examination, medical decision making process, and medical care plan development were reviewed and approved by the faculty preceptor. The faculty preceptor is aware and concurs with the plan as stated in the body of this note and will attest to such by his/her cosignature. ATTENDING NOTE I, Nitza Sommer, have independently examined this patient and performed my own physical exam, as well as reviewed the documentation and edited where necessary. I have discussed in detail with the resident / student the findings and plan of treatment as documented by the resident / student and edited their note. I agree with their findings and treatment plan and have edited their documentation. I will continue to follow the patient during this hospital stay. ADRIANNE PRECIADO D.O. May 22, 2019 06:51 NITZA SOMMER MD May 22, 2019 15:39
[2019-05-22] MEDS ORDERED: KETOROLAC 30 MG/ML VIAL (J1885) IV ONE (08:15)
[2019-05-22] MEDS: ADVAIR HFA 230/21MCG INHALER INH SCH ×2 (08:54→20:29)
[2019-05-22] MEDS: LEVEMIR (INSULIN DETEMIR) 1 UNITS/0.01ML SC SCH ×2 (08:56→20:25)
[2019-05-22] MEDS: HumaLOG INSULIN (NovoLOG) PER UNIT SC SCH ×4 (08:56→20:26)
[2019-05-22] MEDS: GABAPENTIN 300 MG CAP PO SCH ×3 (08:57→20:23)
[2019-05-22] MEDS: VITAMIN D 1,000 INTERNATIONAL UNITS TABLET PO SCH (08:57)
[2019-05-22] MEDS: allopurinoL 300 MG TAB PO SCH (08:57)
[2019-05-22] MEDS: ROSUVASTATIN 10 MG TAB (CRESTOR) PO SCH (08:57)
[2019-05-22] MEDS: guaiFENesin ER 600 MG TAB PO SCH ×2 (08:57→20:23)
[2019-05-22] MEDS: PANTOPRAZOLE 40MG TAB (PROTONIX) PO SCH (08:57)
[2019-05-22] MEDS: TAMSULOSIN 0.4 MG CAP PO SCH (08:58)
[2019-05-22] MEDS: METOPROLOL SUCC (TopROL XL) 50MG **XL** TAB PO SCH ×2 (08:58→20:24)
--- NOTE | 2019-05-22 09:26 | REP ---
CHEST PA AND LATERAL: 05/22/2019. COMPARISON: CT angiogram 05/20/2019, chest x-ray 09/13/2018. CLINICAL HISTORY: Right-sided chest pain, history of pneumothorax. Prior talc pleurodesis. FINDINGS: Two views show a dorsal column stimulator leads in the mid thoracic neural canal, unchanged. Lungs marginally adequate in the degree of inflation. Some blunting of the left CP angle suggesting a small left effusion. No definite pneumothorax. Underlying fibrosis and COPD with bilateral pleural plaques. Heart size unchanged. No timo edema. Tortuous calcified ectatic aorta, unchanged. Airway intact. Pulmonary arteries mildly prominent, consistent with pulmonary artery hypertension. Some venous hypertension suggested without timo edema. IMPRESSION: 1. Small right pleural effusion with bilateral pleural plaques, tortuous calcified aorta, underlying fibrosis, and pulmonary artery hypertension. 2. No pneumothorax or pneumomediastinum. No definite acute infiltrate. No timo edema. Electronically Signed by Dayday Lopez MD 05/22/2019 07:44 P
[2019-05-22] MEDS ORDERED: PERCOCET 5MG/325MG TAB PO PRN (12:15)
[2019-05-22] MEDS: QUEtiapine FUMARATE 50 MG TAB PO SCH ×2 (12:49→20:24)
[2019-05-22] MEDS: PERCOCET 5MG/325MG TAB PO PRN ×2 (12:50→20:25)
[2019-05-22 19:50] VITALS: BP 117/80
[2019-05-22 19:53] VITALS: BP 117/80
[2019-05-22] MEDS: traZODone 50 MG TAB PO SCH (20:23)
[2019-05-22] MEDS: MIRTAZAPINE 15 MG TAB PO SCH (20:23)
[2019-05-22] MEDS: PRAZOSIN 1 MG CAP PO SCH (20:24)
[2019-05-22] MEDS: buPROPion **XL** TABLET 150MG (WELLBUTRIN XL) PO SCH (20:24)
[2019-05-23] MEDS: IPRATROPIUM 0.5MG/ALBUTEROL 2.5MG INH SOL UD 3ML (DUONEB)(J7620) NEB SCH ×4 (01:34→20:31)
[2019-05-23] MEDS: ACETAMINOPHEN TAB 650MG DOSE (2X325MG) PO PRN (01:42)
[2019-05-23] MEDS: PERCOCET 5MG/325MG TAB PO PRN ×3 (03:25→21:16)
[2019-05-23 06:00] VITALS: BP 136/94
[2019-05-23 06:42] LABS: HEMATOCRIT 32.4 % (42.0-52.0); HEMOGLOBIN 10.7 g/dl (13.5-17.5); MEAN CORPUSCULAR HEMOGLOBIN 31.8 pg (27.0-33.0); MEAN CORPUSCULAR VOLUME 96.1 fl (80.0-96.0); RED BLOOD COUNT 3.37 10^6/uL (4.30-6.10); WHITE BLOOD COUNT 5.3 10^3/uL (4.0-10.0)
[2019-05-23 06:59] LABS: PLATELET COUNT, AUTOMATED 65 10^3/uL (150-450)
[2019-05-23 07:05] LABS: BLOOD UREA NITROGEN 20 MG/DL (7-18); CALCIUM LEVEL 7.8 MG/DL (8.5-10.1); CARBON DIOXIDE LEVEL 25 MEQ/L (21-32); CHLORIDE LEVEL 107 MEQ/L (98-107); CREATININE FOR GFR 0.94 MG/DL (0.70-1.30); GLOMERULAR FILTRATION RATE > 60.0 (>56); GLUCOSE, FASTING 176 MG/DL (70-100); POTASSIUM SERUM 3.6 MEQ/L (3.5-5.1); SODIUM LEVEL 138 MEQ/L (136-145)
[2019-05-23] MEDS: ADVAIR HFA 230/21MCG INHALER INH SCH ×2 (08:17→20:31)
[2019-05-23] MEDS: LEVEMIR (INSULIN DETEMIR) 1 UNITS/0.01ML SC SCH ×2 (08:40→21:12)
[2019-05-23] MEDS: HumaLOG INSULIN (NovoLOG) PER UNIT SC SCH ×4 (08:40→21:12)
[2019-05-23] MEDS: TAMSULOSIN 0.4 MG CAP PO SCH (08:41)
[2019-05-23] MEDS: guaiFENesin ER 600 MG TAB PO SCH ×2 (08:41→21:14)
[2019-05-23] MEDS: VITAMIN D 1,000 INTERNATIONAL UNITS TABLET PO SCH (08:41)
[2019-05-23] MEDS: GABAPENTIN 300 MG CAP PO SCH ×3 (08:41→21:13)
[2019-05-23] MEDS: METOPROLOL SUCC (TopROL XL) 50MG **XL** TAB PO SCH ×2 (08:43→21:15)
[2019-05-23] MEDS: ROSUVASTATIN 10 MG TAB (CRESTOR) PO SCH (08:54)
[2019-05-23] MEDS: allopurinoL 300 MG TAB PO SCH (08:54)
[2019-05-23] MEDS: PANTOPRAZOLE 40MG TAB (PROTONIX) PO SCH (08:54)
[2019-05-23] MEDS ORDERED: methylPREDNISolone INJ 125 MG/2 ML VIAL (J2930) IV SCH (09:00)
[2019-05-23] MEDS: ACETYLCYSTEINE 10% 30 ML VIAL INH SCH ×2 (11:24→20:31)
[2019-05-23] MEDS: QUEtiapine FUMARATE 50 MG TAB PO SCH ×2 (12:19→21:15)
[2019-05-23 14:00] VITALS: BP 148/95
--- NOTE | 2019-05-23 14:43 | IPNPDOC ---
Text Note Date of Service The patient was seen on 05/23/19. NOTE Subjective: Patient was seen and examined at the bedside. Patient has reported that his breathing is doing better. However, he still does report right-sided chest pain upon deep inspiration. Denies any significant expectoration of sputum. He denies nausea, vomiting, abdominal pain, diarrhea, or urinary discomfort. Objective: Vitals (See below) General: Lying in bed, no acute distress, comfortable, AAOx3 HEENT: NC, AT CVS: RRR, +S1S2 Lungs: Fair air entry b/l, auscultation does not reveal any rhonchi, rales or wheezing Abdomen: Soft, ND, NT Extremities: - Edema, - Calf tenderness Assessment and plan: Shortness of breath - likely 2/2 acute exacerbation of COPD - Clinically has reported improvement of shortness of breath - Still reports a cough; that he is unable to expectorate - Physical reveals improved aeration bilaterally - CTA Chest 05/20: No evidence for pulmonary embolus. No acute mediastinal or pleural parenchymal process. Chronic changes to the right hemithorax consistent with the given history of prior talc pleurodesis. - c/w inhaled therapy - Will DC solumedrol, will start Prednisone - we'll continue prednisone taper as an outpatient - Continue with Mucinex; added N-acetylcysteine and chest PT to help improve expectoration NIDM2 - Patient's metformin has been placed on hold - Basal coverage with Levemir has been added, given corticosteroid use - c/w ISS and Levemir Chronic pain - Patient reports that his right-sided chest pain has become uncontrolled - Patient was started on oxycodone yesterday morning; he is noted that his pain has improved slightly - s/p dorsal column stimulator - c/w Gabapentin - Patient follows with pain management as an outpatient Anxiety / PTSD - c/w Trazodone, Quetiapine, Mirtazapine, Bupropion BPH - c/w Tamsulosin, Prazosin DLP - c/w Rosuvastatin HTN - c/w Metoprolol s/p Elevated Creatinine - Creatinine has approached baseline - s/p IV fluid hydration GERD - c/w Protonix DVT prophylaxis - c/w TEDs / Sequentials (re: Hemoptysis) Disposition: - Potential discharge within next 24 hours VS,Edbone, I+O VS, Fishbone, I+O Laboratory Tests 05/23/19 06:09 Vital Signs Date Time Temp Pulse Resp B/P (MAP) Pulse Ox O2 Delivery O2 Flow Rate FiO2 05/23/19 10:03 18 05/23/19 09:33 Room Air 05/23/19 08:43 86 133/91 05/23/19 06:00 97.8 96 I&O- Last 24 Hours up to 6 AM 05/23/19 06:00 Intake Total 1980 ml Balance 1980 ml HELENE SOMMER MD May 23, 2019 14:43
[2019-05-23] MEDS: predniSONE 20 MG TAB PO SCH (14:57)
[2019-05-23 19:59] VITALS: BP 151/97
[2019-05-23] MEDS: buPROPion **XL** TABLET 150MG (WELLBUTRIN XL) PO SCH (21:13)
[2019-05-23] MEDS: PRAZOSIN 1 MG CAP PO SCH (21:14)
[2019-05-23] MEDS: traZODone 50 MG TAB PO SCH (21:14)
[2019-05-23] MEDS: MIRTAZAPINE 15 MG TAB PO SCH (21:15)
[2019-05-24] MEDS: IPRATROPIUM 0.5MG/ALBUTEROL 2.5MG INH SOL UD 3ML (DUONEB)(J7620) NEB SCH ×2 (02:48→08:36)
[2019-05-24 05:07] VITALS: BP 148/97
[2019-05-24 06:46] LABS: HEMATOCRIT 33.1 % (42.0-52.0); HEMOGLOBIN 10.8 g/dl (13.5-17.5); MEAN CORPUSCULAR HEMOGLOBIN 31.1 pg (27.0-33.0); MEAN CORPUSCULAR HGB CONC 32.6 g/dl (32.0-36.5); MEAN CORPUSCULAR VOLUME 95.4 fl (80.0-96.0); RED BLOOD COUNT 3.47 10^6/uL (4.30-6.10); WHITE BLOOD COUNT 5.5 10^3/uL (4.0-10.0)
[2019-05-24 06:48] LABS: PLATELET COUNT, AUTOMATED 64 10^3/uL (150-450)
[2019-05-24 07:07] LABS: BLOOD UREA NITROGEN 16 MG/DL (7-18); CALCIUM LEVEL 8.1 MG/DL (8.5-10.1); CARBON DIOXIDE LEVEL 25 MEQ/L (21-32); CHLORIDE LEVEL 105 MEQ/L (98-107); CREATININE FOR GFR 0.86 MG/DL (0.70-1.30); GLOMERULAR FILTRATION RATE > 60.0 (>56); GLUCOSE, FASTING 221 MG/DL (70-100); POTASSIUM SERUM 3.9 MEQ/L (3.5-5.1); SODIUM LEVEL 137 MEQ/L (136-145)
[2019-05-24] MEDS: ADVAIR HFA 230/21MCG INHALER INH SCH (08:00)
[2019-05-24] MEDS: PANTOPRAZOLE 40MG TAB (PROTONIX) PO SCH (08:08)
[2019-05-24] MEDS: predniSONE 20 MG TAB PO SCH (08:08)
[2019-05-24] MEDS: HumaLOG INSULIN (NovoLOG) PER UNIT SC SCH ×2 (08:08→11:39)
[2019-05-24] MEDS: VITAMIN D 1,000 INTERNATIONAL UNITS TABLET PO SCH (08:08)
[2019-05-24] MEDS: ROSUVASTATIN 10 MG TAB (CRESTOR) PO SCH (08:08)
[2019-05-24] MEDS: GABAPENTIN 300 MG CAP PO SCH (08:08)
[2019-05-24] MEDS: TAMSULOSIN 0.4 MG CAP PO SCH (08:08)
[2019-05-24] MEDS: guaiFENesin ER 600 MG TAB PO SCH (08:08)
[2019-05-24] MEDS: LEVEMIR (INSULIN DETEMIR) 1 UNITS/0.01ML SC SCH (08:08)
[2019-05-24 08:09] VITALS: BP 148/97
[2019-05-24] MEDS: METOPROLOL SUCC (TopROL XL) 50MG **XL** TAB PO SCH (08:09)
[2019-05-24] MEDS: allopurinoL 300 MG TAB PO SCH (08:09)
[2019-05-24] MEDS: PERCOCET 5MG/325MG TAB PO PRN (08:12)
[2019-05-24] MEDS: ACETYLCYSTEINE 10% 30 ML VIAL INH SCH (08:36)
[2019-05-24] MEDS ORDERED: PERCOCET PO (10:36)
[2019-05-24] MEDS ORDERED: MUCI600T31 PO (10:36)
[2019-05-24] MEDS ORDERED: PRED10TA2 PO (10:36)
[2019-05-24] MEDS ORDERED: ACET10VL INH (10:51)
--- NOTE | 2019-05-24 10:54 | REP ---
Two-view chest: 05/24/2019. Indication: Dyspnea. Comparison: 2 days earlier. Findings: Persistent small right pleural effusion is present. There is elevation of the left hemidiaphragm. New spinal stimulators are similarly positioned. There is no pneumothorax. No focal airspace consolidation is present. Mediastinal surgical clips are noted. Impression: Small right pleural effusion. Electronically Signed by Louie Jean Baptiste DO 05/24/2019 10:45 A
--- NOTE | 2019-05-24 17:08 | DSES ---
DATE OF ADMISSION: 05/20/2019 DATE OF DISCHARGE: 05/24/2019 PRIMARY CARE PROVIDER: DC DISCHARGE DIAGNOSES: 1. COPD exacerbation. 2. Type 2 diabetes. 3. Chronic pain. CONSULTANTS: None. HOSPITAL COURSE: This is a 53-year-old male of the [employer] who presented to the emergency department on 05/20/2019 for cough and fever for about 5 days. He had gone to the urgent care earlier in the day and they told him that he had pneumonia. He had increasing shortness of breath so he was referred to the emergency department at [facility]. He said that over the last 5 days prior to presentation. He had increasing shortness of breath, feeling like he could not take a breath. He normally does cough because he is a smoker. However, his sputum production had gone from clear and white to green. If he coughs really hard sometimes will have some red specks in it. He is to be a smoker include the last few months, however this and his still does smoke at home. PAST MEDICAL HISTORY: His past medical history was significant for bullous emphysema and spontaneous pneumothorax status post talc pleurodesis. He was admitted to the hospital for the steroids and an aggressive pulmonary toilet. He received nebulizers breathing treatments and chest physical therapy. For his diabetes and because of steroids we have started him on basal insulin. He was given Percocet for pain secondary to coughing and because his pain was exacerbated by the talc pleurodesis. On the day of discharge he was meeting all discharge criteria. He has been afebrile, and his lung sounds had improved greatly. PHYSICAL EXAMINATION: Vitals: Temperature 97.6, pulse 77 and regular, respiratory rate 16 and unlabored, blood pressure was 148/97, pulse ox was 93% on room air. General: This is a well-nourished, well-developed middle-aged male who appears slightly older than his stated age. He is pleasant and cooperative. HEENT: Mucous membranes are moist. Conjunctiva oral without pallor. Neck: Supple without lymphadenopathy or JVD. No thyromegaly. No bruits. Chest: A right-sided chest pain that was reproducible with palpation of the right-sided ribs six through nine between the midclavicular and mid axillary line. Lungs: Increased AP diameter, lung sounds bilaterally were relatively clear. There are no adventitious breath sounds appreciated, though he does have a diminish diminished respiratory effort and diminished diaphragmatic motion bilaterally. There is no evidence of dullness to percussion nor E to A egophony. Heart: Somewhat distant heart sounds, regular rate and rhythm. No murmurs, gallops or rubs. Abdomen: Soft with a hernia evident in the epigastrium. Normoactive bowel sounds. Extremities: No clubbing, cyanosis or edema. Neuro: Muscle strength 5/5 throughout. Sensation intact bilaterally. Cranial nerves II-XII grossly intact. No focal deficits were noted. Psych: Affect is full. He answers questions appropriately. LABORATORY DATA: CBC: WBC 5.5, hemoglobin 10.8, hematocrit 33.1, platelets 64. Chemistry: Sodium 137, potassium 3.9, chloride 105, carbon dioxide 25, BUN 16, creatinine 0.86, fasting glucose 221, calcium 8.1. Micro: Blood culture was negative after 72 hours, respiratory virus panel was negative. IMAGING STUDIES: CT angiography of the chest done 05/20/2019 showed no evidence for pulmonary embolism. No acute mediastinal or pleural appearing processes, chronic changes to the right hemithorax consistent with given history of prior talc pleurodesis. Chest x-ray Done 05/22/2019 showed a small right pleural effusion with bilateral pleural plaques a tortuous calcified aorta, underlying fibrosis and pulmonary hypertension. No pneumothorax or pneumomediastinum. No definite acute infiltrate. No timo edema. Chest x-ray Done 05/24/2019 showed a small right pleural effusion. No pneumothorax. Similar to x-ray from 05/22/2019. DISCHARGE MEDICATIONS: Mucomyst 400 mg nebulizer twice a day for 14 days. Mucinex 1200 mg by mouth twice a day, Percocet 5/325 mg tablets, 2 tablets by mouth every 6 hours as needed for severe pain with a max daily dose of 8 tablets daily. Prednisone 10 mg taper, ProAir HFA 2 puffs every 4 hours as needed for shortness of breath, allopurinol 300 mg by mouth daily, Symbicort 2 puffs inhaled twice a day, bupropion 300 mg by mouth at bedtime, cholecalciferol 1000 units by mouth daily, diclofenac potassium 50 mg by mouth twice a day, gabapentin 1200 mg by mouth three times a day, DuoNebs every 6 hours, metformin 500 mg by mouth twice a day, metoprolol succinate 50 mg by mouth twice a day, Mirtazapine 45 mg by mouth at bedtime, Zosyn 6 mg by mouth at bedtime, quetiapine 50 mg by mouth twice a day, rosuvastatin 40 mg by mouth daily, Flomax 0.4 mg by mouth daily, Spiriva 18 mcg capsule 1 inhalation daily, trazodone 150 mg by mouth at bedtime. DIET: Consistent-carbohydrate ACTIVITY: As tolerated. FOLLOWUP: With his primary care within the next week. He should continue to use the Acapella to bring up sputum, especially as it is difficult for him to cough. DISPOSITION: Stable. Greater than 30 minutes been on discharge.
[2019-05-25] MEDS ORDERED: MUCI1TAB16 PO ×2 (09:26→11:48)
[2019-05-25] MEDS ORDERED: mucomyst INH (09:26)
[2019-05-25] MEDS ORDERED: PRED10TA2 PO ×3 (09:26→16:11)
[2019-05-25] MEDS ORDERED: PERC5TAB12 PO ×3 (09:26→16:11)
[2019-05-25] MEDS ORDERED: ACET20%4ML INH (11:48)
== END 2019-05-24 12:05 | disposition home or self-care (01) | DRG 192 ==
LOC: M ED 11:47 → M ED INP 17:20 → M MS5PR 18:35
PROVIDERS: ADMIT Internal Medicine; ATTEND Internal Medicine
DX: J44.1 Chronic obstructive pulmonary disease with (acute) exacerbation (principal); E11.9 Type 2 diabetes mellitus without complications; I10 Essential (primary) hypertension; E78.5 Hyperlipidemia, unspecified; N40.0 Benign prostatic hyperplasia without lower urinary tract symptoms; F43.10 Post-traumatic stress disorder, unspecified; Z79.84 Long term (current) use of oral hypoglycemic drugs; Z79.899 Other long term (current) drug therapy; Z87.891 Personal history of nicotine dependence; Z88.8 Allergy status to other drugs, medicaments and biological substances; K52.9 Noninfective gastroenteritis and colitis, unspecified; R07.89 Other chest pain; G89.29 Other chronic pain; Z79.51 Long term (current) use of inhaled steroids

== ENCOUNTER → 2019-05-31 | Outpatient (CLI) | payer OTHER ==
[~2019-05-31] MED LIST changes: +ACET10VL INH; +ACET20%4ML INH; +D 10CHW PO; +DICL50TA2 PO; +GASTROGRAFIN SOLUTION 30ML (Q9963) As Ordered ONE; +ISOVUE-370 76% 100ML VIAL (Q9967) As Ordered ONE; +METF500T13 PO; +MIRT1TAB17 PO; +MUCI1TAB16 PO; +MUCI600T31 PO; +PERC5TAB12 PO; +PERCOCET PO; +ROSU40TA4 PO; +ZYLO300T6 PO; +mucomyst INH
--- NOTE | 2019-06-01 07:33 | REP ---
REASON FOR EXAM: Abdominal hernia. The latest prior for comparison is 09/19/2016 with images of the upper abdomen obtained during chest CT of 05/20/2019. The lung bases are unchanged from the prior chest CT. Contrast utilized today 100 mL Isovue 370. The precontrast enhanced portion of the examination shows hepatic and splenic densities to be within normal limits. There are no choleliths. There is no nephroureterolithiasis, hydronephrosis, or proximal hydroureter. Contrast enhanced portion of the examination shows a small focal area of low density in the lateral segment of the left lobe of the liver measuring 1.2 cm and showing no evidence of contrast enhancement. There are no enhancing hepatic lesions. The spleen, pancreas, adrenal glands, and kidneys are within normal limits. The abdominal aorta and paraaortic regions are within normal limits. There is no free fluid or free air. The intra-abdominal bowel loops and their mesenteries are within normal limits. There is no evidence of an intra-abdominal mass or adenopathy. Since only CT abdomen was obtained without CT pelvis I cannot assess the inguinal regions and I cannot compare the finding of a left inguinal hernia seen on the prior CT of 09/19/2016 to today's abdominal only CT. There is no evidence of a ventral hernia. Bone window technique throughout the examination shows the osseous structures to be stable and intact. IMPRESSION: There is a small hepatic cyst. There is no acute intra-abdominal pathology. I cannot compare the left inguinal hernia seen on the prior CT of the abdomen and pelvis of 09/19/2016 to today's exam since only the abdomen was scanned as ordered. Electronically Signed by Antonio Corrales DO 06/01/2019 11:16 A
== END ==
LOC: M RAD 15:24
PROVIDERS: ATTEND Internal Medicine
DX: R10.9 Unspecified abdominal pain (principal)
CPT/HCPCS: 74170; Q9963; Q9967

== ENCOUNTER 2019-07-07 11:51 | Emergency (ER) | payer OTHER ==
[~2019-07-07] VITALS: Ht 182.9 cm; Wt 79.5 kg
[~2019-07-07 11:51] MED LIST changes: -BUPR300T34 PO; +BUPR300T92 PO; -GASTROGRAFIN SOLUTION 30ML (Q9963) As Ordered ONE; -ISOVUE-370 76% 100ML VIAL (Q9967) As Ordered ONE
[2019-07-07 12:40] LABS: BASO % 0.5 % (0.0-1.0); EOS % 0.5 % (0.0-3.0); HEMATOCRIT 41.1 % (42.0-52.0); HEMOGLOBIN 13.9 g/dl (13.5-17.5); LYMPH # 1.3 10^3/uL (1.5-5.0); LYMPH % 15.9 % (24.0-44.0); MEAN CORPUSCULAR HEMOGLOBIN 30.5 pg (27.0-33.0); MEAN CORPUSCULAR HGB CONC 33.8 g/dl (32.0-36.5); MEAN CORPUSCULAR VOLUME 90.1 fl (80.0-96.0); MONO # 0.9 10^3/uL (0.0-0.8); MONO % 10.3 % (0.0-5.0); NEUTROPHILS # 6.1 10^3/uL (1.5-8.5); NEUTROPHILS % 72.1 % (36.0-66.0); RED BLOOD COUNT 4.56 10^6/uL (4.30-6.10); WHITE BLOOD COUNT 8.4 10^3/uL (4.0-10.0)
[2019-07-07 12:44] LABS: PLATELET COUNT, AUTOMATED 91 10^3/uL (150-450)
[2019-07-07] MEDS ORDERED: NS 1,000 ML IV ONE (12:45)
[2019-07-07] MEDS ORDERED: HumuLIN R (REGULAR) INSULIN (NovoLIN R) **100U/ML** PER UNIT IV ONE ×2 (12:45→14:00)
[2019-07-07 12:50] LABS: INR 1.2; PROTHROMBIN TIME 14.9 SECONDS (11.8-14.0)
[2019-07-07 13:04] LABS: VENOUS BASE EXCESS -10.8 (-2.0-2.0); VENOUS HCO3 13.5 MEQ/L (23.0-27.0); VENOUS O2 SATURATION 90.9 % (60.0-80.0); VENOUS PARTIAL PRESSURE CO2 26.8 mmHg (38.0-50.0); VENOUS PARTIAL PRESSURE O2 59.6 mmHg (30.0-50.0); VENOUS PH 7.321 UNITS (7.330-7.430); VENOUS TOTAL CO2 14.4 MEQ/L (24.0-28.0)
[2019-07-07 13:07] LABS: BLOOD UREA NITROGEN 11 MG/DL (7-18); CALCIUM LEVEL 8.7 MG/DL (8.5-10.1); CARBON DIOXIDE LEVEL 16 MEQ/L (21-32); CHLORIDE LEVEL 97 MEQ/L (98-107); CK-MB VALUE MASS < 1.0 NG/ML (<3.6); CPK CREATINE PHOSPHOKINASE 44 U/L (39-308); CREATININE FOR GFR 1.36 MG/DL (0.70-1.30); FREE T4 1.37 NG/DL (0.76-1.46); GLOMERULAR FILTRATION RATE 58.6 (>56); GLUCOSE, FASTING 336 MG/DL (70-100); MAGNESIUM LEVEL 1.6 MG/DL (1.8-2.4); MB/CK RELATIVE INDEX 2.27 (< OR =4); POTASSIUM SERUM 3.4 MEQ/L (3.5-5.1); SODIUM LEVEL 132 MEQ/L (136-145); THYROID STIMULATING HORMONE 0.711 uIU/ML (0.358-3.740); TROPONIN I < 0.02 NG/ML (< 0.10)
[2019-07-07 13:11] LABS: HEMOGLOBIN A1c 12.7 %
--- NOTE | 2019-07-07 13:35 | REP ---
AP PORTABLE CHEST: 07/07/2019. Comparison: Chest x-ray 05/24/2019, AP chest 09/19/2016, CT angiogram chest 05/20/2019. Clinical history: Syncope/near syncope. Prior history talc pleurodesis. Findings: Study again shows some elevation of the left diaphragm with some volume loss and some linear fibroatelectatic change left base. There is no evidence of an acute infiltrate, definite effusion, atelectasis or mass. Nodular density in the right base as seen on CT, pleural-based and hyperdense on that study. Chronic lung field changes are stable. There is no pneumothorax or pneumomediastinum. The heart not grossly enlarged. The aorta and airway intact. Dorsal column stimulator to the upper thoracic region terminating at about T6. Impression: 1. Chronic changes in the lung naranjo with elevation left diaphragm, some basilar fibrotic changes, parenchymal scarring and nodule all as seen on CT 05/20/2019. 2. No effusion, acute infiltrate, cardiomegaly or edema. 3. Dorsal column stimulator noted. Stable exam. Electronically Signed by Dayday Lopez MD 07/07/2019 01:45 P
--- NOTE | 2019-07-07 13:42 | REP ---
KUB: SINGLE VIEW. HISTORY: Nausea and vomiting. COMPARISON STUDY: April 10, 2018 FINDINGS: An electronic power plant for dorsal column stimulator projects in the left iliac region. There is a prosthetic right hip noted in place. The bowel gas pattern is normal. There is a air and some stool in the proximal and distal colon. Psoas margins and flank stripes are intact. There is pleuroparenchymal scarring in the right lung base. This appears to be unchanged. IMPRESSION: Unremarkable bowel gas pattern. Dorsal column stimulator power plant and right hip prosthesis noted. Electronically Signed by Dg Beth MD 07/07/2019 07:03 P
[2019-07-07 14:07] LABS: ALBUMIN 3.9 GM/DL (3.2-5.2); ALT/SGPT 39 U/L (12-78); BILIRUBIN,DIRECT 0.3 MG/DL (0.0-0.2); BILIRUBIN,TOTAL 0.7 MG/DL (0.2-1.0); ETHYL ALCOHOL (ETHANOL) < 0.003 % (0.000-0.010); LIPASE 272 U/L (73-393); TOTAL PROTEIN 6.9 GM/DL (6.4-8.2)
[2019-07-07 14:09] LABS: ACETONE/KETONE > 46.00 MG/DL (<2.81)
[2019-07-07] MEDS ORDERED: ONDANSETRON 4MG/2ML VIAL (J2405) IV ONE (14:15)
[2019-07-07 16:00] VITALS: BP 129/83
[2019-07-07] MEDS ORDERED: ZOFR4TAB16 PO ×2 (16:05→16:14)
--- NOTE | 2019-07-07 20:02 | ECGEPIP ---
[facility] - ED Test Date: 2019-07-07 Pat Name: GENOVEVA LUNA Department: Room: - Gender: Male [employer]: : [id number] Requested By: Jordyn Stoner Order Number: [id number] Reading MD: Fahad Carlson Measurements Intervals [place] Rate: 97 P: -22 TX: 160 QRS: -4 QRSD: 87 T: -16 QT: 337 QTc: 430 Interpretive Statements SINUS RHYTHM POOR R WAVE PROGRESSION NSTTW ABNORMALITIES SIMILAR TO 05/20/19 Electronically Signed on 07-07-2019 20:01:51 EST by Fahad Carlson
== END 2019-07-07 16:53 | disposition home or self-care (01) ==
LOC: M ED 11:51
DX: E11.65 Type 2 diabetes mellitus with hyperglycemia (principal); I10 Essential (primary) hypertension; R91.8 Other nonspecific abnormal finding of lung field; Z88.8 Allergy status to other drugs, medicaments and biological substances; Z96.641 Presence of right artificial hip joint; Z96.9 Presence of functional implant, unspecified
CPT/HCPCS: 71045; 74018; 80048; 80076; 82010; 82550; 82553; 82803; 83036; 83605; 83690; 83735; 84439; 84443; 84484; 85025; 85049; 85055; 85610; 93005; 93041; 96361; 96374; 96375; 99285; G0480; J2405

== ENCOUNTER → 2019-08-11 | Outpatient (CLI) | payer OTHER ==
[~2019-08-11] MED LIST changes: -SUCR10SS PO; +SUCR1ORA2 PO; +ZOFR4TAB16 PO
--- NOTE | 2019-08-11 11:33 | REPVR ---
PROCEDURE INFORMATION: Exam: CT Lumbar Spine Without Contrast Exam date and time: 08/11/2019 10:44 AM Age: 53 years old Clinical indication: Other: Radiculopathy; Prior surgery; Surgery date: 6+ months; Surgery type: Spinal cord stimulator; Additional info: Lumbar radiculopathy TECHNIQUE: Imaging protocol: Computed tomography images of the lumbar spine without contrast. Radiation optimization: All CT scans at this facility use at least one of these dose optimization techniques: automated exposure control; mA and/or kV adjustment per patient size (includes targeted exams where dose is matched to clinical indication); or iterative reconstruction. COMPARISON: MRI-Spine, L.S. without con 01/16/2015 3:52 PM FINDINGS: Vertebrae: Hypoplastic ribs are noted at the L1 level. There is no acute fracture. Alignment is anatomic. Discs/Spinal canal/Neural foramina: Mild degenerative changes are present. There is no severe spinal canal stenosis. Degenerative changes do not appear significantly changed the prior MRI. Pleural space: Pleural calcification is noted in the right hemithorax. Vasculature: Atherosclerotic calcifications are noted within the aorta and its branches. Soft tissues: Unremarkable. IMPRESSION: 1. No acute abnormality. 2. Chronic findings as discussed above. Electronically signed by: Mathew Cox On 08/11/2019 11:33:02 AM
== END ==
LOC: M RAD 10:37
PROVIDERS: ATTEND Nurse Practitioner Family
DX: M54.5 Low back pain (principal)